=== PATIENT | male | born 1940 | race Caucasian/White ===

== ENCOUNTER 2017-02-05 09:51 | Inpatient (IN) | payer MEDICARE ==
[2017-02-05] VITALS (18 sets, daily range): BP systolic 131–174; BP diastolic 65–94; PULSE 57–75; RESP 16–20; TEMP 97.6–97.8; O2SAT 93–99
[~2017-02-05] VITALS: Ht 170.2 cm; Wt 83.1 kg
[~2017-02-05 09:51] MED LIST: MEDR4PAK3 PO; METO100T PO; VYTO10TA32 PO
--- NOTE | 2017-02-05 10:09 | PD ---
HPI Chief Complaint: Respiratory Symptoms Time Seen by Provider: 09:58 Travel History International Travel<30 days: No Contact w/Intl Traveler<30days: No Traveled to known affect area: No History of Present Illness HPI This is a 76-year-old male who has a history of coronary artery disease who presents to the emergency department with 3 days of increasing shortness of breath described as difficulty taking a deep breath, worse with exertion and worse with laying flat. He says he was up all night last night trying to catch his breath. He says his daughter is sick with bronchitis. He denies any productive cough, fevers or chills but has had some rhinorrhea. He recently returned from a car ride to [facility] during which she was in the car for 2 days straight. He denies any leg swelling. PFSH Past Medical History High Cholesterol: Yes Coronary Artery Disease: Yes Gout: Yes Hypertension: Yes Past Surgical History Coronary Artery Bypass Graft: Yes Social History Alcohol Use: Yes ("FEW DRINKS PER WEEK") Tobacco Use: No Allergies-Medications (Allergen,Severity, Reaction): Coded Allergies: No Known Allergies (Unverified , 02/05/17) Reported Meds & Prescriptions Reported Meds & Active Scripts Active Reported Isosorbide Mononitrate 20 Mg Tab 30 Mg PO DAILY Take 2 doses 7 hours apart. Aspir-81 (Aspirin) 81 Mg Tabdr 81 Mg PO DAILY Nitrostat SL (Nitroglycerin) 0.4 Mg Subl 0.4 Mg SL DIRECTED PRN 1 tablet under the tongue as needed for chest pain. Repeat every 5 minutes for a total of 3 DOSES or call 911 if NO relief. Proscar (Finasteride) 5 Mg Tab 5 Mg PO DAILY Do not crush. Amlodipine (Amlodipine Besylate) 10 Mg Tab 10 Mg PO DAILY Rosuvastatin (Rosuvastatin Calcium) 10 Mg Tab 10 Mg PO DAILY Clopidogrel (Clopidogrel Bisulfate) 75 Mg Tab 75 Mg PO DAILY Metoprolol Tartrate 100 Mg Tab 100 Mg PO BID Ranexa ER 12 HR (Ranolazine) 500 Mg Tab 500 Mg PO BID Review of Systems Except as stated in HPI: all other systems reviewed are Neg Physical Exam Narrative GENERAL:Well appearing, no acute distress SKIN: Focused skin assessment warm and dry. HEAD: Atraumatic. Normocephalic. EYES: Pupils equal and round. No injection or drainage. ENT: Moist mucous membranes NECK: Trachea midline. CARDIOVASCULAR: Regular rate and rhythm. No murmur appreciated. RESPIRATORY: Mild expiratory wheeze, mild tachypnea GASTROINTESTINAL: Abdomen soft, non-tender, nondistended. MUSCULOSKELETAL: No obvious deformities. NEUROLOGICAL: Awake and alert. No obvious cranial nerve deficits. Moving all extremities. PSYCHIATRIC: Appropriate mood and affect; insight and judgment normal. Data Data Last Documented VS Vital Signs Date Time Temp Pulse Resp B/P Pulse Ox O2 Delivery O2 Flow Rate FiO2 02/05/17 11:05 64 16 166/84 98 Nasal Cannula 2 02/05/17 09:53 97.8 Orders Complete Blood Count With Diff (02/05/17 10:08) Comprehensive Metabolic Panel (02/05/17 10:08) D-Dimer (02/05/17 10:08) Troponin I (02/05/17 10:08) Iv Access Insert/Monitor (02/05/17 10:08) Electrocardiogram (02/05/17 10:08) Ecg Monitoring (02/05/17 10:08) Oximetry (02/05/17 10:08) Oxygen Administration (02/05/17 10:08) Chest, Single Ap (02/05/17 10:08) Sodium Chloride 0.9% Flush (Ns Flush) (02/05/17 10:15) Albuterol-Ipratropium Neb (Duoneb Neb) (02/05/17 10:15) Ventilation & Perfusion Scan (02/05/17 ) B-Type Natriuretic Peptide (02/05/17 10:39) Admit Order (Ed Use Only) (02/05/17 12:02) Consult Cardiology (02/05/17 ) Admit To Inpatient (02/05/17 ) Vital Signs (Adult) Q4H (02/05/17 12:03) Activity Bed Rest (02/05/17 12:03) 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 / 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 .CONTINUOUS (02/05/17 12:03) Diet Heart Healthy (02/05/17 Lunch) Sodium Chloride 0.9% Flush (Ns Flush) (02/05/17 12:15) Sodium Chloride 0.9% Flush (Ns Flush) (02/05/17 21:00) Ondansetron Inj (Zofran Inj) (02/05/17 12:15) Comprehensive Metabolic Panel (02/06/17 06:00) Complete Blood Count With Diff (02/06/17 06:00) Naloxone Inj (Narcan Inj) (02/05/17 12:15) Inpatient Certification (02/05/17 ) Labs Laboratory Tests Test 02/05/17 10:10 White Blood Count 9.5 TH/MM3 Red Blood Count 4.18 MIL/MM3 Hemoglobin 12.5 GM/DL Hematocrit 35.8 % Mean Corpuscular Volume 85.6 FL Mean Corpuscular Hemoglobin 29.9 PG Mean Corpuscular Hemoglobin 35.0 % Concent Red Cell Distribution Width 14.0 % Platelet Count 222 TH/MM3 Mean Platelet Volume 9.7 FL Neutrophils (%) (Auto) 75.6 % Lymphocytes (%) (Auto) 13.3 % Monocytes (%) (Auto) 6.0 % Eosinophils (%) (Auto) 2.8 % Basophils (%) (Auto) 2.3 % Neutrophils # (Auto) 7.1 TH/MM3 Lymphocytes # (Auto) 1.3 TH/MM3 Monocytes # (Auto) 0.6 TH/MM3 Eosinophils # (Auto) 0.3 TH/MM3 Basophils # (Auto) 0.2 TH/MM3 CBC Comment DIFF FINAL Differential Comment D-Dimer Quantitative (PE/DVT) 0.75 MG/L FEU Sodium Level 138 MEQ/L Potassium Level 4.4 MEQ/L Chloride Level 103 MEQ/L Carbon Dioxide Level 25.3 MEQ/L Anion Gap 10 MEQ/L Blood Urea Nitrogen 29 MG/DL Creatinine 1.60 MG/DL Estimat Glomerular Filtration 42 ML/MIN Rate Random Glucose 210 MG/DL Calcium Level 9.0 MG/DL Total Bilirubin 0.8 MG/DL Aspartate Amino Transf 22 U/L (AST/SGOT) Alanine Aminotransferase 46 U/L (ALT/SGPT) Alkaline Phosphatase 70 U/L Troponin I 0.03 NG/ML B-Type Natriuretic Peptide 665 PG/ML Total Protein 7.2 GM/DL Albumin 3.8 GM/DL MDM Medical Decision Making Medical Screen Exam Complete: Yes Emergency Medical Condition: Yes Interpretation(s) Afebrile, no tachycardia, normotensive EKG: Sinus arrhythmia, left axis deviation, ST depressions in the lateral leads Mild anemia Renal insufficiency Troponin is 0.03 BNP is 665 Last 24 hours Impressions Chest X-Ray 02/05/17 1008 Signed Impressions: Service Date/Time: Sunday, February 05, 2017 10:24 - CONCLUSION: 1. Interstitial opacities in lower lung zones bilaterally. These are of uncertain chronicity since no prior imaging studies are available. In the acute setting this could represent interstitial pulmonary edema. 2. Mildly enlarged cardiac silhouette. Dain Calabrese MD Differential Diagnosis Congestive heart failure, pulmonary embolism, bronchitis, acute coronary syndrome Narrative Course This is a 76-year-old male who presents to the emergency department with shortness of breath and orthopnea. He has a history of valvular disease and coronary artery disease. He also had a recent long trip to [facility]. He was placed on a monitor and an IV was established. Labs were obtained which demonstrate renal insufficiency and a BNP is 665. Chest x-ray demonstrates some pulmonary edema. D-dimer is slightly elevated, likely normal for age but in the setting of recent travel VQ scan will be ordered. I spoke to Dr. Chicas regarding the patient's new congestive heart failure which is likely the etiology of his symptoms. He recommended the patient be transferred to the main hospital for possible intervention in the setting of valvular disease. Physician Communication Physician Communication Discussed with Dr. Chicas and Dr. Herbert Diagnosis Primary Impression: Congestive heart failure Qualified Code: I50.9 - Acute on chronic congestive heart failure, unspecified congestive heart failure type Admitting Information Admitting Physician Requests: Admit Cassia Wan MD February 05, 2017 10:09
[2017-02-05] MEDS ORDERED: RESP: ALBUTEROL 2.5 MG/IPRATROPIUM 0.5 MG NEB (SCH) INH ONE (10:15)
[2017-02-05] MEDS ORDERED: SODIUM CHLORIDE 0.9% FLUSH 10 ML FLUSH IVF PRN (10:15)
[2017-02-05 10:19] LABS: AUTOMATED NEUTROPHIL # 7.1 TH/MM3 (1.8-7.7); BASOPHIL # 0.2 TH/MM3 (0-0.2); BASOPHIL % 2.3 % (0.0-2.0); EOSINOPHIL # 0.3 TH/MM3 (0-0.4); EOSINOPHIL % 2.8 % (0.0-4.0); HEMATOCRIT 35.8 % (39.0-51.0); HEMO FLAGS DIFF FINAL; LYMPH % 13.3 % (9.0-44.0); LYMPHOCYTE # 1.3 TH/MM3 (1.0-4.8); MEAN CELL VOLUME 85.6 FL (80.0-100.0); MEAN CORPUSCULAR HEMOGLOBIN 29.9 PG (27.0-34.0); NEUT % 75.6 % (16.0-70.0); PLATELET COUNT 222 TH/MM3 (150-450); RED BLOOD COUNT 4.18 MIL/MM3 (4.50-5.90); WHITE BLOOD COUNT 9.5 TH/MM3 (4.0-11.0)
[2017-02-05 10:27] LABS: CHLORIDE 103 MEQ/L (98-107); POTASSIUM 4.4 MEQ/L (3.5-5.1); SODIUM (NA) 138 MEQ/L (136-145)
[2017-02-05 10:31] LABS: ANION GAP 10 MEQ/L (5-15); BICARBONATE 25.3 MEQ/L (21.0-32.0); BLOOD UREA NITROGEN 29 MG/DL (7-18)
[2017-02-05 10:34] LABS: ALT (GPT) 46 U/L (12-78); AST (GOT) 22 U/L (15-37); GLOMERULAR FILTRATION RATE 42 ML/MIN (>89)
[2017-02-05 10:35] LABS: TOTAL BILIRUBIN ADULT 0.8 MG/DL (0.2-1.0)
[2017-02-05 10:37] LABS: ALKALINE PHOSPHATASE 70 U/L (45-117)
[2017-02-05] MEDS ORDERED: ASPI81TA81 PO (10:42)
[2017-02-05] MEDS ORDERED: PROS5TAB PO (10:42)
[2017-02-05] MEDS ORDERED: NITR0.4S SL (10:42)
[2017-02-05] MEDS ORDERED: RANO500 PO (10:42)
[2017-02-05] MEDS ORDERED: CLOP75TA PO (10:42)
[2017-02-05] MEDS ORDERED: AMLO10TA2 PO (10:42)
[2017-02-05] MEDS ORDERED: METO100T PO (10:42)
[2017-02-05] MEDS ORDERED: ISOS20TA PO (10:42)
[2017-02-05] MEDS ORDERED: ROSU1TAB6 PO (10:42)
--- NOTE | 2017-02-05 10:54 | RADHPO ---
EXAM DATE/TIME: 02/05/2017 10:24 [facility] COMPARISON: No previous studies available for comparison. INDICATIONS : Short of breath. MEDICAL HISTORY : Cardiovascular disease. SURGICAL HISTORY : CABG. Coronary artery stent. ENCOUNTER: Initial ACUITY: 2 days PAIN SCORE: 0/10 LOCATION: Bilateral chest FINDINGS: Portable AP view of the chest demonstrates mildly enlarged cardiac silhouette. Patient is post median sternotomy. Lungs are underinflated and there are interstitial opacities in the lower lung zones andrea aterally. No pneumothorax or definite pleural effusion is seen. The bones and soft tissues demonstrat e no acute finding. CONCLUSION: 1. Interstitial opacities in lower lung zones bilaterally. These are of uncertain chronicity since no prior imaging studies are available. In the acute setting this could represent interstitial pulmonar y edema. 2. Mildly enlarged cardiac silhouette. Dain Calabrese MD on February 05, 2017 at 10:51 Board Certified Radiologist. This report was verified electronically.
[2017-02-05] MEDS ORDERED: SODIUM CHLORIDE 0.9% FLUSH 10 ML FLUSH IV FLUSH PRN (12:15)
[2017-02-05] MEDS ORDERED: NALOXONE HCL 0.4 MG/ML AMP IV PRN (12:15)
--- NOTE | 2017-02-05 13:55 | RADHPO ---
EXAM DATE/TIME: 02/05/2017 13:04 [facility] COMPARISON: CHEST SINGLE AP, February 05, 2017, 10:24. INDICATIONS : Shortness of breath for 3 days. Abnormal chest x-ray demonstrating interstitial opacities.. DOSE: 8.7 mCi Tc99m MAA IV 1.3 mCi Tc99m DTPA aerosol MEDICAL HISTORY : Myocardial infarction. Hypercholesterolemia. Hypertension. Stroke. SURGICAL HISTORY : Coronary artery stent. CABG ENCOUNTER: Initial ACUITY: 3 days PAIN SCALE: 0/10 LOCATION: chest TECHNIQUE: Following five minutes of tidal breathing of DTPA aerosol, planar images of the lungs were performed in eight projections. The patient was then injected with MAA, and eight-view perfusion scan was perf ormed. FINDINGS: There is an inhomogeneous pattern of aerosol delivery to the periphery of both lungs. There is moder ate central deposition of the tracer. No large or moderate focal ventilatory defects are seen. The perfusion lung scan demonstrates a mildly inhomogeneous pattern of uptake in both lungs. No larg e or moderate segmental or subsegmental defects are seen. CONCLUSION: Low probability for pulmonary embolism. Beto Terrazas MD on February 05, 2017 at 13:51 Board Certified Radiologist. This report was verified electronically.
--- NOTE | 2017-02-05 15:38 | HHI.HP ---
[facility] Service [facility] Primary Care Physician Milton Rosa MD Admission Diagnosis congestive heart failure, valvular disease Diagnoses: (1) Congestive heart failure Diagnosis: Principal (2) Abdominal distention (3) Aortic stenosis Diagnosis: Principal (4) CAD (coronary artery disease) Diagnosis: Secondary (5) Pulmonary edema Diagnosis: Principal (6) Old MA (myocardial infarction) Diagnosis: Secondary (7) CHF exacerbation Diagnosis: Principal (8) Systolic and diastolic CHF, acute on chronic Diagnosis: Principal (9) Hx of CABG Diagnosis: Secondary Travel History International Travel<30 Days: No Contact w/Intl Traveler <30 Da: No Traveled to Known Affected Are: No History of Present Illness Mr. Roland is a 76-year-old male. He is here with 3 days of increasing shortness of breath. She also notes that his abdomen feels like it's becoming more distended. He feels this might be affecting his breathing. Symptoms are worse when he lays flat. He feels he has been having difficulty sleeping by not being else of breathe. She has not had a cough but reports that his daughter is home sick with bronchitis. She was on a car trip to [place] which lasted 2 days. No complaints of bilateral leg pain or swelling. Past medical history includes CHF, old MA, CABG 3, coronary stents, coronary artery disease , aortic stenosis, and mitral valve regurgitation. She is not a smoker and only drinks occasionally. No chest pain reported. No syncope or presyncope. 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 Review of Systems Constitutional: COMPLAINS OF: Fatigue, DENIES: Fever, Weight loss, Chills Eyes: DENIES: Diplopia Ears, nose, mouth, throat: DENIES: Hearing loss, Vertigo Respiratory: COMPLAINS OF: Shortness of breath, DENIES: Cough, Wheezing Cardiovascular: COMPLAINS OF: Dyspnea on Exertion, DENIES: Chest pain, Syncope Gastrointestinal: DENIES: Abdominal pain, Black stools, Bloody stools Musculoskeletal: DENIES: Joint pain, Muscle aches, Stiffness Integumentary: DENIES: Abnormal pigmentation Hematologic/lymphatic: DENIES: Bruising Immunologic/allergic: DENIES: Eczema Neurologic: DENIES: Abnormal gait Psychiatric: DENIES: Anxiety Abdominal distention Past Family Social History Past Medical History CHF, old MA, CABG 3, coronary stents, coronary artery disease, aortic stenosis , mitral valve regurgitation Past Surgical History Discharge 3 Reported Medications Reported Meds & Active Scripts Active Reported Isosorbide Mononitrate 20 Mg Tab 30 Mg PO DAILY Take 2 doses 7 hours apart. Aspir-81 (Aspirin) 81 Mg Tabdr 81 Mg PO DAILY Nitrostat SL (Nitroglycerin) 0.4 Mg Subl 0.4 Mg SL DIRECTED PRN 1 tablet under the tongue as needed for chest pain. Repeat every 5 minutes for a total of 3 DOSES or call 911 if NO relief. Proscar (Finasteride) 5 Mg Tab 5 Mg PO DAILY Do not crush. Amlodipine (Amlodipine Besylate) 10 Mg Tab 10 Mg PO DAILY Rosuvastatin (Rosuvastatin Calcium) 10 Mg Tab 10 Mg PO DAILY Clopidogrel (Clopidogrel Bisulfate) 75 Mg Tab 75 Mg PO DAILY Metoprolol Tartrate 100 Mg Tab 100 Mg PO BID Ranexa ER 12 HR (Ranolazine) 500 Mg Tab 500 Mg PO BID Allergies: Coded Allergies: No Known Allergies (Unverified , 02/05/17) Family History Noncontributory Social History Occasional alcohol use No smoking No drug abuse Physical Exam Vital Signs Vital Signs Date Time Temp Pulse Resp B/P Pulse Ox O2 Delivery O2 Flow Rate FiO2 02/05/17 14:25 69 16 164/90 95 Room Air 02/05/17 12:15 66 16 162/94 97 Nasal Cannula 2 02/05/17 11:05 64 16 166/84 98 Nasal Cannula 2 02/05/17 10:23 97 Nasal Cannula 2.00 02/05/17 10:15 18 98 Nasal Cannula 2 02/05/17 10:15 98 Nasal Cannula 2 02/05/17 10:15 62 18 98 Nasal Cannula 2 02/05/17 10:05 67 16 174/85 96 Room Air 02/05/17 09:53 97.8 71 18 139/78 98 Physical Exam GENERAL: NAD, A&Ox3 SKIN: Warm and dry. HEAD: Normocephalic. EYES: No scleral icterus. No injection or drainage. NECK: Supple, trachea midline. No JVD or lymphadenopathy. CARDIOVASCULAR: Regular rate and rhythm without murmurs, gallops, or rubs. RESPIRATORY: Breath sounds equal bilaterally. No accessory muscle use. Bilateral base crackles. GASTROINTESTINAL: Abdomen soft, non-tender. Abdominal distention. MUSCULOSKELETAL: No cyanosis. No edema of lower extremities. Laboratory Laboratory Tests Test 02/05/17 10:10 White Blood Count 9.5 Red Blood Count 4.18 Hemoglobin 12.5 Hematocrit 35.8 Mean Corpuscular Volume 85.6 Mean Corpuscular Hemoglobin 29.9 Mean Corpuscular Hemoglobin 35.0 Concent Red Cell Distribution Width 14.0 Platelet Count 222 Mean Platelet Volume 9.7 Neutrophils (%) (Auto) 75.6 Lymphocytes (%) (Auto) 13.3 Monocytes (%) (Auto) 6.0 Eosinophils (%) (Auto) 2.8 Basophils (%) (Auto) 2.3 Neutrophils # (Auto) 7.1 Lymphocytes # (Auto) 1.3 Monocytes # (Auto) 0.6 Eosinophils # (Auto) 0.3 Basophils # (Auto) 0.2 CBC Comment DIFF FINAL Differential Comment D-Dimer Quantitative (PE/DVT) 0.75 Sodium Level 138 Potassium Level 4.4 Chloride Level 103 Carbon Dioxide Level 25.3 Anion Gap 10 Blood Urea Nitrogen 29 Creatinine 1.60 Estimat Glomerular Filtration 42 Rate Random Glucose 210 Calcium Level 9.0 Total Bilirubin 0.8 Aspartate Amino Transf 22 (AST/SGOT) Alanine Aminotransferase 46 (ALT/SGPT) Alkaline Phosphatase 70 Troponin I 0.03 B-Type Natriuretic Peptide 665 Total Protein 7.2 Albumin 3.8 Result Diagram: 02/05/17 1010 02/05/17 1010 Assessment and Plan Problem List: (1) Congestive heart failure ICD Code: I50.9 Status: Acute (2) Abdominal distention ICD Code: R14.0 Status: Acute (3) Aortic stenosis ICD Code: I35.0 Status: Acute (4) CAD (coronary artery disease) ICD Code: I25.10 Status: Acute (5) Pulmonary edema ICD Code: J81.1 Status: Acute (6) Old MA (myocardial infarction) ICD Code: I25.2 Status: Acute (7) CHF exacerbation ICD Code: I50.9 Status: Acute (8) Systolic and diastolic CHF, acute on chronic ICD Code: I50.43 Status: Acute (9) Hx of CABG ICD Code: Z95.1 Status: Acute Assessment and Plan assessment and plan 76-year-old male with chronic congestive heart failure and aortic stenosis Diastolic and systolic CHF with acute exacerbation on chronic state Aortic stenosis Mitral valve regurg Pulmonary edema Possible ascites Diuresis may benefit but will need to occur cautiously given his aortic stenosis Lasix 10 mg IV every 6 hours Follow on telemetry Continue home dose of metoprolol Consult cardiology Abdominal ultrasound to evaluate for ascites, distended feeling may be secondary to bowel edema without ascites VQ scan shows no evidence of palmar embolus Coronary artery disease History of coronary stents History of CABG 3 Old myocardial infarction Continue home medications including aspirin, isosorbide mononitrate, when necessary nitroglycerin Continue Plavix Continue Ranexa Acute kidney injury Light diuresis Chronic kidney disease may be present Follow renal function Hyperglycemia Possible diabetes mellitus type 2 (the patient does not report that his condition) Follow blood sugars Insulin sliding scale Diabetic diet Benign prostatic hypertrophy Continue Proscar Hypertension continue amlodipine next Follow blood pressure Hyperlipidemia Continue statin DVT prophylaxis Lovenox Physician Certification 2 Midnight Certification Type: Admission for Inpatient Services Order for Inpatient Services The services are ordered in accordance with Medicare regulations or non- Medicare payer requirements, as applicable. In the case of services not specified as inpatient-only, they are appropriately provided as inpatient services in accordance with the 2-midnight benchmark. Estimated LOS (days): 3 days is the estimated time the patient will need to remain in the hospital, assuming treatment plan goals are met and no additional complications. Post-Hospital Plan: Home Problem Qualifiers (1) Congestive heart failure: Qualified Code: I50.9 - Acute on chronic congestive heart failure, unspecified congestive heart failure type Ken Herbert MD February 05, 2017 3:38 pm
[2017-02-05] MEDS ORDERED: DEXTROSE 50% IN WATER 50 ML VIAL(D50) IV PRN (15:45)
[2017-02-05] MEDS ORDERED: NITROGLYCERIN 0.4 MG SL 25 TABS/BTL SL PRN (15:45)
[2017-02-05] MEDS ORDERED: GLUCAGON 1 MG/ML VIAL OTHER PRN (15:45)
[2017-02-05] MEDS: INSULIN ASPART SUPPLEMENTAL SCALE SQ SCH ×2 (16:00→21:00)
--- NOTE | 2017-02-05 16:57 | RADHPO ---
EXAM DATE/TIME: 02/05/2017 16:06 [facility] COMPARISON: No previous studies available for comparison. INDICATIONS : Abdominal distention. MEDICAL HISTORY : Hypercholesterolemia. Hypertension. CVA. Coronary artery disease. Dyspnea. Gout. SURGICAL HISTORY : CABG. Coronary artery stent. Cardiac cath. Twisted bowel repair. Right leg skin graft. ENCOUNTER: Initial ACUITY: 1 day PAIN SCORE: 0/10 LOCATION: Abdomen. AREA EVALUATED: Abdominal quadrants FINDINGS: Imaging of the abdomen and pelvis was performed to evaluate for ascites for possible paracentesis. CONCLUSION: No significant ascites Dain Chase MD on February 05, 2017 at 16:55 Board Certified Radiologist. This report was verified electronically.
[2017-02-05] MEDS: FUROSEMIDE 20 MG/2 ML VIAL IV PUSH SCH ×2 (16:59→22:25)
[2017-02-05] MEDS: ENOXAPARIN SODIUM 30 MG/0.3 ML SYRINGE SQ SCH (17:00)
[2017-02-05] MEDS ORDERED: RESP: ALBUTEROL 2.5 MG/IPRATROPIUM 0.5 MG NEB (PRN) NEB (21:15)
[2017-02-05] MEDS: METOPROLOL TARTRATE 100 MG TAB PO SCH (22:26)
[2017-02-05] MEDS: RANOLAZINE 500 MG EXTENDED RELEASE TAB PO SCH (22:27)
[2017-02-05] MEDS: ONDANSETRON HCL 4 MG/2 ML VIAL IVP PRN (22:27)
[2017-02-05] MEDS: SODIUM CHLORIDE 0.9% FLUSH 10 ML FLUSH IV FLUSH SCH (22:27)
[2017-02-06] VITALS (26 sets, daily range): BP systolic 107–136; BP diastolic 54–79; PULSE 52–88; RESP 16–18; TEMP 97.6–98.2; O2SAT 94–99
[2017-02-06] MEDS: INSULIN ASPART SUPPLEMENTAL SCALE SQ SCH (05:40)
[2017-02-06] MEDS: ISOSORBIDE MONONITRATE 30 MG TAB PO SCH (05:40)
[2017-02-06] MEDS: FUROSEMIDE 20 MG/2 ML VIAL IV PUSH SCH ×4 (05:40→21:19)
[2017-02-06 06:22] LABS: AUTOMATED NEUTROPHIL # 5.8 TH/MM3 (1.8-7.7); BASOPHIL # 0.1 TH/MM3 (0-0.2); BASOPHIL % 0.6 % (0.0-2.0); EOSINOPHIL # 0.4 TH/MM3 (0-0.4); HEMATOCRIT 33.8 % (39.0-51.0); HEMO FLAGS DIFF FINAL; LYMPH % 19.8 % (9.0-44.0); LYMPHOCYTE # 1.7 TH/MM3 (1.0-4.8); MEAN CELL VOLUME 85.4 FL (80.0-100.0); MEAN CORPUSCULAR HEMOGLOBIN 29.3 PG (27.0-34.0); MEAN CORPUSCULAR HGB CONC 34.3 % (32.0-36.0); MONO % 9.5 % (0.0-8.0); NEUT % 66.1 % (16.0-70.0); PLATELET COUNT 213 TH/MM3 (150-450); RED BLOOD COUNT 3.96 MIL/MM3 (4.50-5.90); RED CELL DISTRIBUTION WIDTH 14.6 % (11.6-17.2); WHITE BLOOD COUNT 8.8 TH/MM3 (4.0-11.0)
[2017-02-06 06:49] LABS: ANION GAP 9 MEQ/L (5-15); AST (GOT) 19 U/L (15-37); BICARBONATE 28.7 MEQ/L (21.0-32.0); BLOOD UREA NITROGEN 27 MG/DL (7-18); CHLORIDE 102 MEQ/L (98-107); GLOMERULAR FILTRATION RATE 41 ML/MIN (>89); POTASSIUM 4.1 MEQ/L (3.5-5.1); SODIUM (NA) 140 MEQ/L (136-145)
[2017-02-06 06:54] LABS: ALKALINE PHOSPHATASE 60 U/L (45-117); ALT (GPT) 37 U/L (12-78); TOTAL BILIRUBIN ADULT 1.1 MG/DL (0.2-1.0)
[2017-02-06] MEDS: RANOLAZINE 500 MG EXTENDED RELEASE TAB PO SCH ×2 (08:41→21:18)
[2017-02-06] MEDS: SODIUM CHLORIDE 0.9% FLUSH 10 ML FLUSH IV FLUSH SCH ×2 (08:41→21:00)
[2017-02-06] MEDS: CLOPIDOGREL 75 MG TAB PO SCH (08:41)
[2017-02-06] MEDS: ATORVASTATIN 20 MG TAB PO SCH (08:41)
[2017-02-06] MEDS: ASPIRIN EC 81 MG TABEC PO SCH (08:41)
[2017-02-06] MEDS: METOPROLOL TARTRATE 100 MG TAB PO SCH ×2 (08:42→21:19)
[2017-02-06] MEDS: FINASTERIDE 5 MG TAB PO SCH (08:42)
[2017-02-06] MEDS: ONDANSETRON HCL 4 MG/2 ML VIAL IVP PRN (08:43)
--- NOTE | 2017-02-06 09:00 | HHI.PR ---
Subjective Remarks Patient seen for f/u SOB. 02/06/17-patient seen this AM. No acute events overnight. Pulse in the 50s overnight. Other vitals WNL. Nasir reports SOB improving with breathing tx. Has been able to walk around room without getting SOB now. Wants more frequent breathing tx. No CP. No F/C. He has no other complaints today. Objective Vitals Vital Signs Date Time Temp Pulse Resp B/P Pulse Ox O2 Delivery O2 Flow Rate FiO2 02/06/17 06:48 54 02/06/17 05:00 54 02/06/17 04:00 52 02/06/17 03:20 98.0 56 16 122/59 99 02/06/17 03:20 52 02/06/17 02:25 52 02/06/17 01:44 53 02/06/17 00:00 55 02/05/17 23:51 59 02/05/17 23:00 97.8 57 18 131/65 93 02/05/17 22:16 98 Nasal Cannula 2.00 02/05/17 22:00 60 02/05/17 21:00 62 02/05/17 20:30 97.6 71 20 160/92 99 02/05/17 20:10 75 16 155/70 98 Nasal Cannula 2 02/05/17 19:10 63 16 155/72 96 Nasal Cannula 2 02/05/17 18:30 74 16 160/77 98 Nasal Cannula 2 02/05/17 18:00 72 16 98 Nasal Cannula 2 02/05/17 17:25 75 16 155/82 98 Nasal Cannula 2 02/05/17 16:05 70 18 97 Room Air 02/05/17 15:15 65 16 162/84 98 Nasal Cannula 2 02/05/17 14:25 69 16 164/90 95 Room Air 02/05/17 14:00 68 16 98 Nasal Cannula 2 02/05/17 12:15 68 18 98 Nasal Cannula 2 02/05/17 12:15 66 16 162/94 97 Nasal Cannula 2 02/05/17 11:05 64 16 166/84 98 Nasal Cannula 2 02/05/17 10:23 97 Nasal Cannula 2.00 02/05/17 10:15 18 98 Nasal Cannula 2 02/05/17 10:15 98 Nasal Cannula 2 02/05/17 10:15 62 18 98 Nasal Cannula 2 02/05/17 10:05 67 16 174/85 96 Room Air 02/05/17 09:53 97.8 71 18 139/78 98 I/O 02/05/17 02/05/17 02/05/17 02/06/17 02/06/17 02/06/17 07:00 15:00 23:00 07:00 15:00 23:00 Intake Total 240 ml Output Total 450 ml Balance -210 ml Intake Oral 240 ml Output Urine Total 450 ml # Bowel Movements 1 Result Diagram: 02/06/17 0453 02/06/17 0453 Objective Remarks GENERAL: NAD, A&Ox3 SKIN: Warm and dry. HEAD: Normocephalic. EYES: No scleral icterus. No injection or drainage. NECK: Supple, trachea midline. No JVD or lymphadenopathy. CARDIOVASCULAR: RRR. 3/6 Systolic murmur, best appreciated at the FELICIANO border. RESPIRATORY: Breath sounds equal bilaterally. No accessory muscle use. Faint rales at the bases this AM (R>L). No other adventitious sounds. GASTROINTESTINAL: Abdomen soft, non-tender. Abdominal distention. MUSCULOSKELETAL: No cyanosis. No edema of lower extremities. A/P Problem List: (1) Congestive heart failure ICD Code: I50.9 Status: Acute (2) Abdominal distention ICD Code: R14.0 Status: Acute (3) Aortic stenosis ICD Code: I35.0 Status: Acute (4) CAD (coronary artery disease) ICD Code: I25.10 Status: Acute (5) Pulmonary edema ICD Code: J81.1 Status: Acute (6) Old RI (myocardial infarction) ICD Code: I25.2 Status: Acute (7) CHF exacerbation ICD Code: I50.9 Status: Acute (8) Systolic and diastolic CHF, acute on chronic ICD Code: I50.43 Status: Acute (9) Hx of CABG ICD Code: Z95.1 Status: Acute Assessment and Plan 76-year-old male with chronic congestive heart failure and aortic stenosis. Diastolic and systolic CHF with acute exacerbation on chronic state Aortic stenosis Mitral valve regurg Pulmonary edema Possible ascites -negative 210 balance over the past 24 hours. Diuresis may benefit but will need to occur cautiously given his aortic stenosis. Cont Lasix 10 mg IV every 6 hours. Plan for Lasix 40mg IV x1 today if worsening pulmonary congestion. -Follow on telemetry -will add q6 SANJIV duoneb. Cont q2 PRN duoneb. -Continue home dose of metoprolol -BNP in the 600s -CXR shows ? interstitial pulmonary edema. Will repeat today. -Abdominal u/s shows no significant Ascites. -VQ scan low probability of PE -Cards consulted. Awaiting recs. Coronary artery disease History of coronary stents History of CABG 3 Old myocardial infarction -Continue home medications including aspirin, isosorbide mononitrate, when necessary nitroglycerin -Continue Plavix -Continue Ranexa Acute kidney injury -creatinine stable at 1.6. Uncertain baseline. May have CKD. -Light diuresis, as above -daily BMP Hyperglycemia -likely stress RXN. Blood glucose in the 200s on admission. Have since normalized. -DC accucheks + ssi. Change to heart healthy diet. Benign prostatic hypertrophy -Continue Proscar Hypertension -appears well controlled -continue amlodipine Hyperlipidemia -Continue statin DVT prophylaxis -Lovenox Problem Qualifiers (1) Congestive heart failure: Qualified Code: I50.9 - Acute on chronic congestive heart failure, unspecified congestive heart failure type Jose Woodruff MD R3 February 06, 2017 09:00
--- NOTE | 2017-02-06 09:43 | RADRPT ---
EXAM DATE/TIME: 02/06/2017 08:55 [facility] COMPARISON: CHEST SINGLE AP, February 05, 2017, 10:24. INDICATIONS : Short of breath MEDICAL HISTORY : Cardiovascular disease. SURGICAL HISTORY : CABG. Coronary artery stent. ENCOUNTER: Subsequent ACUITY: 2 days PAIN SCORE: 0/10 LOCATION: Bilateral chest FINDINGS: A single view of the chest demonstrates cardiomegaly and previous median sternotomy. Bilateral air sp soraida disease has significantly improved. Minimal lingular density remains. Right lung clear. Osseous structures are intact. CONCLUSION: 1. Mild cardiomegaly. 2. Significant improvement in bilateral airspace disease. Minimal residual disease in the lingula. Freddy Harrison MD on February 06, 2017 at 9:40 Board Certified Radiologist. This report was verified electronically.
[2017-02-06] MEDS ORDERED: SODIUM CHLOR 0.9% 1000 ML INJ 1,000 ML IV SCH (11:00)
[2017-02-06] MEDS: RESP: ALBUTEROL 2.5 MG/IPRATROPIUM 0.5 MG NEB (SCH) NEB ×2 (12:59→20:43)
--- NOTE | 2017-02-06 13:04 | MB ---
cc: MEGAN DIAZ HUMAYUN A. M.D. DATE OF CONSULTATION: 02/06/2017 HISTORY OF PRESENT ILLNESS Thank you Dr. Herbert for asking me to see this very pleasant gentleman. He has a remote history of bypass surgery, possibly x3. Following this a few years later he underwent stent placement. The patient has severe aortic stenosis and presented with increasing shortness of breath, elevated BNP and signs and symptoms of congestive heart failure. He is feeling much better now and his shortness of breath is improved. We previously discussed in the office possible aortic valve replacement since his aortic stenosis was very severe by echo. He also has a history of prior myocardial infarction and pulmonary edema. He had a cath in 2013 and 2014 where ANDRESSA was )0.9 cm sq (not severe). REVIEW OF SYSTEMS Denies seizure, headache, vomiting, diarrhea, dysuria and hematuria. Positive for shortness of breath as above. The remainder of a 12-point review of systems is negative. He also has a past history of mitral valve regurgitation. ALLERGIES None known. FAMILY HISTORY Noncontributory. SOCIAL HISTORY Non-smoker, non-drinker. MEDICATIONS Medications at home include: 1. Isosorbide. 2. Aspirin. 3. Nitroglycerin. 4. Proscar. 5. Amlodipine. 6. Clopidogrel. 7. Metoprolol. 8. Ranexa. PHYSICAL EXAMINATION VITAL SIGNS: Pulse 69, blood pressure 164/90, respirations 16. HEENT: Eyes show no xanthelasma. Mouth shows no cyanosis or pallor. NECK: No JVD. HEART: He has two heart sounds. 3/6 systolic murmur. CHEST: Clear today. ABDOMEN: Soft. No hepatosplenomegaly. EXTREMITIES: Legs reveal no evidence of edema. NEUROLOGIC: Grossly intact. SKIN: Intact. LABORATORY White count 9.5, hemoglobin 12.5, platelet count 222. Creatinine is elevated at 1.6. Potassium 4.4. BNP elevated at 665. ASSESSMENT AND PLAN The patient has congestive heart failure. He is improved with diuretics and breathing is much better. He is off oxygen this morning when going to the bathroom. He has no rales. Chest x-ray shows significant improvement. We have discussed possible heart catheterization to see what is going on with his coronaries and valve before making a definitive discussion whether he needs just aortic valve replacement or whether he also need bypass surgery. The risks of heart catheterization, , bleeding, myocardial infarction, perforation, aspiration, renal failure, foreseen and foreseen complications were reviewed. The patient fully appeared to understand the risks and is willing to proceed. Will plan to proceed with this as soon as possible. Dave Chicas MD, CP,[facility] [place]A/NIKKI /10:25 AM /12:43 PM DARIUS
[2017-02-06] MEDS ORDERED: HEPARIN-NS/PF INJ 500 ML ONE (13:50)
[2017-02-06] MEDS ORDERED: MIDAZOLAM HCL 2 MG/2 ML VIAL ONE ×2 (13:52→14:50)
--- NOTE | 2017-02-06 14:51 | EKG ---
Date Performed: 02/05/2017 Time Performed: 10:11:18 PTAGE: 76 years EKG: Sinus arrhythmia Leftward axis LVH with secondary repolarization abnormality Extensive ST-T changes may be due to hypertrophy and/or ischemia Abnormal ECG NO PREVIOUS TRACING DOCTOR: Dave Chicas Interpretating Date/Time 02/06/2017 14:49:38
--- NOTE | 2017-02-06 15:33 | CATHPROC ---
[employer] HIS Report Study Information Study Number Scheduled Start Study Start [id number] 02/06/2017 Feb 06 2017 1:46PM Referring Institution Admit Source Facility Department 1 Emergency department [facility] - Corporate Associate Attorney Physician and Clinical Staff Initial Dave Tejeda Cable Driller Martha Saldivar,JORI Cable Driller Lorena Cortez,RN Recorder Efe, Darius,RT(R) Scrub Elisa Castellon,DIANA TECH2 Procedures Performed Procedure Location (Site) Vessel Name Angiogram LV LV Ventricle Coronary Angiograms RCA Right Coronary Coronary Angiograms ANDERSEN-LAD Left Coronary Coronary Angiograms Gft. Stump 1 SVG Graft Coronary Angiograms SVG-RAMUS Left Coronary LV Gram-hand inj. LV LV Ventricle Wire insertion Fem Art (right) Femoral Art Equipment Time Dredging Inspector Description Size Mfg Part Number Used/Scraped [id number] 14:20 BARAHONA CORTEZ SWAN SHAYLA CATHETER FR 7 Used *[id number] TRANSDUCER, TRUWAVE 14:20 BARAHONA CORTEZ * [id number] Used W/[employer]OCK TRANSDUCER, TRUWAVE 14:20 BARAHONA CORTEZ * [id number] Used W/STOCKCOCK [id number]- INTRODUCER SET, 14:20 [employer] FR 5 SC-NT-U-SST Used MICROPUNCTURE, STIFFENED *[id number] [id number] *[id number] [id number] *[id number] [id number] *[id number] 538-420 *[id number] 538-472 *[id number] *[id number] WIRE, HYDROSTEER 260CM [id number] 15:03 DAIG/[employer]. [employer] MEDICAL 260CM Used STRAIGHT GLIDE *[id number] INTRODUCER SET, 14:20 [facility] MEDICAL * [id number] Used MICROPUNCTURE [id number] 14:20 [employer] INDUSTRIES PACK, CCL CUSTOM * Used *[id number] 14:20 MEDLINE PACER PEN, SKIN DUAL W/ RULER * [id number] Used [id number] 14:30 [employer] MEDICAL WIRE, 3MMJ .025 * Used *[id number] 14:20 [employer] MEDICAL WIRE, 3MMJ .035 180CM 180CM Used *[id number] 15:07 [employer] MEDICAL WIRE, EXCHANGE 260CM 3MMJ 260CM Used *[id number] PROBE COVER, STERILE 14:20 [employer] MEDICAL * [id number] Used ULTRASOUND W/ GEL [id number] 14:20 NAMIC MANIFOLD, 4 PORT * Used *[id number] 14:20 [employer] OMNIPAQUE, 350 MG, 150ML 150ML [id number] Used 14:08 [employer] OMNIPAQUE, 350 MG, 150ML 150ML [id number] Used [id number] 14:20 [employer] BLANKET,WARM AIR CCL * Used *[id number] 14:20 [employer] MEDICAL SHEATH, FR4 TERUMO (10CM) FR 4 [id number] Used 14:20 [employer] MEDICAL SHEATH, FR7 TERUMO (10CM) FR 7 [id number] Used History: Current Medications Medication Dosage/Unit Route Frequency Last Date/Time Taken ASA NTG SL History: Allergies Allergy Reaction No Known Allergies History: Risk Factors Family History of Hypertension Dyslipidemia Previous OR Previous Heart Failure Premature CAD Yes Yes No Yes Yes Prior Valve Prior PCI Prior PCIDate Prior CABG Prior CABGDate Surgery No Yes 09/17/2012 Yes 09/17/2006 Cerebrovascular Peripheral Artery Chronic Lung Diabetes Disease Disease Disease Yes No No No History: Stress Tests Stress or Imaging Studies Performed No History: Other Disease Selection Items CAD HTN History: Other Current Smoker Method Quit Packs a Day Years Used Pack Years No Cigarettes 56 Years Ago 1 4 4 Labs Hgb (g/dl) Hct (%) WBC (l/cumm) Platelets (thousands) 12.00-18.00 37.00-55.00 4.80-10.80 140.00-450.00 11.0 33 8.8 213 Glucose (mg/dl) BUN (mg/dl) Creatinine (mg/dl) BUN:Creatinine (1:x) 60.00-110.00 8.00-20.00 0.10-9.00 10.00-20.00 125 27 1.6 16.9 Na (meq/l) K (meq/l) 138.00-146.00 3.80-5.10 140 4.1 Troponin I (ng/ml) CPK-MB (ng/ML) 0.40-2.30 0.00-7.00 0.03 Not Drawn Medication Medication Total Dose (Bolus/Oral) Medication Total Dosage/Unit 1% XYLOCAINE 20 mL FENTANYL 75 mcg VERSED 3 mg Medications (Bolus/Oral) Medication Time Given Dosage/Unit Administered By Reason VERSED 02/06/2017 2:13:42 PM 2 mg Mrache, Martha 2 mg VERSED given in lab by Martha Saldivar RN in Right Antecubital via Peripheral IV. Ordered by Dave Barragan. FENTANYL 02/06/2017 2:15:07 PM 50 mcg Mrache, Martha 50 mcg FENTANYL given in lab by Martha Saldivar RN in Right Antecubital via Peripheral IV. Ordered by Dave Chicas. 1% XYLOCAINE 02/06/2017 2:18:40 PM 20 mL Dave Chicas 20 mL 1% XYLOCAINE given in lab by Dave Chicas in Right Groin via Subcutaneous. Ordered by Dave Valdes. VERSED 02/06/2017 2:51:33 PM 1 mg Mrache, Martha 1 mg VERSED given in lab by Martha Saldivar RN via Peripheral IV. Ordered by Dave Chicas. FENTANYL 02/06/2017 3:10:10 PM 25 mcg Mrache, Martha 25 mcg FENTANYL given in lab by Martha Saldivar RN via Peripheral IV. Ordered by Dave Chicas. Medication (Drip) Medication Time Given Dosage/Unit Concentration/Unit Diluent (ml) Solution IV Solutions 02/06/2017 1:49:36 PM 0 mL (IV) 1000 NaCl .9 IV Solutions given in lab by Martha Saldivar RN in Right Antecubital via Peripheral IV. Pump/Drip F low = 20 ml/hr using NaCl .9. Initial Case Assessment Cardiovascular HR NIBP 62 134/74 Edema Present Skin color Skin None Normal Warm Dry Circulatory - Right Pulses Dorsalis Pedis Femoral 1 2 Scale (0,1,2,3,4,d) Circulatory - Left Pulses Dorsalis Pedis Femoral 1 1 Scale (0,1,2,3,4,d) Neurological State Oriented to time-place- Alert Moves all extremities person Respiration - General Respiration Rate SpO2 (%) (B/min) 14 98 Final Case Assessment Cardiovascular HR Rhythm NIBP Chest Pain 60 sr 122/59 0 Edema Present Skin color Skin None Normal Warm Dry Circulatory - Right Pulses Dorsalis Pedis Femoral 1 2 Scale (0,1,2,3,4,d) Circulatory - Left Pulses Dorsalis Pedis Femoral 1 1 Scale (0,1,2,3,4,d) Neurological State Oriented to time-place- Alert Moves all extremities person Respiration - General Respiration Rate SpO2 (%) O2 (lpm) (B/min) 18 99 0 Chronological Log Time Study Chronological Log 13:46:14 Patient arrived via Bed. 13:46:16 Patient Name, D.O.B, / Armband Verified By R.N. 13:46:17 Consent signed by the physician and the patient and verified by the Corporate Associate Attorney staff. 13:46:19 Pre-op and post- op instructions given; patient acknowledges understanding of instructions. 13:47:09 Verbal Stimulation=2 Physical Stimulation=2 Airway=2 Respiration=2 TOTAL=8. (0=absent, 1=li mited, 2=present) 13:47:19 Presedation assessment performed by Corporate Associate Attorney RN. 13:47:21 Patient has been NPO for More than 6Hrs. 13:47:23 Skin Breakdown-none present per patient. 13:49:32 A # 20 IV was noted in the Antecubital (right). Grade = 0 IV Solutions given in lab by Martha Saldivar, RN in Right Antecubital via Peripheral IV. Pump/ Drip Flow = 20 ml/hr 13:49:36 using NaCl .9. 13:49:42 History and physical on the chart or being dictated. Vitals capture started with the following parameters, Patient=Adult, Interval=15 min, Initial P vywfies=685 mmHg, 13:50:56 Deflation Rate=5 mmHg 13:51:16 Reference ECG taken 13:51:23 Reference ECG taken 13:52:01 HR=62 bpm, BVJB=386/74 mmhg, SpO2=96.0 %, Resp=19 B/min, Pain=0, Nasir=10, Yousif=2 Assessment: Initial Case, HR=62 BPM, ZUQG=541/74 mmhg, Edema=None, Color=Normal, Skin = Warm, D ry Right Pulses: Solo Ped=1, Femoral=2 13:52:55 Left Pulses: Solo Ped=1, Femoral=1 Neurological: State=Alert, Ox3, WELLS Respiration: Resp=14 B/min, SpO2=98 % 13:56:37 HR=60 bpm, KJOH=240/65 mmhg, SpO2=98.0 %, Resp=12 B/min, Pain=0, Nasir=10, Yousif=2 14:00:32 Bilateral groins prepped with 2% chlorhexidine, and with a 3 min. waiting time. 14:01:39 HR=57 bpm, XNPZ=247/68 mmhg, SpO2=97.0 %, Resp=17 B/min, Yousif=2 14:02:11 MD paged 14:06:04 Pressure channel 1 zeroed. 14:06:38 HR=60 bpm, MZQU=711/69 mmhg, SpO2=95.0 %, Resp=16 B/min, Yousif=2 14:11:35 HR=58 bpm, XMLA=545/68 mmhg, SpO2=95.0 %, Resp=11 B/min, Yousif=2 14:13:21 MD arrived. 2 mg VERSED given in lab by Martha Saldivar, JORI in Right Antecubital via Peripheral IV. Ordere d by Juan Francisco, 14:13:42 Humayun. 50 mcg FENTANYL given in lab by Martha Saldivar, JORI in Right Antecubital via Peripheral IV. Or dered by Juan Francisco, 14:15:07 Humayun. 14:16:42 HR=66 bpm, IKBS=987/48 mmhg, SpO2=97.0 %, Resp=25 B/min, Yousif=2 Time Out. Correct patient, correct procedure,correct physician, ,power injector loaded with cookie trast with surgical team 14:17:41 present. Time Out Concurred by , individual staff and LOG GETTER in procedure. Loaded by Jose C malik, verified by Elisa castellon. Time Out #2 - Consents verified, patient in correct position, all results are labled and displa yed, safety precautions 14:18:10 taken. Time Out concurred by , individual staff and LOG GETTER in procedure. 14:18:15 Presedation re-assessment performed by Corporate Associate Attorney RN. 14:18:20 Case Start 14:18:22 Verbal Stimulation=2 Physical Stimulation=2 Airway=2 Respiration=2 TOTAL=8. (0=absent, 1=li mited, 2=present) 20 mL 1% XYLOCAINE given in lab by Jamidar, Humayun in Right Groin via Subcutaneous. Ordered by Juan Francisco, 14:18:40 Humayun. 14:21:08 Access site was Right Femoral Artery. 14:21:24 A SHEATH, FR7 TERUMO (10CM) FR 7 was advanced into the Fem Vein (right) using the Percutane ous technique. 14:21:39 HR=60 bpm, FFOL=043/58 mmhg, SpO2=92.0 %, Resp=17 B/min, Yousif=2 14:25:32 Access site was Right Femoral Artery. 14:25:49 A SHEATH, FR4 TERUMO (10CM) FR 4 was advanced into the Fem Art (right) using the Percutaneo us technique. 14:26:26 A SWAN SHAYLA CATHETER FR 7 was inserted via Fem Vein (right) 14:26:34 HR=49 bpm, JWTP=107/60 mmhg, SpO2=92.0 %, Resp=17 B/min, Yousif=2 14:29:42 A WIRE, 3MMJ .025 * was inserted via Fem Art (right). 14:31:35 HR=59 bpm, WGRD=000/60 mmhg, SpO2=88.0 %, Resp=16 B/min, Yousif=2 Recorded Pressure: PCW, HR=59, Condition=Condition 1 14:33:11 (Pulmonary Capillary Wedge) PCW 21/20/15 Recorded Pressure: MPA, HR=57, Condition=Condition 1 14:33:36 (Main Pulmonary Artery) MPA 43/13/28 14:36:40 HR=56 bpm, SJUP=207/57 mmhg, SpO2=89.0 %, Resp=19 B/min, Yousif=2 14:41:35 HR=57 bpm, BTUQ=488/62 mmhg, SpO2=89.0 %, Resp=18 B/min, Yousif=2 14:46:38 HR=58 bpm, RGWP=695/68 mmhg, SpO2=87.0 %, Resp=17 B/min, Yousif=2 A 3DRC INFINITI CATHETER FR 4 was advanced over a wire. OMNIPAQUE, 350 MG, 150ML 150ML was used for 14:47:16 injections. 14:48:17 The RCA was injected and visualized at various angles. OMNIPAQUE, 350 MG, 150ML 150ML used . 14:49:28 Catheter was removed Thermo CO: CO=3.9 l/m, HR=61 bpm, Condition=Condition 1. Used in calculation. 14:49:57 Equipment: Description and Size=SWAN SHAYLA CATHETER FR 7, Type=Bath Probe, CC=0.579 Injectant: Temp=19.0 - 22.0 Celsius, Volume=10.0 ml Thermo CO: CO=4.4 l/m, HR=60 bpm, Condition=Condition 1. Used in calculation. 14:50:32 Equipment: Description and Size=SWAN SHAYLA CATHETER FR 7, Type=Bath Probe, CC=0.579 Injectant: Temp=19.0 - 22.0 Celsius, Volume=10.0 ml 14:51:33 1 mg VERSED given in lab by Martha Saldivar, JORI via Peripheral IV. Ordered by Josias Chicas. Thermo CO: CO=4.9 l/m, HR=58 bpm, Condition=Condition 1. Used in calculation. 14:51:33 Equipment: Description and Size=SWAN SHAYLA CATHETER FR 7, Type=Bath Probe, CC=0.579 Injectant: Temp=19.0 - 22.0 Celsius, Volume=10.0 ml 14:51:39 HR=60 bpm, ASJB=364/59 mmhg, SpO2=95.0 %, Resp=18 B/min, Yousif=2 Recorded Pressure: RV, HR=66, Condition=Condition 1 14:52:43 (Right Ventricle) RV 48/8/15 Recorded Pressure: RA, HR=64, Condition=Condition 1 14:53:02 (Right Atrium) RA 14:53:32 SWAN Catheter was removed 14:54:47 A IM INFINITI CATHETER FR 4 was advanced over a wire. OMNIPAQUE, 350 MG, 150ML 150ML was us ed for injections. 14:56:40 HR=57 bpm, ISTH=246/65 mmhg, SpO2=95.0 %, Resp=16 B/min, Yousif=2 14:56:47 The ANDERSEN-LAD was injected and visualized at various angles. OMNIPAQUE, 350 MG, 150ML 150ML used. 14:58:06 Catheter was removed 14:58:08 A LCB INFINITI FR 4 was advanced over a wire. OMNIPAQUE, 350 MG, 150ML 150ML was used for i njections. 14:59:43 The Gft. Stump 1 was injected and visualized at various angles. OMNIPAQUE, 350 MG, 150ML 15 0ML used. 15:00:33 The SVG-RAMUS was injected and visualized at various angles. OMNIPAQUE, 350 MG, 150ML 150ML used. 15:01:37 HR=55 bpm, WUZM=335/62 mmhg, SpO2=97.0 %, Resp=18 B/min, Yousif=2 15:03:37 Catheter was removed A AL 1 INFINITI CATHETER FR 4 was advanced over a wire. OMNIPAQUE, 350 MG, 150ML 150ML was used for 15:03:39 injections. Recorded Pressure: LV, HR=60, Condition=Condition 1 15:04:58 (Left Ventricle) LV 143/7/21 15:05:19 The LV was manually injected with 10 cc's and visualized. OMNIPAQUE, 350 MG, 150ML 150ML us ed. 15:06:40 HR=54 bpm, FXJY=467/60 mmhg, SpO2=95.0 %, Resp=15 B/min, Yousif=2 15:07:09 A WIRE, EXCHANGE 260CM 3MMJ 260CM was inserted via Fem Art (right). After removing the current catheter a PIGTAIL ANG. INFINITI CATHETER FR 4 was advanced over a W WESLEY, EXCHANGE 15:07:41 260CM 3MMJ 260CM. Recorded Pressure: LV, HR=54, Condition=Condition 1 15:09:15 (Left Ventricle) LV 141/10/22 15:09:44 The LV was injected at 10 cc/sec for a total of 20. OMNIPAQUE, 350 MG, 150ML 150ML used. 15:10:10 25 mcg FENTANYL given in lab by Martha Saldivar RN via Peripheral IV. Ordered by Dave Chicas. 15:11:41 HR=53 bpm, DYHY=256/59 mmhg, SpO2=96.0 %, Resp=15 B/min, Yousif=2 Recorded Pressure: LV, Ao, HR=54, Condition=Condition 1 15:11:53 (Left Ventricle) LV 139/7/22, (Aorta) Ao 117/40/69 15:12:57 Catheter was removed Assessment: Final Case, HR=60 BPM, Rhythm=sr, TBYY=870/59 mmhg, Chest Pain=0, Edema=None, Color =Normal, Skin = Warm, Dry Right Pulses: Solo Ped=1, Femoral=2 15:13:11 Left Pulses: Solo Ped=1, Femoral=1 Neurological: State=Alert, Ox3, WELLS Respiration: Resp=18 B/min, SpO2=99 %, O2=0 lpm 15:14:44 Sheath removed; pressure applied to access site. By Elisa Castellon. 15:15:10 Case End 15:15:12 No case complications noted. 15:15:19 Saturation: Site=FA (Femoral Artery) , O2=93.9 %, Hgb=11 gm/dl, Condition=Condition 1. Use d in calculation. 15:15:32 Saturation: Site=PA (Pulmonary Artery) , O2=64.1 %, Hgb=11 gm/dl, Condition=Condition 1. U sed in calculation. 15:15:45 Saturation: Site=RA (Right Atrium) , O2=71.4 %, Hgb=11 gm/dl, Condition=Condition 1. Used in calculation. 15:17:09 HR=54 bpm, MUWY=580/74 mmhg, SpO2=97.0 %, Resp=17 B/min, Yousif=2 15:21:39 HR=53 bpm, UQBE=523/101 mmhg, SpO2=97.0 %, Resp=14 B/min, Yousif=2 15:26:44 HR=60 bpm, NYEJ=742/70 mmhg, SpO2=99.0 %, Resp=27 B/min, Yousif=2 15:28:34 Sterile dressing applied to site 15:29:30 Vitals capture stopped. End Study - Contrast Media Used In Study Contrast Total Opened (mL) Total Used (mL) Total Wasted (mL) Omnipaque 90 90 0 End Study - Maximum Contrast Load Max Contrast Load (mL) 262.8 End Study - Radiation Exposure Fluoro Time (minutes) 12.6 End Study - Patient Disposition Complications Transferred To Telemetry Bed
[2017-02-06] MEDS ORDERED: IOHEXOL 350 MG/ML 100 ML BTL (for Cath Lab) OTHER ONE (16:36)
[2017-02-06] MEDS: ENOXAPARIN SODIUM 30 MG/0.3 ML SYRINGE SQ SCH (17:17)
--- NOTE | 2017-02-06 17:45 | MP ---
cc: DAVE CHICAS MD DATE OF SURGERY 02/05/17 INDICATIONS FOR CATHETERIZATION 1. Presumed severe aortic stenosis (found not to be severe) 2. Congestive heart failure 3. Severe three-vessel coronary artery disease. BRIEF HISTORY This is a very pleasant 76-year-old white male who presents with congestive heart failure, known significant . However, the patient had had a heart cath in 2014 that showed a small gradient across the aortic valve and had a heart cath as well in 2013 which had similar results. CONSENT Full informed consent was obtained prior to procedure. Risks of , stroke, heart attacks, renal failure, foreseen and unforeseen complications are reviewed. The patient fully appeared to the understand the risks. PROCEDURE IN DETAIL 1 Bilateral coronaries 2 ANDERSEN 3 SVG 4 Sedation 5 LV gram 6 The patient draped and prepped in the usual manner. Right femoral artery and vein were entered using a micropuncture technique with ultrasound via the venous sheath. A full right heart catheterization was performed. Via the arterial sheath, left and right coronary catheter were used to intubate the left and right coronaries. An IM catheter to the internal mammary artery. LCB catheter to the vein graft to the right and the vein graft to the intermediate ramus. Multiple angiographic views were carried out. An AL catheter was used to intubate the LV. An LV gram was performed. At the end of the procedure, all catheters and sheaths removed. Manual pressure was applied until hemostasis was achieved. The patient transferred to recovery in stable condition. FINDINGS HEMODYNAMIC RESULTS The wedge pressure is 21/20 with mean of 15. The main pulmonary artery pressure is 42/13, mean of 28. RV pressure of 48 with a right ventricular end-diastolic pressure of 15, RA pressure was 15/13 mean of 10. The LV pressure 139 with a left ventricular end-diastolic pressure of 22, aortic pressure was 117/40 with a mean of 69. The aortic valve gradient was 22 mm. The cardiac output was estimated at 4.4 liters per minute. The Janeth cardiac output was 5.5 meters per minute. The aortic valve area was calculated at 0.97 by thermodilution and 1.21 x 1.21 cm2 by Janeth. CONCLUSION 1. Mild to at most moderate aortic stenosis by heart cath. 2. Ejection fraction reduced at about 40%. 3. Severe three-vessel coronary artery disease as explained above. Occluded vein graft to the right coronary with evidence of prior embolization of the vein graft to the right coronary. Evidence of stent placement to the right coronary which is widely patent. Evidence of an intermediate ramus vein graft with a 90% stenosis. However, very poor distal vessels. Overall felt to be small vessels. The right coronary artery was a large vessel, had some diffuse disease throughout this vessel of 25-40%. The posterior descending artery was tortuous. The posterolateral branch had evidence of a previously placed vein graft with evidence of embolization of this vein graft in its mid section. The left internal mammary artery was a large vessel. It ended up being a medium-sized LAD with a good anastomosis. PLAN We will plan to treat the patient medically for now. The patient is not a TAVR candidate as his aortic valve gradient is not that bad as noted above. We will continue medical management. The cad is diffuse and his prognosis is guarded. Discussed prognosis with daughter in detail. Dave Chicas MD, FRCP,[facility] [place]/ /3:28 PM /5:22 PM DARIUS
--- NOTE | 2017-02-06 20:08 | EKG ---
Date Performed: 02/06/2017 Time Performed: 11:08:24 PTAGE: 76 years EKG: Sinus bradycardia. Prolonged QT interval LVH with secondary repolarization abnormality Exte nsive ST-T changes are probably due to ventricular hypertrophy Abnormal ECG PREVIOUS TRACING : 02/05/2017 10.11 Compared to prior tracing no significant change DOCTOR: Anastasiia [place] Interpretating Date/Time 02/06/2017 20:06:28
[2017-02-07] VITALS (20 sets, daily range): BP systolic 128–140; BP diastolic 56–80; PULSE 50–62; RESP 16–18; TEMP 97.5–98.1; O2SAT 95–97
[2017-02-07] MEDS: FUROSEMIDE 20 MG/2 ML VIAL IV PUSH SCH (05:00)
[2017-02-07] MEDS: ISOSORBIDE MONONITRATE 30 MG TAB PO SCH (06:13)
[2017-02-07] MEDS: RESP: ALBUTEROL 2.5 MG/IPRATROPIUM 0.5 MG NEB (SCH) NEB ×2 (08:10→13:17)
--- NOTE | 2017-02-07 08:26 | HHI.PR ---
Subjective Remarks Pt tells me that his SOB is much improved especially after the breathing treatments. states that he would like another one prior to discharge later today. denies any CP/palpitations/nausea/vomiting. currently sitting on his recliner Objective Vitals Vital Signs Date Time Temp Pulse Resp B/P Pulse Ox O2 Delivery O2 Flow Rate FiO2 02/07/17 07:00 97.5 53 18 132/56 95 02/07/17 07:00 53 02/07/17 06:03 52 02/07/17 05:43 50 02/07/17 04:00 57 02/07/17 03:51 98.1 54 16 128/72 97 02/07/17 03:14 55 02/07/17 02:10 51 02/07/17 01:14 53 02/07/17 00:20 52 02/06/17 23:42 57 02/06/17 23:42 98.0 53 16 136/69 94 02/06/17 22:00 62 02/06/17 21:00 58 02/06/17 20:44 98 21 02/06/17 20:15 57 02/06/17 19:00 57 02/06/17 19:00 97.8 57 18 128/56 95 02/06/17 18:40 65 02/06/17 17:54 88 02/06/17 16:00 55 02/06/17 15:57 98.2 60 18 107/54 95 02/06/17 13:09 97 Nasal Cannula 2.00 02/06/17 13:00 58 02/06/17 12:00 64 02/06/17 11:00 58 02/06/17 11:00 97.8 58 18 107/58 94 02/06/17 10:00 70 02/06/17 09:00 58 I/O 02/06/17 02/06/17 02/06/17 02/07/17 02/07/17 02/07/17 07:00 15:00 23:00 07:00 15:00 23:00 Intake Total 240 ml 1550 ml 1480 ml Output Total 450 ml 550 ml 400 ml Balance -210 ml 1000 ml 1080 ml Intake Oral 240 ml 550 ml 480 ml IV Total 1000 ml 1000 ml Output Urine Total 450 ml 550 ml 400 ml # Bowel Movements 1 0 Result Diagram: 02/06/17 0453 02/06/17 0453 Imaging Last Impressions Chest X-Ray 02/06/17 0851 Signed Impressions: Service Date/Time: Monday, February 06, 2017 08:55 - CONCLUSION: 1. Mild cardiomegaly. 2. Significant improvement in bilateral airspace disease. Minimal residual disease in the lingula. Freddy Harrison MD Lung Scan-VQ Nuclear Medicine 02/05/17 0000 Signed Impressions: Service Date/Time: Sunday, February 05, 2017 13:04 - CONCLUSION: Low probability for pulmonary embolism. Beto Terrazas MD Abdomen Ultrasound 02/05/17 0000 Signed Impressions: Service Date/Time: Sunday, February 05, 2017 16:06 - CONCLUSION: No significant ascites Dain Chase MD Objective Remarks GENERAL: NAD, A&Ox3 SKIN: Warm and dry. NECK: Supple, trachea midline. No JVD or lymphadenopathy. CARDIOVASCULAR: RRR. 3/6 Systolic murmur, best appreciated at the FELICIANO border. RESPIRATORY: Breath sounds equal bilaterally. No accessory muscle use. no rales noted this morning. GASTROINTESTINAL: Abdomen non-tender. some Abdominal distention noted but soft w no rebound or guarding. MUSCULOSKELETAL: No cyanosis. No edema of lower extremities. A/P Problem List: (1) Congestive heart failure ICD Code: I50.9 Status: Acute (2) Abdominal distention ICD Code: R14.0 Status: Acute (3) Aortic stenosis ICD Code: I35.0 Status: Acute (4) CAD (coronary artery disease) ICD Code: I25.10 Status: Acute (5) Pulmonary edema ICD Code: J81.1 Status: Acute (6) Old OR (myocardial infarction) ICD Code: I25.2 Status: Acute (7) CHF exacerbation ICD Code: I50.9 Status: Acute (8) Systolic and diastolic CHF, acute on chronic ICD Code: I50.43 Status: Acute (9) Hx of CABG ICD Code: Z95.1 Status: Acute Assessment and Plan 76-year-old male with chronic congestive heart failure and aortic stenosis. Diastolic and systolic CHF with acute exacerbation on chronic state Aortic stenosis Mitral valve regurg Pulmonary edema Possible ascites - Diuresis may benefit but will need to occur cautiously given his aortic stenosis.on Lasix 10 mg IV every 6 hours. switching to po lasix same dosage and added kcl 20mEq daily po -Follow on telemetry -on q6 SANJIV duoneb. Cont q2 PRN duoneb. -Continue home dose of metoprolol -BNP in the 600s -CXR shows ? interstitial pulmonary edema. Repeat showing significant improvement 02/06/17. -Abdominal u/s shows no significant Ascites. 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 Uncertain baseline. May have CKD. -Light diuresis, as above -daily BMP Hyperglycemia -likely stress RXN. Blood glucose in the 200s on admission. Have since normalized. -DC accucheks + ssi. Change to heart healthy diet. Benign prostatic hypertrophy -Continue Proscar Hypertension -appears well controlled -continue amlodipine Hyperlipidemia -Continue statin DVT prophylaxis -Lovenox Discharge Planning anticipate d/c later today or tomorrow. Problem Qualifiers (1) Congestive heart failure: Qualified Code: I50.9 - Acute on chronic congestive heart failure, unspecified congestive heart failure type Sharmaine Childers MD February 07, 2017 08:25
[2017-02-07] MEDS: CLOPIDOGREL 75 MG TAB PO SCH (08:45)
[2017-02-07] MEDS: FINASTERIDE 5 MG TAB PO SCH (08:45)
[2017-02-07] MEDS: METOPROLOL TARTRATE 100 MG TAB PO SCH (08:45)
[2017-02-07] MEDS: ASPIRIN EC 81 MG TABEC PO SCH (08:45)
[2017-02-07] MEDS: ATORVASTATIN 20 MG TAB PO SCH (08:45)
[2017-02-07] MEDS: RANOLAZINE 500 MG EXTENDED RELEASE TAB PO SCH (08:45)
[2017-02-07] MEDS: SODIUM CHLORIDE 0.9% FLUSH 10 ML FLUSH IV FLUSH SCH ×2 (08:49→12:00)
[2017-02-07] MEDS ORDERED: POTASSIUM CHLORIDE 20 MEQ CONTROLLED RELEASE TAB PO SCH (09:00)
[2017-02-07] MEDS ORDERED: FUROSEMIDE 20 MG TAB PO SCH (12:00)
--- NOTE | 2017-02-07 15:15 | PD.CARD.PN ---
Subjective Subjective Remarks Not sob, feels much better and wants to go home. Objective Medications Administered Medications Medications (Trade) Dose Ordered Sig/[place] Route PRN Reason Start Time Stop Time Status Last Admin Dose Admin Sodium Chloride (NS Flush) 2 ml UNSCH PRN IV FLUSH FLUSH AFTER USING IV ACCESS 02/05/17 12:15 02/05/17 17:00 Sodium Chloride (NS Flush) 2 ml BID IV FLUSH 02/05/17 21:00 02/07/17 12:00 Ondansetron HCl (Zofran Inj) 4 mg Q6H PRN IVP NAUSEA OR VOMITING 02/05/17 12:15 02/06/17 08:43 Enoxaparin Sodium (Lovenox Inj) 30 mg Q24H SQ 02/05/17 17:00 02/06/17 17:17 Amlodipine Besylate (Norvasc) 10 mg DAILY PO 02/06/17 09:00 02/07/17 08:44 Aspirin (Ecotrin Ec) 81 mg DAILY PO 02/06/17 09:00 02/07/17 08:45 Clopidogrel Bisulfate (Plavix) 75 mg DAILY PO 02/06/17 09:00 02/07/17 08:45 Finasteride (Proscar) 5 mg DAILY PO 02/06/17 09:00 02/07/17 08:45 Isosorbide Mononitrate (Imdur) 30 mg DAILY@07 PO 02/06/17 07:00 02/07/17 06:13 Metoprolol Tartrate (Lopressor) 100 mg BID PO 02/05/17 21:00 02/07/17 08:45 Ranolazine (Ranexa) 500 mg BID PO 02/05/17 21:00 02/07/17 08:45 Atorvastatin Calcium 20 mg 20 mg DAILY PO 02/06/17 09:00 02/07/17 08:45 Sodium Chloride (NS 1000 ml Inj) 1,000 ml @ 30 mls/hr Q24H IV 02/06/17 11:00 02/11/17 10:59 02/06/17 11:00 Furosemide (Lasix) 20 mg Q6HR PO 02/07/17 12:00 02/07/17 12:00 Potassium Chloride (KCl) 20 meq DAILY PO 02/07/17 09:00 02/07/17 09:32 Vital Signs / I&O Vital Signs Date Time Temp Pulse Resp B/P Pulse Ox O2 Delivery O2 Flow Rate FiO2 02/07/17 13:00 60 02/07/17 12:00 54 02/07/17 11:00 98.0 55 18 128/70 95 02/07/17 11:00 55 02/07/17 10:02 54 02/07/17 09:00 55 02/07/17 08:10 96 02/07/17 08:00 52 02/07/17 07:00 97.5 53 18 132/56 95 02/07/17 07:00 53 02/07/17 06:03 52 02/07/17 05:43 50 02/07/17 04:00 57 02/07/17 03:51 98.1 54 16 128/72 97 02/07/17 03:14 55 02/07/17 02:10 51 02/07/17 01:14 53 02/07/17 00:20 52 02/06/17 23:42 57 02/06/17 23:42 98.0 53 16 136/69 94 02/06/17 22:00 62 02/06/17 21:00 58 02/06/17 20:44 98 21 02/06/17 20:15 57 02/06/17 19:00 57 02/06/17 19:00 97.8 57 18 128/56 95 02/06/17 18:40 65 02/06/17 17:54 88 02/06/17 16:00 55 02/06/17 15:57 98.2 60 18 107/54 95 I/O 02/06/17 02/06/17 02/06/17 02/07/17 02/07/17 02/07/17 07:00 15:00 23:00 07:00 15:00 23:00 Intake Total 240 ml 1550 ml 1480 ml Output Total 450 ml 550 ml 400 ml Balance -210 ml 1000 ml 1080 ml Intake Oral 240 ml 550 ml 480 ml IV Total 1000 ml 1000 ml Output Urine Total 450 ml 550 ml 400 ml # Bowel Movements 1 0 Physical Exam GENERAL: Well-nourished, well-developed patient in no apparent distress. SKIN: Warm and dry. NECK: JVD normal - less than or equal to 5 cm H20. CARDIOVASCULAR: Regular rate and rhythm without murmurs, gallops or rubs. RESPIRATORY: Normal breath sounds - equal bilaterally. No accessory muscle use. No wheezes, rales or rubs. PERIPHERY: No cyanosis or edema. 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 Wound site is Ok Imaging Laboratory Tests Test 02/05/17 02/06/17 10:10 04:53 Red Blood Count 4.18 MIL/MM3 3.96 MIL/MM3 (4.50-5.90) (4.50-5.90) Hemoglobin 12.5 GM/DL 11.6 GM/DL (13.0-17.0) (13.0-17.0) Hematocrit 35.8 % 33.8 % (39.0-51.0) (39.0-51.0) Neutrophils (%) (Auto) 75.6 % (16.0-70.0) Basophils (%) (Auto) 2.3 % (0.0-2.0) D-Dimer Quantitative (PE/DVT) 0.75 MG/L FEU (0.00-0.50) Blood Urea Nitrogen 29 MG/DL (7-18) 27 MG/DL (7-18) Creatinine 1.60 MG/DL 1.65 MG/DL (0.60-1.30) (0.60-1.30) Estimat Glomerular Filtration 42 ML/MIN (>89) 41 ML/MIN (>89) Rate Random Glucose 210 MG/DL 125 MG/DL (74-106) (74-106) B-Type Natriuretic Peptide 665 PG/ML (0-100) Monocytes (%) (Auto) 9.5 % (0.0-8.0) Total Bilirubin 1.1 MG/DL (0.2-1.0) Assessment and Plan Assessment and Plan Much better chf/copd d/c on diuretic and inhaled beta agonist Will see in office in one to 2 weeks. Discussed Condition With RN and patient Dave Chicas MD February 07, 2017 15:15
[2017-02-07] MEDS ORDERED: ALBUAER3 INH (15:32)
[2017-02-07] MEDS ORDERED: POTA20TA5 PO (15:32)
[2017-02-07] MEDS ORDERED: FURO20TA PO (15:32)
--- NOTE | 2017-02-07 15:35 | HHI.DS ---
Discharge Summary Admission Date February 05, 2017 at 12:04 Discharge Date: February 07, 2017 Admitting Diagnosis congestive heart failure, valvular disease (1) Abdominal distention ICD Code: R14.0 Diagnosis: Principal (2) Aortic stenosis ICD Code: I35.0 Diagnosis: Principal (3) CAD (coronary artery disease) ICD Code: I25.10 Diagnosis: Secondary (4) Pulmonary edema ICD Code: J81.1 Diagnosis: Principal (5) Old ID (myocardial infarction) ICD Code: I25.2 Diagnosis: Secondary (6) CHF exacerbation ICD Code: I50.9 Diagnosis: Principal (7) Systolic and diastolic CHF, acute on chronic ICD Code: I50.43 Diagnosis: Principal (8) Hx of CABG ICD Code: Z95.1 Diagnosis: Secondary Procedures cardiac cath Brief History - From Admission Mr. Roland is a 76-year-old male. He is here with 3 days of increasing shortness of breath. She also notes that his abdomen feels like it's becoming more distended. He feels this might be affecting his breathing. Symptoms are worse when he lays flat. He feels he has been having difficulty sleeping by not being else of breathe. She has not had a cough but reports that his daughter is home sick with bronchitis. She was on a car trip to [place] which lasted 2 days. No complaints of bilateral leg pain or swelling. Past medical history includes CHF, old ID, CABG 3, coronary stents, coronary artery disease , aortic stenosis, and mitral valve regurgitation. She is not a smoker and only drinks occasionally. No chest pain reported. No syncope or presyncope. 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 CBC/BMP: 02/06/17 0453 02/06/17 0453 Significant Findings Laboratory Tests Test 02/05/17 02/06/17 10:10 04:53 Red Blood Count 4.18 MIL/MM3 3.96 MIL/MM3 (4.50-5.90) (4.50-5.90) Hemoglobin 12.5 GM/DL 11.6 GM/DL (13.0-17.0) (13.0-17.0) Hematocrit 35.8 % 33.8 % (39.0-51.0) (39.0-51.0) Neutrophils (%) (Auto) 75.6 % (16.0-70.0) Basophils (%) (Auto) 2.3 % (0.0-2.0) D-Dimer Quantitative (PE/DVT) 0.75 MG/L FEU (0.00-0.50) Blood Urea Nitrogen 29 MG/DL (7-18) 27 MG/DL (7-18) Creatinine 1.60 MG/DL 1.65 MG/DL (0.60-1.30) (0.60-1.30) Estimat Glomerular Filtration 42 ML/MIN (>89) 41 ML/MIN (>89) Rate Random Glucose 210 MG/DL 125 MG/DL (74-106) (74-106) B-Type Natriuretic Peptide 665 PG/ML (0-100) Monocytes (%) (Auto) 9.5 % (0.0-8.0) Total Bilirubin 1.1 MG/DL (0.2-1.0) Imaging Last Impressions Chest X-Ray 02/06/17 0851 Signed Impressions: Service Date/Time: Monday, February 06, 2017 08:55 - CONCLUSION: 1. Mild cardiomegaly. 2. Significant improvement in bilateral airspace disease. Minimal residual disease in the lingula. Freddy Harrison MD Lung Scan-V Nuclear Medicine 02/05/17 0000 Signed Impressions: Service Date/Time: Sunday, February 05, 2017 13:04 - CONCLUSION: Low probability for pulmonary embolism. Beto Terrazas MD Abdomen Ultrasound 02/05/17 0000 Signed Impressions: Service Date/Time: Sunday, February 05, 2017 16:06 - CONCLUSION: No significant ascites Dain Chase MD PE at Discharge GENERAL: NAD, A&Ox3 SKIN: Warm and dry. NECK: Supple, trachea midline. No JVD or lymphadenopathy. CARDIOVASCULAR: RRR. 3/6 Systolic murmur, best appreciated at the FELICIANO border. RESPIRATORY: Breath sounds equal bilaterally. No accessory muscle use. no rales noted this morning. GASTROINTESTINAL: Abdomen non-tender. some Abdominal distention noted but soft w no rebound or guarding. MUSCULOSKELETAL: No cyanosis. No edema of lower extremities. Hospital Course 76-year-old male with chronic congestive heart failure and aortic stenosis. Diastolic and systolic CHF with acute exacerbation on chronic state Aortic stenosis Mitral valve regurg Pulmonary edema Possible ascites pt admitted for acute on chronic CHF. he responded well to Lasix 10 mg IV every 6 hours. and then discharged on 40mg po lasix w kcl 20mEq daily po. Cards evaluated the pt, s/p cardiac cath, and recommended medical management at this time as pt not a candidate for TAVR - albuterol inhaler script also given to pt. -Abdominal u/s shows no significant Ascites. -VQ scan low probability of PE Coronary artery disease History of coronary stents History of CABG 3 Old myocardial infarction -Continue home medications including aspirin, isosorbide mononitrate, when necessary nitroglycerin -Continue Plavix -Continue Ranexa Acute kidney injury -creatinine stable at 1.6. Uncertain baseline. May have CKD. f/u as an outpatient w PCP Pt Condition on Discharge: Stable Discharge Disposition: Discharge Home Discharge Time: > 30 minutes Discharge Instructions DIET: Follow Instructions for: Heart Healthy Diet Fluid Restrictions: 1500 Activities you can perform: Regular-No Restrictions Follow up Referrals: Cardiology - [address] Chicas New Medications: Albuterol 8.5 GM Inh (Proair Hfa 8.5 GM Inh) 90 Mcg/Act Aer 2 PUFF INH Q4-6H 108 mcg/actuation PRN SHORTNESS OF BREATH #1 Ref 0 INHALER Furosemide (Furosemide) 20 Mg Tab 40 MG PO DAILY #30 TAB Potassium Chloride Microencaps (Potassium Chloride Microencaps) 20 Meq Tab 20 MEQ PO DAILY #30 TAB Continued Medications: Amlodipine (Amlodipine) 10 Mg Tab 10 MG PO DAILY Blood Pressure Management #30 Ref [address] (Aspir-81) 81 Mg Tabdr 81 MG PO DAILY Clopidogrel (Clopidogrel) 75 Mg Tab 75 MG PO DAILY Blood Clot Prevention #30 Ref 0 TAB Finasteride (Proscar) 5 Mg Tab 5 MG PO DAILY Do not crush. Manage Prostate Problems #30 Ref 0 TAB Isosorbide Mononitrate (Isosorbide Mononitrate) 20 Mg Tab 30 MG PO DAILY Take 2 doses 7 hours apart. Prevent Chest Pain #60 Ref 0 TAB Metoprolol Tartrate (Metoprolol Tartrate) 100 Mg Tab 100 MG PO BID #60 Ref 0 TAB Nitroglycerin SL (Nitrostat SL) 0.4 Mg Subl 0.4 MG SL DIRECTED 1 tablet under the tongue as needed for chest pain. Repeat every 5 minutes for a total of 3 DOSES or call 911 if NO relief. PRN CHEST PAIN #100 Ref 0 TAB.SL Ranolazine ER 12 HR (Ranexa ER 12 HR) 500 Mg Tab 500 MG PO BID Chest Pain #60 Ref 0 TAB Rosuvastatin (Rosuvastatin) 10 Mg Tab 10 MG PO DAILY Cholesterol Management Ref 0 TAB Sharmaine Childers MD February 07, 2017 15:35
--- NOTE | 2017-02-23 17:20 | MB ---
cc: RENETTA VELOZ MD DATE OF CONSULTATION 02/23/17 1942 HISTORY OF PRESENT ILLNESS A 76-year-old male, patient of Dr. Chicas, significant history of coronary artery disease with prior coronary artery bypass grafting x3 in [facility] 12 years ago followed by apparent stent nine years ago in [facility] followed since by Dr. Chicas with a history of congestive heart failure, also known aortic stenosis. He has had a prior cath in 2014 and a small gradient across the aortic valve and underwent cath 02/05/2017 with mild to moderate aortic stenosis by heart cath, EF of 40%, severe three-vessel disease, occluded graft to the RCA with evidence of prior embolization of the vein graft to the RCA, evidence of stent placement to the right coronary which was widely patent. The intermediate ramus vein graft had a 90% stenosis, poor distal vessels, overall felt to be small vessels. The PDA had a previously placed vein graft with evidence of embolization in the mid section. The ANDERSEN was a large vessel with a medium size LAD with good anastomosis. It was felt at that time that he was not a candidate for TAVR since gradient was not as bad. He had diffuse coronary disease. Prognosis was guarded. He was maximized on medication and then readmitted. after having significant improvement after the heart cath, he was diuresed for his heart failure. Apparently, has had some noncompliance per his daughter with his medications. He does live with his who apparently has some high anxiety. PAST MEDICAL HISTORY 1. Coronary artery disease, 2. Aortic stenosis, 3. Congestive heart failure 4. History of CVA, 5. Hyperlipidemia, 6. Gout, 7. Hypertension, 8. Had coronary artery bypass graft 12 years ago in [facility] x3. He had a stent placed three years after. 9. He has had a heart cath in 2013, recent heart cath January 2017. 10. He has had abdominal surgery which appears to be some type of colectomy. ALLERGIES No known allergies MEDICATIONS home meds include 1. Proscar 2. Albuterol. 3. Metoprolol 100 b.i.d. 4. Ranexa. 5. Amlodipine 6. Crestor. 7. Lasix 8. Imdur 9. Nitrostat. 10. Aspirin. 11. Plavix 12. Currently on Heparin drip. FAMILY HISTORY Noncontributory. SOCIAL HISTORY Lives with his , admits to drinking wine and vodka occasionally, no tobacco use. REVIEW OF SYSTEMS 12 systems reviewed, Otherwise, unremarkable PHYSICAL EXAMINATION VITAL SIGNS: Blood pressure 140/70, heart rate 64, temperature max 97.8. GENERAL: Patient is awake, alert, no acute distress. HEENT: Head is normocephalic, atraumatic. Pupils equal and reactive. Oral mucosa pink, moist. NECK: Supple. No JVD. CARDIAC: Heart sounds S1-S2, regular rate and rhythm. Positive for grade 2-3/6 systolic murmur best noted at the right upper border. LUNGS: Clear to auscultation. No wheezes, rales or rhonchi. ABDOMEN: Soft, nontender. No masses or organomegaly. EXTREMITIES: No cyanosis, clubbing or edema. SKIN: He has a well-healed mid sternotomy scar and a scar to the right lower and upper medial leg. He has good distal pulses. LABORATORY DATA Hemoglobin 12, hematocrit of 36, white cell count 8.8, platelet count 230. Sodium 138, potassium 4.3, BUN 26, creatinine 1.58. Troponin 0.04, BNP of 687. TSH of 2.6. IMAGING STUDIES He did have a chest x-ray that was unremarkable. CARDIOLOGY STUDIES EKG shows sinus rhythm with some LVH, some T-wave inversion in anterolateral leads. IMPRESSION This is a very pleasant 76-year-old male with history of coronary artery disease, prior coronary bypass grafting 12 years ago with also stent placed after his surgery. moderate aortic stenosis. Echo shows an aortic valve area 0.59, gradient of 21.5. The patient also has some mild to moderate mitral regurgitation. Cardiac films will be reviewed by Dr. Renetta Veloz to evaluate if patient is a candidate for redo coronary artery bypass grafting and to also evaluate his heart cath films and echocardiogram if need for any mitral valve or aortic valve replacement at this time. Further planning as per Dr. Renetta Veloz. Dictated by JOSÉ MANUEL Klein MD TRAVIS Rodas/ /4:27 PM /2:38 PM
== END 2017-02-07 17:20 | disposition home or self-care (01) | DRG 286 ==
LOC: PHED 09:51 → PHEDA 12:04 → PHEDH 16:15 → HCIS 20:49
PROVIDERS: ADMIT Hospitalist; ATTEND Hospitalist
PROC: B2111ZZ Fluoroscopy of Multiple Coronary Arteries using Low Osmolar Contrast (ICD-10-PCS; 2017-02-06)
PROC: B2131ZZ Fluoroscopy of Multiple Coronary Artery Bypass Grafts using Low Osmolar Contrast (ICD-10-PCS; 2017-02-06)
PROC: B2181ZZ Fluoroscopy of Left Internal Mammary Bypass Graft using Low Osmolar Contrast (ICD-10-PCS; 2017-02-06)
PROC: 4A023N6 Measurement of Cardiac Sampling and Pressure, Right Heart, Percutaneous Approach (ICD-10-PCS; principal; 2017-02-06 13:30)
DX: I13.0 Hypertensive heart and chronic kidney disease with heart failure and stage 1 through stage 4 chronic kidney disease, or unspecified chronic kidney disease (principal); I50.43 Acute on chronic combined systolic (congestive) and diastolic (congestive) heart failure; N17.9 Acute kidney failure, unspecified; I25.810 Atherosclerosis of coronary artery bypass graft(s) without angina pectoris; I08.0 Rheumatic disorders of both mitral and aortic valves; I25.10 Atherosclerotic heart disease of native coronary artery without angina pectoris; I25.2 Old myocardial infarction; R14.0 Abdominal distension (gaseous); E78.5 Hyperlipidemia, unspecified; N18.9 Chronic kidney disease, unspecified; N40.0 Benign prostatic hyperplasia without lower urinary tract symptoms; R73.9 Hyperglycemia, unspecified; Z95.1 Presence of aortocoronary bypass graft; Z95.5 Presence of coronary angioplasty implant and graft
CPT/HCPCS: 71010; 76705; 78582; 80053; 82810; 82948; 83880; 84484; 85025; 85379; 93005; 93461; 94640; 94664; 99285; A9540; A9567; C1769; C1893; J1644; J1650; J1940; J2250; J2405; J3010; J7030; Q9967

== ENCOUNTER 2017-02-22 11:27 | Inpatient (IN) | payer MEDICARE ==
[~2017-02-22] VITALS: Ht 170.2 cm; Wt 83.5 kg
[2017-02-22] VITALS (13 sets, daily range): BP systolic 118–179; BP diastolic 63–96; PULSE 40–100; RESP 14–24; TEMP 97.4–97.9; O2SAT 95–98
[~2017-02-22 11:27] MED LIST changes: +ALBUAER3 INH; +AMLO10TA2 PO; +ASPI81TA81 PO; +CLOP75TA PO; +FURO20TA PO; +ISOS20TA PO; -MEDR4PAK3 PO; +NITR0.4S SL; +POTA20TA5 PO; +PROS5TAB PO; +RANO500 PO; +ROSU1TAB6 PO; -VYTO10TA32 PO
--- NOTE | 2017-02-22 11:57 | PD ---
HPI Chief Complaint: Cardiac Complaint Time Seen by Provider: 11:57 Travel History International Travel<30 days: No Contact w/Intl Traveler<30days: No Traveled to known affect area: No History of Present Illness HPI 76-year-old male with a history of CAD, CABG 3, CHF, aortic stenosis presents to the emergency department for evaluation of exertional chest pain and shortness of breath. The patient states that for the past week he's had a soreness in his chest with shortness of breath any time he exerts himself. States that when he goes to bed at night and is sitting still he is symptom- free when he wakes up in the morning and starts moving his symptoms return. States he has been taking nitroglycerin which will alleviate the symptoms for a short time but they will return when the medication is worn off. He states he is not currently experiencing any chest pain or shortness of breath because he is sitting still. He denies any swelling of the extremities, lightheadedness, dizziness, syncope, fever, chills, cough or cold symptoms. He was seen here 2 weeks ago for chest pain and had a heart catheterization by Dr. Chicas, no stents were placed at that time. PCP is Dr. Rosa. No other complaints. PFSH Past Medical History Cardiac Catheterization: Yes Cardiovascular Problems: Yes (CAD, CABG, STENTS, DC, CHF) High Cholesterol: Yes Congestive Heart Failure: Yes ([place]) Cerebrovascular Accident: Yes (CVA) Coronary Artery Disease: Yes Diabetes: No Diminished Hearing: Yes Endocrine: No Gout: Yes Hypertension: Yes Musculoskeletal: No Respiratory: No Myocardial Infarction: Yes (x1) Tetanus Vaccination: Unknown Influenza Vaccination: No Past Surgical History Abdominal Surgery: Yes (twisted bowel repair) Coronary Artery Bypass Graft: Yes (triple bypass) Coronary Stent: Yes (one stent in place) Other Surgery: Yes Social History Alcohol Use: Yes (occas. wine) Tobacco Use: No (hx of cigs ) Substance Use: No Allergies-Medications (Allergen,Severity, Reaction): Coded Allergies: No Known Allergies (Unverified , 02/22/17) Reported Meds & Prescriptions Reported Meds & Active Scripts Active Proair Hfa 8.5 GM Inh (Albuterol Sulfate) 90 Mcg/Act Aer 2 Puff INH Q4-6H PRN 108 mcg/actuation Furosemide 20 Mg Tab 40 Mg PO DAILY Potassium Chloride Microencaps 20 Meq Tab 20 Meq PO DAILY Reported Amlodipine (Amlodipine Besylate) 5 Mg Tab 5 Mg PO DAILY Isosorbide Mononitrate 20 Mg Tab 30 Mg PO DAILY Take 2 doses 7 hours apart. Aspir-81 (Aspirin) 81 Mg Tabdr 81 Mg PO DAILY Nitrostat SL (Nitroglycerin) 0.4 Mg Subl 0.4 Mg SL DIRECTED PRN 1 tablet under the tongue as needed for chest pain. Repeat every 5 minutes for a total of 3 DOSES or call 911 if NO relief. Proscar (Finasteride) 5 Mg Tab 5 Mg PO DAILY Do not crush. Rosuvastatin (Rosuvastatin Calcium) 10 Mg Tab 10 Mg PO DAILY Clopidogrel (Clopidogrel Bisulfate) 75 Mg Tab 75 Mg PO DAILY Metoprolol Tartrate 100 Mg Tab 100 Mg PO BID Ranexa ER 12 HR (Ranolazine) 500 Mg Tab 500 Mg PO BID Review of Systems Except as stated in HPI: all other systems reviewed are Neg Physical Exam Narrative GENERAL: Well-nourished and well-developed pleasant patient in no acute distress who is nontoxic appearing. SKIN: Warm and dry. HEAD: Normocephalic and atraumatic. EYES: No injection, drainage, or hyphema noted. PERRLA. EOMI. ENT: No nasal drainage noted. Oropharynx is clear. NECK: Supple and the trachea is midline. CARDIOVASCULAR: Regular rate and rhythm. RESPIRATORY: Breath sounds are equal bilaterally with no accessory muscle use, wheezing, rhonchi, or crackles. GASTROINTESTINAL: Abdomen is soft, non-tender, and nondistended. MUSCULOSKELETAL: No obvious deformities, swelling, cyanosis, or ecchymosis is present throughout the upper and lower extremities. Patient has full range of motion without any signs of neurovascular compromise. NEUROLOGICAL: Awake, alert, and oriented. Normal speech and gait. Cranial nerves are grossly intact. Data Data Last Documented VS Vital Signs Date Time Temp Pulse Resp B/P Pulse Ox O2 Delivery O2 Flow Rate FiO2 02/22/17 13:38 96 Room Air 02/22/17 13:38 18 02/22/17 11:49 80 02/22/17 11:32 97.5 138/63 Orders Complete Blood Count With Diff (02/22/17 11:56) Comprehensive Metabolic Panel (02/22/17 11:56) B-Type Natriuretic Peptide (02/22/17 11:56) Act Partial Throm Time (Ptt) (02/22/17 11:56) Prothrombin Time / Inr (Pt) (02/22/17 11:56) Magnesium (Mg) (02/22/17 11:56) Ckmb (Isoenzyme) Profile (02/22/17 11:56) Troponin I (02/22/17 11:56) Iv Access Insert/Monitor (02/22/17 11:56) Ecg Monitoring (02/22/17 11:56) Oximetry (02/22/17 11:56) Oxygen Administration (02/22/17 11:56) Chest, Single Ap (02/22/17 11:56) Sodium Chloride 0.9% Flush (Ns Flush) (02/22/17 12:00) Electrocardiogram (02/22/17 12:04) Heparin Infusion [place].Q1H (02/22/17 13:52) Heparin-D5w Inj (Heparin-D5w Inj) (02/22/17 14:00) Act Partial Throm Time (Ptt) (02/22/17 13:52) Cbc No Diff, Includes Plts (02/22/17 13:52) Cbc No Diff, Includes Plts (02/25/17 06:00) Act Partial Throm Time (Ptt) (02/22/17 20:52) Occult Blood (Hemoccult) Stool (02/22/17 13:52) Consult Cardiology (02/22/17 ) Admit Order (Ed Use Only) (02/22/17 14:10) Labs Laboratory Tests Test 02/22/17 02/22/17 12:00 14:02 White Blood Count 9.1 TH/MM3 8.9 TH/MM3 Red Blood Count 4.41 MIL/MM3 4.09 MIL/MM3 Hemoglobin 12.6 GM/DL 11.8 GM/DL Hematocrit 38.0 % 34.9 % Mean Corpuscular Volume 86.3 FL 85.3 FL Mean Corpuscular Hemoglobin 28.7 PG 28.9 PG Mean Corpuscular Hemoglobin 33.2 % 33.9 % Concent Red Cell Distribution Width 14.3 % 14.5 % Platelet Count 228 TH/MM3 223 TH/MM3 Mean Platelet Volume 10.0 FL 9.8 FL Neutrophils (%) (Auto) 76.4 % Lymphocytes (%) (Auto) 13.5 % Monocytes (%) (Auto) 7.5 % Eosinophils (%) (Auto) 2.0 % Basophils (%) (Auto) 0.6 % Neutrophils # (Auto) 6.9 TH/MM3 Lymphocytes # (Auto) 1.2 TH/MM3 Monocytes # (Auto) 0.7 TH/MM3 Eosinophils # (Auto) 0.2 TH/MM3 Basophils # (Auto) 0.1 TH/MM3 CBC Comment DIFF FINAL Differential Comment Prothrombin Time 11.2 SEC Prothromb Time International 1.0 RATIO Ratio Activated Partial 30.1 SEC Thromboplast Time Sodium Level 135 MEQ/L Potassium Level 4.5 MEQ/L Chloride Level 103 MEQ/L Carbon Dioxide Level 21.5 MEQ/L Anion Gap 11 MEQ/L Blood Urea Nitrogen 32 MG/DL Creatinine 1.55 MG/DL Estimat Glomerular Filtration 44 ML/MIN Rate Random Glucose 207 MG/DL Calcium Level 9.1 MG/DL Magnesium Level 2.2 MG/DL Total Bilirubin 0.8 MG/DL Aspartate Amino Transf 15 U/L (AST/SGOT) Alanine Aminotransferase 26 U/L (ALT/SGPT) Alkaline Phosphatase 73 U/L Total Creatine Kinase 73 U/L Troponin I 0.02 NG/ML B-Type Natriuretic Peptide 687 PG/ML Total Protein 7.0 GM/DL Albumin 3.7 GM/DL MDM Medical Decision Making Medical Screen Exam Complete: Yes Emergency Medical Condition: Yes Differential Diagnosis Unstable angina versus DC versus ACS versus CHF exacerbation Narrative Course 76-year-old male presents to the emergency department for evaluation of chest pain and shortness of breath with exertion. Patient is afebrile. He is initially bradycardic with a heart rate of 40 but his heart rate is now 80 beats per minute. Otherwise vital signs within normal limits. Physical examination is essentially unremarkable. He took 2 nitroglycerin at home earlier this morning which alleviated his symptoms. He is currently chest pain- free as his symptoms are exertional. IV access is obtained, labs have been drawn and sent. Patient is placed on cardiac telemetry and pulse oximetry monitoring. The patient was here 2 weeks ago for chest pain and had a heart catheterization which showed mild to moderate aortic stenosis, ejection fraction reduced at about 40%, severe 3 vessel coronary artery disease. At that time they did not place any stents but instead chose to medically manage the patient's coronary artery disease. EKG shows lateral ST changes that are consistent with previous EKGs, no acute ST elevations or depressions. CBC shows anemia with a hemoglobin of 12.6, hematocrit 38.0. CMP shows renal insufficiency with creatinine 1.55, GFR 44, BUN 32. Troponin is 0.02. BNP is 687. Chest x-ray shows cardiomegaly but no acute abnormalities. Patient has remained stable without any complaints. Discussed all findings with the patient and family. Heparin drip was initiated. He will be admitted to medicine service with cardiology consultation. I discussed the case with my attending physician Dr. Luis who is aware of the patients history, physical examination findings, and treatment plan. Physician Communication Physician Communication I spoke with Dr. Juan Francisco bee who agrees with initiation of Heparin and admission to medicine. He requests an echocardiogram be ordered. I spoke with Dr. Vega [facility] who agrees to admit the patient to his service. Diagnosis Primary Impression: Unstable angina Additional Impressions: Congestive heart failure Qualified Code: I50.9 - Acute on chronic congestive heart failure, unspecified congestive heart failure type CAD (coronary artery disease) Qualified Code: I25.10 - Coronary artery disease, angina presence unspecified , unspecified vessel or lesion type, unspecified whether [place] or transplanted heart Demetria Herbert Feb 22, 2017 11:57
[2017-02-22] MEDS ORDERED: AMLO5TAB2 PO (11:58)
[2017-02-22] MEDS ORDERED: SODIUM CHLORIDE 0.9% FLUSH 10 ML FLUSH IVF PRN (12:00)
[2017-02-22 12:14] LABS: AUTOMATED NEUTROPHIL # 6.9 TH/MM3 (1.8-7.7); BASOPHIL # 0.1 TH/MM3 (0-0.2); BASOPHIL % 0.6 % (0.0-2.0); EOSINOPHIL # 0.2 TH/MM3 (0-0.4); HEMO FLAGS DIFF FINAL; LYMPH % 13.5 % (9.0-44.0); LYMPHOCYTE # 1.2 TH/MM3 (1.0-4.8); MEAN CELL VOLUME 86.3 FL (80.0-100.0); MEAN CORPUSCULAR HEMOGLOBIN 28.7 PG (27.0-34.0); MEAN CORPUSCULAR HGB CONC 33.2 % (32.0-36.0); MONO % 7.5 % (0.0-8.0); NEUT % 76.4 % (16.0-70.0); PLATELET COUNT 228 TH/MM3 (150-450); RED BLOOD COUNT 4.41 MIL/MM3 (4.50-5.90); RED CELL DISTRIBUTION WIDTH 14.3 % (11.6-17.2); WHITE BLOOD COUNT 9.1 TH/MM3 (4.0-11.0)
[2017-02-22 12:21] LABS: APTT (PATIENT) 30.1 SEC (24.3-30.1); PROTHROMBIN TIME - PATIENT 11.2 SEC (9.8-11.6)
--- NOTE | 2017-02-22 12:27 | RADRPT ---
EXAM DATE/TIME: 02/22/2017 11:58 [facility] COMPARISON: CHEST SINGLE AP, February 06, 2017, 8:55. INDICATIONS : Chest pain and shortness of breath. MEDICAL HISTORY : Cardiovascular disease. SURGICAL HISTORY : CABG. Coronary artery stent. ENCOUNTER: Initial ACUITY: 2 days PAIN SCORE: 8/10 LOCATION: Center chest FINDINGS: The heart is enlarged. The patient is post median sternotomy. The lungs are clear. The visualized bony structures are grossly intact. CONCLUSION: 1. Post median sternotomy changes and cardiomegaly. Exam is stable compared to previous. Ken Juares MD on February 22, 2017 at 12:25 Board Certified Radiologist. This report was verified electronically.
[2017-02-22 12:35] LABS: ANION GAP 11 MEQ/L (5-15); AST (GOT) 15 U/L (15-37); BICARBONATE 21.5 MEQ/L (21.0-32.0); BLOOD UREA NITROGEN 32 MG/DL (7-18); CHLORIDE 103 MEQ/L (98-107); GLOMERULAR FILTRATION RATE 44 ML/MIN (>89); MAGNESIUM 2.2 MG/DL (1.5-2.5); POTASSIUM 4.5 MEQ/L (3.5-5.1); SODIUM (NA) 135 MEQ/L (136-145)
[2017-02-22 12:36] LABS: ALT (GPT) 26 U/L (12-78)
[2017-02-22 12:40] LABS: ALKALINE PHOSPHATASE 73 U/L (45-117); TOTAL BILIRUBIN ADULT 0.8 MG/DL (0.2-1.0)
[2017-02-22 12:50] LABS: CREATINE KINASE 73 U/L (39-308)
[2017-02-22 14:11] LABS: HEMATOCRIT 34.9 % (39.0-51.0); MEAN CELL VOLUME 85.3 FL (80.0-100.0); MEAN CORPUSCULAR HEMOGLOBIN 28.9 PG (27.0-34.0); MEAN CORPUSCULAR HGB CONC 33.9 % (32.0-36.0); PLATELET COUNT 223 TH/MM3 (150-450); RED BLOOD COUNT 4.09 MIL/MM3 (4.50-5.90); RED CELL DISTRIBUTION WIDTH 14.5 % (11.6-17.2); REVIEW FLAG FINAL; WHITE BLOOD COUNT 8.9 TH/MM3 (4.0-11.0)
[2017-02-22] MEDS ORDERED: ONDANSETRON HCL 4 MG/2 ML VIAL IV PRN (14:15)
[2017-02-22] MEDS ORDERED: SODIUM CHLORIDE 0.9% FLUSH 10 ML FLUSH IV FLUSH PRN (14:15)
[2017-02-22] MEDS ORDERED: ALBUTEROL SULFATE 90 MCG/ACT HFA 18 GM INHALER INH PRN (14:15)
[2017-02-22] MEDS ORDERED: ACETAMINOPHEN 325 MG TAB PO PRN (14:15)
[2017-02-22] MEDS ORDERED: ALPRAZolam 0.25 MG TAB PO PRN (14:15)
[2017-02-22] MEDS ORDERED: NITROGLYCERIN 0.4 MG SL 25 TABS/BTL SL PRN (14:15)
[2017-02-22 14:21] LABS: APTT (PATIENT) 29.2 SEC (24.3-30.1)
[2017-02-22] MEDS: HEPARIN-D5W INJ 250 ML IV SCH (14:29)
[2017-02-22] MEDS ORDERED: MORPHINE SULFATE 4 MG/ML INJ IV PRN (15:15)
[2017-02-22] MEDS ORDERED: PILL SPLITTER OTHER PRN (15:15)
--- NOTE | 2017-02-22 15:53 | HHI.HP ---
HPI Service [facility] Primary Care Physician Non-Staff Admission Diagnosis Unstable Angina, CHF Diagnoses: Chief Complaint: Shortness of breath Travel History International Travel<30 Days: No Contact w/Intl Traveler <30 Da: No Traveled to Known Affected Are: No History of Present Illness 76-year-old male with a medical history significant for coronary artery disease status post CABG, mild to moderate aortic stenosis, congestive heart failure presented to the hospital with complaint of shortness of breath and chest pressure with minimal exertion. Patient and his daughter reports that he can barely walk across the room without getting severely short of breath. He reported associated tightness in his chest. The patient was admitted in the hospital about 2 weeks ago for similar complaint. He underwent a heart catheterization at that time which showed multiple vessel and diffuse CAD. Small vessels. No stents were placed. Patient reports since he was discharged home he was feeling better, and losing some water weight. However his symptoms have been worsening over the past few days. This time he denies increased in lower extremity swelling. I discussed with his daughter at bedside and the patient did not deny that he sometimes does not take his medications as prescribed. Sometimes he does not take them at all. He also seems to minimize his alcohol intake intake behavior. Currently he reports feeling better laying in the bed at rest. Cardiology, Dr. Chicas has been consulted from the emergency room who recommended heparin drip and will consult on the patient. Review of Systems Constitutional: DENIES: Fever, Weight gain, Chills Respiratory: COMPLAINS OF: Shortness of breath, DENIES: Cough Cardiovascular: COMPLAINS OF: Chest pain, Palpitations, DENIES: Syncope, Lower Extremity Edema, Orthopnea Gastrointestinal: DENIES: Nausea, Vomiting Genitourinary: DENIES: Dysuria Except as stated in HPI: all other systems reviewed are Neg Past Family Social History Past Medical History Coronary artery disease status post CABG. Recent heart catheterization shows severe multivessel disease Aortic stenosis CHF History of CVA Hyperlipidemia Gout Hypertension Past Surgical History CABG Abdominal surgery Reported Medications Reported Meds & Active Scripts Active Proair Hfa 8.5 GM Inh (Albuterol Sulfate) 90 Mcg/Act Aer 2 Puff INH Q4-6H PRN 108 mcg/actuation Furosemide 20 Mg Tab 40 Mg PO DAILY Potassium Chloride Microencaps 20 Meq Tab 20 Meq PO DAILY Reported Amlodipine (Amlodipine Besylate) 5 Mg Tab 5 Mg PO DAILY Isosorbide Mononitrate 20 Mg Tab 30 Mg PO DAILY Take 2 doses 7 hours apart. Aspir-81 (Aspirin) 81 Mg Tabdr 81 Mg PO DAILY Nitrostat SL (Nitroglycerin) 0.4 Mg Subl 0.4 Mg SL DIRECTED PRN 1 tablet under the tongue as needed for chest pain. Repeat every 5 minutes for a total of 3 DOSES or call 911 if NO relief. Proscar (Finasteride) 5 Mg Tab 5 Mg PO DAILY Do not crush. Rosuvastatin (Rosuvastatin Calcium) 10 Mg Tab 10 Mg PO DAILY Clopidogrel (Clopidogrel Bisulfate) 75 Mg Tab 75 Mg PO DAILY Metoprolol Tartrate 100 Mg Tab 100 Mg PO BID Ranexa ER 12 HR (Ranolazine) 500 Mg Tab 500 Mg PO BID Allergies: Coded Allergies: No Known Allergies (Unverified , 02/22/17) Family History Reviewed and noncontributory. Social History Patient lives with his . He was not forthcoming with his alcohol intake. Admits to drinking wine and vodka occasionally. He denies tobacco use Physical Exam Vital Signs Vital Signs Date Time Temp Pulse Resp B/P Pulse Ox O2 Delivery O2 Flow Rate FiO2 02/22/17 14:32 71 18 163/79 97 Room Air 02/22/17 13:38 96 Room Air 02/22/17 13:38 18 96 Room Air 02/22/17 11:49 80 20 97 Room Air 02/22/17 11:32 97.5 40 24 138/63 97 Room Air Physical Exam GENERAL: This is a well-nourished, well-developed patient, in no acute distress SKIN: No rashes, ecchymoses or lesions. Cool and dry. HEAD: Atraumatic. Normocephalic. No temporal or scalp tenderness. EYES: Pupils equal round and reactive. Extraocular motions intact. No scleral icterus. No injection or drainage. ENT: Nose without bleeding, purulent drainage or septal hematoma. Throat without erythema, tonsillar hypertrophy or exudate. Uvula midline. Airway patent. NECK: Trachea midline. No JVD or lymphadenopathy. Supple, nontender, no meningeal signs. CARDIOVASCULAR: Normal rate and regular rhythm. There is 3/6 GONSALO murmur best heard at the right upper sternal border. It does radiate to the neck area. RESPIRATORY: Clear to auscultation. Breath sounds equal bilaterally. No wheezes , rales, or rhonchi. GASTROINTESTINAL: Abdomen soft, non-tender, nondistended. No hepato-splenomegaly , or palpable masses. No guarding. MUSCULOSKELETAL: Extremities without clubbing, cyanosis, or edema. No joint tenderness, effusion, or edema noted. No calf tenderness. Negative Homans sign bilaterally. NEUROLOGICAL: Awake and alert. Cranial nerves II through XII intact. Motor and sensory grossly within normal limits. Five out of 5 muscle strength in all muscle groups. Normal speech. Laboratory Laboratory Tests Test 02/22/17 02/22/17 12:00 14:02 White Blood Count 9.1 8.9 Red Blood Count 4.41 4.09 Hemoglobin 12.6 11.8 Hematocrit 38.0 34.9 Mean Corpuscular Volume 86.3 85.3 Mean Corpuscular Hemoglobin 28.7 28.9 Mean Corpuscular Hemoglobin 33.2 33.9 Concent Red Cell Distribution Width 14.3 14.5 Platelet Count 228 223 Mean Platelet Volume 10.0 9.8 Neutrophils (%) (Auto) 76.4 Lymphocytes (%) (Auto) 13.5 Monocytes (%) (Auto) 7.5 Eosinophils (%) (Auto) 2.0 Basophils (%) (Auto) 0.6 Neutrophils # (Auto) 6.9 Lymphocytes # (Auto) 1.2 Monocytes # (Auto) 0.7 Eosinophils # (Auto) 0.2 Basophils # (Auto) 0.1 CBC Comment DIFF FINAL Differential Comment Prothrombin Time 11.2 Prothromb Time International 1.0 Ratio Activated Partial 30.1 29.2 Thromboplast Time Sodium Level 135 Potassium Level 4.5 Chloride Level 103 Carbon Dioxide Level 21.5 Anion Gap 11 Blood Urea Nitrogen 32 Creatinine 1.55 Estimat Glomerular Filtration 44 Rate Random Glucose 207 Calcium Level 9.1 Magnesium Level 2.2 Total Bilirubin 0.8 Aspartate Amino Transf 15 (AST/SGOT) Alanine Aminotransferase 26 (ALT/SGPT) Alkaline Phosphatase 73 Total Creatine Kinase 73 Troponin I 0.02 B-Type Natriuretic Peptide 687 Total Protein 7.0 Albumin 3.7 Result Diagram: 02/22/17 1402 02/22/17 1200 Imaging Last Impressions Chest X-Ray 02/22/17 1156 Signed Impressions: Service Date/Time: , February 22, 2017 11:58 - CONCLUSION: 1. Post median sternotomy changes and cardiomegaly. Exam is stable compared to previous. Ken Juares MD Assessment and Plan Problem List: (1) Systolic and diastolic CHF, acute on chronic ICD Code: I50.43 Status: Acute (2) CAD (coronary artery disease) ICD Code: I25.10 Status: Acute (3) Aortic stenosis ICD Code: I35.0 Status: Acute Assessment and Plan 76-year-old male with acute exacerbation of systolic and diastolic CHF. Patient also has aortic stenosis and multiple vessel coronary artery disease. Probable issues with compliance with medications who presented mainly with shortness of breath on exertion with associated chest tightness. Acute on chronic diastolic and systolic CHF, aortic stenosis: - may be volume dependent vs worsening of his CHF vs ischemia for CAD. He did admit that his swelling have resolved since the last hospitalization. However his BNP is elevated. He is currently stable therefore will defer to cardiology regarding whether or not he will benefit from IV diuretics. - Continue metoprolol, oral Lasix, Ranexa, Imdur Supplemental oxygen as needed 2-D echocardiogram ordered Follow-up cardiology recommendations. Chest pain/Coronary artery disease: Patient with known CAD, multivessel disease. No acute changes on EKG - Currently on heparin drip per cardiology recommendations Continue antiplatelets, isosorbide mononitrate, Ranexa, nitroglycerin as needed - Trend cardiac enzymes and EKG. Morphine as needed for pain Hypertension - Continue amlodipine, metoprolol as above. Hyperlipidemia Continue statin Probable issues with compliance: - Based on discussion with the patient's daughter. He may benefit from home health to help ensure he is taking his medications correctly and adhering to a heart failure regimen. CKD: Renal function stable. Continue to monitor. Avoid nephrotoxins. DVT prophylaxis On heparin drip. Discussed Condition With ER PA, patient and his daughter Kay. Physician Certification 2 Midnight Certification Type: Admission for Inpatient Services Order for Inpatient Services The services are ordered in accordance with Medicare regulations or non- Medicare payer requirements, as applicable. In the case of services not specified as inpatient-only, they are appropriately provided as inpatient services in accordance with the 2-midnight benchmark. Estimated LOS (days): 3 days is the estimated time the patient will need to remain in the hospital, assuming treatment plan goals are met and no additional complications. Post-Hospital Plan: Home Health Problem Qualifiers (1) CAD (coronary artery disease): Qualified Code: I25.10 - Coronary artery disease, angina presence unspecified, unspecified vessel or lesion type, unspecified whether [place] or transplanted heart Cynthia Vega MD Feb 22, 2017 15:52
--- NOTE | 2017-02-22 16:34 | ECHRPT ---
Indication: CONCLUSIONS Mildly dilated left ventricle. Wall thickness is measured at the upper limits of normal. The left ve ntricular systolic function is gdpkdrzg-[id number]-fxucalo reduced with an estimated ejection fraction in the range of 35-40%. No regional wall motion abnormalities are present. The left ventricle is not well visualized. The left atrial size is mildly dilated. Mild thickening of the mitral valve leaflets. Calcification of both mitral valve leaflets. Mild-to-m oderate mitral valve regurgitation. Mild mitral valve stenosis. Mitral valve mean gradient is 3 mmHg. Trileaflet aortic valve. Diffuse calcification of the aortic valve. Moderate to severe aortic valve stenosis. Aortic valve area is 0.59 cm. Aortic valve mean gradient is 21.5 mmHg. The aortic valve gradient i s likely not as high as expected due to reduced cardiac output. Appearance of the valve is suggestive of leilani re stenosis. Structurally normal tricuspid valve. There is trace tricuspid valve regurgitation. Normal estimated pulmonary pressures. BP: 138 / 63 HR: 80 Rhythm: Atrial fibrillation MEASUREMENTS (Male / Female) Normal Values Technical Quality:Fair 2D ECHO LV Diastolic Diameter PLAX 6.1 cm 4.2 - 5.9 / 3.9 - 5.3 cm LV Systolic Diameter PLAX 5.3 cm IVS Diastolic Thickness 1.1 cm 0.6 - 1.0 / 0.6 - 0.9 cm LVPW Diastolic Thickness 1.1 cm 0.6 - 1.0 / 0.6 - 0.9 cm LV Relative Wall Thickness 0.4 LVOT Diameter 1.7 cm LA Systolic Diameter LX 3.9 cm 3.0 - 4.0 / 2.7 - 3.8 cm LV Ejection Fraction MOD 4C 34.7 % LV Cardiac Index MOD 4C 1346.8 cm/minm LV Ejection Fraction 4C AL 40.1 % LV Cardiac Index 4C AL 1657.9 cm/minm M-MODE Aortic Root Diameter MM 2.9 cm AV Cusp Separation MM 1.3 cm DOPPLER AV Peak Velocity 312.0 cm/s AV Peak Gradient 38.9 mmHg AV Mean Gradient 21.5 mmHg AV Velocity Time Integral 70.3 cm AI Peak Velocity 240.0 cm/s AI Peak Gradient 23.0 mmHg AI Pressure Half Time 662.0 ms LVOT Peak Velocity 79.0 cm/s LVOT Peak Gradient 2.5 mmHg LVOT Velocity Time Integral 18.2 cm LVOT Cardiac Index 1686.0 cm/minm AV Area Cont Eq vti 0.6 cm AV Area Cont Eq pk 0.6 cm MV Peak Velocity 146.0 cm/s MV Peak Gradient 8.5 mmHg MV Mean Velocity 73.1 cm/s MV Mean Gradient 3.0 mmHg TV Peak Velocity 189.0 cm/s FINDINGS Left Ventricle Mildly dilated left ventricle. Wall thickness is measured at the upper limits of normal. The left ve ntricular systolic function is khhfmeaj-dr-orxfsso reduced with an estimated ejection fraction in the range of 35-40%. No regional wall motion abnormalities are present. The left ventricle is not well visualized. Right Ventricle Normal right ventricular size and systolic function. Left Atrium The left atrial size is mildly dilated. Right Atrium The right atrial size is normal. Atrial Septum Normal atrial septal thickness without atrial level shunting by limited color doppler interrogation. Aorta The aortic root and proximal ascending aorta are not well visualized. The aortic root and proximal a scending aorta are normal in size on limited imaging. Mitral Valve Mild thickening of the mitral valve leaflets. Calcification of both mitral valve leaflets. Mild-to-m oderate mitral valve regurgitation. Mild mitral valve stenosis. Mitral valve mean gradient is 3 mmHg. Aortic Valve Trileaflet aortic valve. Diffuse calcification of the aortic valve. Moderate to severe aortic valve stenosis. Aortic valve area is 0.59 cm. Aortic valve mean gradient is 21.5 mmHg. The aortic valve gradient i s likely not as high as expected due to reduced cardiac output. Appearance of the valve is suggestive of leilani re stenosis. Tricuspid Valve Structurally normal tricuspid valve. There is trace tricuspid valve regurgitation. Normal estimated pulmonary pressures. Pulmonary Valve The pulmonary valve is not well visualized. Vessels The inferior vena cava is normal in size. Pericardium No pericardial effusion. Girma London MD, FACC (Electronically Signed) Final Date:22 February 2017 16:33
[2017-02-22] MEDS: SODIUM CHLORIDE 0.9% FLUSH 10 ML FLUSH IV FLUSH SCH (21:00)
[2017-02-22 21:04] LABS: APTT (PATIENT) 40.8 SEC (24.3-30.1)
[2017-02-22] MEDS: RANOLAZINE 500 MG EXTENDED RELEASE TAB PO SCH (21:12)
[2017-02-22] MEDS: METOPROLOL TARTRATE 100 MG TAB PO SCH (21:12)
[2017-02-23] VITALS (24 sets, daily range): BP systolic 90–146; BP diastolic 47–76; PULSE 49–68; RESP 14–18; TEMP 97.2–98; O2SAT 95–98
[2017-02-23 05:34] LABS: AUTOMATED NEUTROPHIL # 5.5 TH/MM3 (1.8-7.7); BASOPHIL # 0.1 TH/MM3 (0-0.2); BASOPHIL % 0.7 % (0.0-2.0); EOSINOPHIL # 0.4 TH/MM3 (0-0.4); EOSINOPHIL % 4.7 % (0.0-4.0); HEMATOCRIT 36.4 % (39.0-51.0); HEMO FLAGS DIFF FINAL; LYMPH % 23.7 % (9.0-44.0); LYMPHOCYTE # 2.1 TH/MM3 (1.0-4.8); MEAN CELL VOLUME 85.4 FL (80.0-100.0); MEAN CORPUSCULAR HEMOGLOBIN 28.6 PG (27.0-34.0); MEAN CORPUSCULAR HGB CONC 33.5 % (32.0-36.0); MONO % 8.1 % (0.0-8.0); NEUT % 62.8 % (16.0-70.0); PLATELET COUNT 230 TH/MM3 (150-450); RED BLOOD COUNT 4.26 MIL/MM3 (4.50-5.90); RED CELL DISTRIBUTION WIDTH 14.6 % (11.6-17.2); WHITE BLOOD COUNT 8.8 TH/MM3 (4.0-11.0)
[2017-02-23 05:51] LABS: APTT (PATIENT) 43.5 SEC (24.3-30.1)
[2017-02-23 05:52] LABS: BICARBONATE 24.1 MEQ/L (21.0-32.0); POTASSIUM 4.3 MEQ/L (3.5-5.1)
[2017-02-23] MEDS ORDERED: CLOPIDOGREL 75 MG TAB PO SCH (09:00)
[2017-02-23] MEDS: RANOLAZINE 500 MG EXTENDED RELEASE TAB PO SCH ×2 (10:51→21:38)
[2017-02-23] MEDS: METOPROLOL TARTRATE 100 MG TAB PO SCH ×2 (10:52→21:38)
[2017-02-23] MEDS: FINASTERIDE 5 MG TAB PO SCH (10:52)
[2017-02-23] MEDS: ISOSORBIDE MONONITRATE 20 MG TAB PO SCH (10:52)
[2017-02-23] MEDS: ASPIRIN EC 81 MG TABEC PO SCH (10:52)
[2017-02-23] MEDS: ATORVASTATIN 20 MG TAB PO SCH (10:52)
[2017-02-23] MEDS: POTASSIUM CHLORIDE 20 MEQ CONTROLLED RELEASE TAB PO SCH (10:52)
[2017-02-23] MEDS: FUROSEMIDE 40 MG TAB PO SCH (10:53)
[2017-02-23] MEDS: SODIUM CHLORIDE 0.9% FLUSH 10 ML FLUSH IV FLUSH SCH ×2 (10:55→21:38)
[2017-02-23] MEDS: amLODIPine BESYLATE 5 MG TAB PO SCH (10:55)
--- NOTE | 2017-02-23 12:10 | HHI.PR ---
Subjective Remarks Patient reports he is feeling better today. He ambulated to the bathroom with minimal shortness of breath. Chest pain has completely resolved. Objective Vitals Vital Signs Date Time Temp Pulse Resp B/P Pulse Ox O2 Delivery O2 Flow Rate FiO2 02/23/17 11:00 61 02/23/17 11:00 97.8 61 18 146/69 98 02/23/17 06:00 54 02/23/17 05:00 58 02/23/17 04:00 68 02/23/17 03:00 54 02/23/17 03:00 97.2 55 14 121/52 95 02/23/17 02:00 56 02/23/17 01:00 56 02/23/17 00:00 56 02/22/17 23:00 97.6 58 14 118/67 97 02/22/17 23:00 58 02/22/17 22:00 72 02/22/17 21:00 100 02/22/17 20:00 90 02/22/17 19:00 97.9 89 14 169/89 95 02/22/17 19:00 94 02/22/17 18:00 78 02/22/17 17:30 69 02/22/17 17:15 97.5 69 18 156/96 98 02/22/17 17:03 69 20 179/75 98 Room Air 02/22/17 14:32 71 18 163/79 97 Room Air 02/22/17 13:38 96 Room Air 02/22/17 13:38 18 96 Room Air I/O 02/22/17 02/22/17 02/22/17 02/23/17 02/23/17 02/23/17 07:00 15:00 23:00 07:00 15:00 23:00 Intake Total 580 ml Output Total 725 ml Balance -145 ml Intake Oral 480 ml IV Total 100 ml Output Urine Total 725 ml Result Diagram: 02/23/17 0410 02/23/17 0410 Imaging Last Impressions Chest X-Ray 02/22/17 1156 Signed Impressions: Service Date/Time: February 11:58 - CONCLUSION: 1. Post median sternotomy changes and cardiomegaly. Exam is stable compared to previous. Ken Juares MD Objective Remarks GENERAL: This is a well-nourished, well-developed patient, in no apparent distress. CARDIOVASCULAR: Normal rate and regular rhythm. 3/6 GONSALO murmur best heard at the right upper sternal border. It does radiate to the neck area. RESPIRATORY: Good respiratory efforts. Breath sounds equal and clear to auscultation bilaterally. GASTROINTESTINAL: Abdomen soft, non-tender, non-distended. Normal active bowel sounds MUSCULOSKELETAL: Extremities without cyanosis, or edema. NEURO: Alert & Oriented x4 to person, place, time, situation. Moves all ext x4 PSYCH: Appropriate mood and affect. A/P Problem List: (1) Systolic and diastolic CHF, acute on chronic ICD Code: I50.43 Status: Acute (2) CAD (coronary artery disease) ICD Code: I25.10 Status: Acute (3) Aortic stenosis ICD Code: I35.0 Status: Acute Assessment and Plan 76-year-old male with acute exacerbation of systolic and diastolic CHF. Patient also has aortic stenosis and multiple vessel coronary artery disease. Probable issues with compliance with medications who presented mainly with shortness of breath on exertion with associated chest tightness. Acute on chronic diastolic and systolic CHF, aortic stenosis: - may be volume dependent vs worsening of his CHF vs ischemia for CAD. He did admit that his swelling have resolved since the last hospitalization. However his BNP is elevated on admission. He is currently stable and improving, will defer to cardiology regarding whether or not he will benefit from IV diuretics. - Continue metoprolol, oral Lasix, Ranexa, Imdur Supplemental oxygen as needed Repeat 2-D echocardiogram per analysis lead's read shows LVEF of 35-40%. Moderate to severe aortic stenosis. Follow-up cardiology recommendations. Chest pain/Coronary artery disease: Patient with known CAD, multivessel disease. No acute changes on EKG - Chest pain resolving. Currently on heparin drip per cardiology recommendations Continue antiplatelets, isosorbide mononitrate, Ranexa, nitroglycerin as needed - Trend cardiac enzymes and EKG. Morphine as needed for pain Hypertension - Continue amlodipine, metoprolol as above. Hyperlipidemia Continue statin Probable issues with compliance: - Based on discussion with the patient's daughter. He may benefit from home health to help ensure he is taking his medications correctly and adhering to a heart failure regimen. CKD: Renal function stable. Continue to monitor. Avoid nephrotoxins. DVT prophylaxis On heparin drip. Problem Qualifiers (1) CAD (coronary artery disease): Qualified Code: I25.10 - Coronary artery disease, angina presence unspecified, unspecified vessel or lesion type, unspecified whether [place] or transplanted heart Cynthia Vega MD Feb 23, 2017 12:10
[2017-02-23] MEDS: HEPARIN-D5W INJ 250 ML IV SCH (16:33)
--- NOTE | 2017-02-23 17:55 | EKG ---
Date Performed: 02/22/2017 Time Performed: 12:52:19 PTAGE: 76 years EKG: Sinus rhythm LEFT VENTRICULAR HYPERTROPHY AND ST-T CHANGE ABNORMAL ECG PREVIOUS TRACING : 02/06/2017 11.08 Compared to the previous tracing no PVCs present DOCTOR: Anastasiia Montana Interpretating Date/Time 02/23/2017 17:54:05
--- NOTE | 2017-02-23 17:57 | EKG ---
Date Performed: 02/22/2017 Time Performed: 11:49:20 PTAGE: 76 years EKG: Sinus rhythm WITH FREQUENT VENTRICULAR PREMATURE COMPLEXES IN A BIGEMINAL PATTERN LEFT VENTRICULAR HYPERTROPHY AN D ST-T CHANGE ABNORMAL ECG Compared to the PREVIOUS TRACING PVCs present DOCTOR: Anastasiia Montana Interpretating Date/Time 02/23/2017 17:56:37
--- NOTE | 2017-02-23 19:38 | MB ---
cc: DAVE CHICAS MD,OLVIN Mar MD DATE OF CONSULTATION 02/23/17 Thank you, Dr. Vega, for asking us to see this very pleasant gentleman who recently had a heart catheterization by the undersigned. He presents once again with severe unstable angina with chest pain which has been better on heparin. He underwent heart catheterization by the undersigned about three weeks ago and was known to have significant coronary artery disease. Medical management was attempted, but this unfortunately was not possible to treatment. The patient underwent echocardiography today and was noted to have moderate to severe aortic valve stenosis with an aortic mean gradient of 21, valve area of 0.6. The patient also had evidence of an occluded vein graft to the right coronary and significant right coronary disease and significant disease of the vein graft to a diagonal branch. The left internal mammary to the ANDERSEN was well-preserved. PAST MEDICAL HISTORY 1. coronary artery disease status post bypass 2. Recent heart cath that showed disease. 3. The patient also has aortic stenosis, 4. Congestive heart failure, 5. History of CVA 6. Hyperlipidemia 7. Gout 8. Hypertension. PAST SURGICAL HISTORY 1. Positive bypass surgery 2. Abdominal surgery 3. Recent heart catheterization with significant aortic stenosis. MEDICATIONS Current medications here include 1. Amlodipine. 2. Aspirin 3. Proscar 4. Isosorbide mononitrate 5. Lipitor 6. Furosemide. 7. Potassium chloride. 8. Ranexa. 9. Sodium chloride 10. Metoprolol 11. Albuterol 12. Xanax PHYSICAL EXAMINATION VITAL SIGNS: Pulse was 58, blood pressure 95/54, respirations 18. EYES: Showed no xanthelasma, mouth showed no signs of pallor. miles NECK: No JVD Cardiac: Two heart sounds, no murmurs. CHEST: Clear. ABDOMEN: Soft. No hepatosplenomegaly. EXTREMITIES: Legs reveal no evidence of edema. NEUROLOGIC: Grossly intact. SKIN: Grossly intact. ASSESSMENT/PLAN His recent heart cath showed significant disease. The patient may need bypass surgery to the two branches of the right coronary, possibly the first diagonal and any other vessels as felt by Dr. Veloz. The patient also has at least moderate aortic stenosis which is read as moderate to severe today. At catheter it appeared mild to moderate, but in any case it appears that he would need aortic valve replacement at this time. Dr. Veloz kindly agreed to see this patient. Thank you for asking us to see this very pleasant gentleman. Dave Chicas MD, FRCP,[facility]/SA /6:50 PM /7:25 PM
--- NOTE | 2017-02-23 19:49 | RADRPT ---
EXAM DATE/TIME: 02/23/2017 18:08 [facility] COMPARISON: No previous studies available for comparison. INDICATIONS : Preop cardiac surgery. MEDICAL HISTORY : Myocardial infarction. Congestive heart failure. Hypercholesterolemia. Hearing loss. Cerebrovascular accident. Coronary artery disease. Hypertension. Gout. SURGICAL HISTORY : Coronary artery stent.CABG Bowel repair. Right leg skin graft. ENCOUNTER: Initial ACUITY: 1 day PAIN SCORE: 0/10 LOCATION: Bilateral legs. TECHNIQUE: Venous ultrasound of the left and right leg was performed from the inguinal ligament to the proximal calf. Real-time, color Doppler and spectral tracing, compression and augmentation techniques were us ed. FINDINGS: RIGHT LEG: There is normal compressibility of the deep venous system from the inguinal region to the proximal ca lf. No echogenic clot is seen in the lumen of the common femoral, femoral, popliteal, and posterior tibial veins. There is a normal response of the venous system to proximal and distal augmentation an d respiration. LEFT LEG: There is normal compressibility of the deep venous system from the inguinal region to the proximal ca lf. No echogenic clot is seen in the lumen of the common femoral, femoral, popliteal, and posterior tibial veins. There is a normal response of the venous system to proximal and distal augmentation an d respiration. CONCLUSION: Normal examination. Eugene Rice MD on February 23, 2017 at 19:47 Board Certified Radiologist. This report was verified electronically.
--- NOTE | 2017-02-23 19:50 | RADRPT ---
EXAM DATE/TIME: 02/23/2017 18:19 [facility] COMPARISON: No previous studies available for comparison. INDICATIONS : Preop cardiac surgery. MEDICAL HISTORY : Myocardial infarction. Congestive heart failure. Hypercholesterolemia. Hearing loss. Cerebrovascular accident. Coronary artery disease. Hypertension. Gout. SURGICAL HISTORY : Coronary artery stent. CABG Bowel repair. Right leg skin graft. ENCOUNTER: Initial ACUITY: 1 day PAIN SCORE: 0/10 LOCATION: Bilateral legs. GREATER SAPHENOUS VEIN THIGH: PROXIMAL: Right Non-visualized Left 4 mm MID: Right Non-visualized Left 3 mm DISTAL: Right Non-visualized Left 3 mm CALF: PROXIMAL: Right Non-visualized Left 3 mm MID: Right Non-visualized Left 2 mm DISTAL: Right Non-visualized Left 1 mm FINDINGS: The venous system of the left lower extremity are patent by color Doppler imaging. Measurements of t he leg veins (in mm) are listed above. CONCLUSION: 1. Right greater saphenous vein surgically absent for previous bypass. Measurements on the left given above. Eugene Rice MD on February 23, 2017 at 19:47 Board Certified Radiologist. This report was verified electronically.
--- NOTE | 2017-02-23 20:09 | RADRPT ---
EXAM DATE/TIME: 02/23/2017 18:44 [facility] COMPARISON: No previous studies available for comparison. INDICATIONS : Preop cardiac surgery. MEDICAL HISTORY : Myocardial infarction. Congestive heart failure. Hypercholesterolemia. Hearing loss. Cerebrovascular accident. Coronary artery disease. Hypertension. Gout. SURGICAL HISTORY : Coronary artery stent. CABG. Bowel repair. Right leg skin graft. ENCOUNTER: Initial ACUITY: 1 day PAIN SCORE: 0/10 LOCATION: Bilateral neck PEAK SYSTOLIC VELOCITIES (cm/sec): ICA/CCA RATIO: Right: 4.6 Left: 1.1 ICA: Right: 319 Left: 135 CCA: Right: 69 Left: 128 ECA: Right: 381 Left: 111 VERTEBRAL: Right: 41 antegrade Left: 56 antegrade Elevated flow velocities and ICA/CCA ratios have been found to correlate with increased degrees of vessel stenosis, calculated as percentage of diameter relative to a normal segment of distal ICA/CCA FINDINGS: On the right side there is severe calcified plaque around the right carotid bifurcation with markedly elevated PSV ratio and right internal carotid artery velocity is characteristic of a hemodynamically significant stenosis, greater than 80%. Moderate plaque on the left side without evidence for hemody namically significant stenosis. Vertebral artery flow antegrade. CONCLUSION: 1. Sonographic findings are most characteristic of a hemodynamically significant stenosis near the ri t carotid bifurcation, likely greater than 80% stenosis. Eugene Rice MD on February 23, 2017 at 20:05 Board Certified Radiologist. This report was verified electronically.
--- NOTE | 2017-02-23 20:35 | RADRPT ---
EXAM DATE/TIME: 02/23/2017 20:11 [facility] COMPARISON: No previous studies available for comparison. INDICATIONS : Aortic calcification; evaluate for CABG. RADIATION DOSE: 7.16 CTDIvol (mGy) MEDICAL HISTORY : Cardiovascular disease. Cerebrovascular disease. Congestive heart failure. Hypertension SURGICAL HISTORY : CABG ENCOUNTER: Initial ACUITY: 1 day PAIN SCALE: 4/10 LOCATION: chest TECHNIQUE: Volumetric scanning of the chest was performed. Using automated exposure control and adjustment of t he mA and/or kV according to patient size, radiation dose was kept as low as reasonably achievable to obtain optimal diagnostic quality images. FINDINGS: There is a small right-sided pleural effusion. Minimal groundglass opacity in the lungs may represent some minimal edema. Heart size is enlarged. There are dense coronary calcifications and aortic valvular calcifications as well. Previous CABG. No pericardial effusion. No acute findings in the upper abdomen. No acute bony or pneumonia. CONCLUSION: 1. Small right-sided pleural effusion. Minimal groundglass opacity in the lungs that may represent mi nimal edema. Cardiomegaly. No pericardial effusion. 2. Severe coronary artery disease. Aortic valvular calcifications present. No thoracic aortic aneurys mAlfredito Rice MD on February 23, 2017 at 20:28 Board Certified Radiologist. This report was verified electronically.
[2017-02-24] VITALS (26 sets, daily range): BP systolic 91–144; BP diastolic 49–81; PULSE 48–75; RESP 14–18; TEMP 97.5–97.9; O2SAT 96–98
[2017-02-24 01:46] LABS: BLOOD, URINE NEG (NEG); GLUCOSE,URINE NEG (NEG); KETONE, URINE NEG (NEG); NITRITE,URINE NEG (NEG); SQUAMOUS EPITHELIAL CELL URINE <1 /hpf (0-5); URINE COLOR LIGHT-YELLOW (YELLW/STRAW)
[2017-02-24 01:50] LABS: COMMENT (UR) CULT NOT INDICATED; CULTURE IF INDICATED CULT NOT INDICATED
[2017-02-24 06:14] LABS: BICARBONATE 23.2 MEQ/L (21.0-32.0); POTASSIUM 4.2 MEQ/L (3.5-5.1)
[2017-02-24] MEDS: amLODIPine BESYLATE 5 MG TAB PO SCH (08:49)
[2017-02-24] MEDS: ASPIRIN EC 81 MG TABEC PO SCH (08:49)
[2017-02-24] MEDS: ATORVASTATIN 20 MG TAB PO SCH (08:49)
[2017-02-24] MEDS: ISOSORBIDE MONONITRATE 20 MG TAB PO SCH (08:49)
[2017-02-24] MEDS: FINASTERIDE 5 MG TAB PO SCH (08:49)
[2017-02-24] MEDS: FUROSEMIDE 40 MG TAB PO SCH (08:49)
[2017-02-24] MEDS: RANOLAZINE 500 MG EXTENDED RELEASE TAB PO SCH ×2 (08:49→21:58)
[2017-02-24] MEDS: POTASSIUM CHLORIDE 20 MEQ CONTROLLED RELEASE TAB PO SCH (08:50)
[2017-02-24] MEDS: SODIUM CHLORIDE 0.9% FLUSH 10 ML FLUSH IV FLUSH SCH ×2 (08:50→21:58)
[2017-02-24] MEDS: METOPROLOL TARTRATE 100 MG TAB PO SCH ×2 (08:50→21:58)
--- NOTE | 2017-02-24 10:49 | HHI.PR ---
Subjective Remarks Still gets short of breath with minimal activity. No chest pressure today. Being considered for CABG and aVR. Objective Vitals Vital Signs Date Time Temp Pulse Resp B/P Pulse Ox O2 Delivery O2 Flow Rate FiO2 02/24/17 08:15 97.9 75 18 125/67 96 02/24/17 07:01 55 02/24/17 06:00 50 02/24/17 05:00 50 02/24/17 04:00 48 02/24/17 03:00 97.5 54 14 114/52 97 02/24/17 03:00 51 02/24/17 02:00 50 02/24/17 01:00 48 02/24/17 00:00 48 02/23/17 23:00 49 02/23/17 23:00 97.5 53 16 130/76 98 02/23/17 22:00 54 02/23/17 21:00 58 02/23/17 20:00 58 02/23/17 19:00 97.6 60 18 90/47 98 02/23/17 19:00 59 02/23/17 18:00 58 02/23/17 17:00 56 02/23/17 16:00 56 02/23/17 15:15 98.0 58 18 95/54 98 02/23/17 15:15 58 02/23/17 15:00 56 02/23/17 14:00 60 02/23/17 13:00 58 02/23/17 12:00 56 02/23/17 11:00 61 02/23/17 11:00 62 02/23/17 11:00 97.8 61 18 146/69 98 I/O 02/23/17 02/23/17 02/23/17 02/24/17 02/24/17 02/24/17 07:00 15:00 23:00 07:00 15:00 23:00 Intake Total 580 ml 1140 ml 590 ml Output Total 725 ml 475 ml 325 ml Balance -145 ml 665 ml 265 ml Intake Oral 480 ml 960 ml 480 ml IV Total 100 ml 180 ml 110 ml Output Urine Total 725 ml 475 ml 325 ml # Voids 2 # Bowel Movements 2 Result Diagram: 02/23/17 0410 02/24/17 0455 Objective Remarks GENERAL: This is a well-nourished, well-developed patient, in no apparent distress. CARDIOVASCULAR: Normal rate and regular rhythm. 3/6 GONSALO murmur best heard at the right upper sternal border. It does radiate to the neck area. RESPIRATORY: Good respiratory efforts. Breath sounds equal and clear to auscultation bilaterally. GASTROINTESTINAL: Abdomen soft, non-tender, non-distended. Normal active bowel sounds MUSCULOSKELETAL: Extremities without cyanosis, or edema. NEURO: Alert & Oriented x4 to person, place, time, situation. Moves all ext x4 PSYCH: Appropriate mood and affect. A/P Problem List: (1) Systolic and diastolic CHF, acute on chronic ICD Code: I50.43 Status: Acute (2) CAD (coronary artery disease) ICD Code: I25.10 Status: Acute (3) Aortic stenosis ICD Code: I35.0 Status: Acute Assessment and Plan 76-year-old male with acute exacerbation of systolic and diastolic CHF. Patient also has aortic stenosis and multiple vessel coronary artery disease. Probable issues with compliance with medications who presented mainly with shortness of breath on exertion with associated chest tightness. Acute on chronic diastolic and systolic CHF, aortic stenosis: -Elevated BNP. Probably combination of CHF, aortic stenosis and ischemia from CAD. - Continue metoprolol, oral Lasix, Ranexa, Imdur Supplemental oxygen as needed Repeat 2-D echocardiogram per religious education teacher's read shows LVEF of 35-40%. Moderate to severe aortic stenosis. CT surgery consulted. Patient being considered for CABG in aortic valve replacement. Chest pain/Coronary artery disease: Patient with known CAD, multivessel disease. No acute changes on EKG - Currently on heparin drip per cardiology recommendations. CT surgery following. Considering CABG and aortic valve replacement. Continue antiplatelets, isosorbide mononitrate, Ranexa, nitroglycerin as needed -Morphine as needed for pain Diabetes: New diagnosis HgB A1C 7.4 SSI with accuchecks. He will need a modified diet and probably oral hypoglycemic agent on discharge/. Hypertension - Continue amlodipine, metoprolol as above. Hyperlipidemia Continue statin Probable issues with compliance: - Based on discussion with the patient's daughter. He may benefit from home health to help ensure he is taking his medications correctly and adhering to a heart failure regimen. CKD: Renal function stable. Continue to monitor. Avoid nephrotoxins. DVT prophylaxis On heparin drip. Problem Qualifiers (1) CAD (coronary artery disease): Qualified Code: I25.10 - Coronary artery disease, angina presence unspecified, unspecified vessel or lesion type, unspecified whether [place] or transplanted heart (2) Aortic stenosis: Qualified Code: I35.0 - Aortic valve stenosis, unspecified etiology Cynthia Vega MD Feb 24, 2017 10:48
[2017-02-24 12:45] LABS: HEMOGLOBIN A1a 1.3 %; HEMOGLOBIN Ao 83.4 %; HEMOGLOBIN LA1C 1.6 %; HEMOGLOBIN P3 4.1 %
--- NOTE | 2017-02-24 14:05 | PD.CONS ---
History of Present Illness Service CT Surgery Consult Requested By Dr. Chicas Reason for Consult Chest pain, SOB, CAD, Primary Care Physician Non-Staff Diagnoses: (1) Systolic and diastolic CHF, acute on chronic (2) CAD (coronary artery disease) (3) Aortic stenosis History of Present Illness 76 y/o male with longstanding cardiac history presents with unstable angina and exertional dyspnea. He recently underwent left heart catheterization by Dr. Chicas and found to have complex multivessel CAD s/p previous CABG as well as moderate aortic stenosis. He has reduced EF as well at ~35-40%. Medical management of his disease was not successful and he is being considered for REDO CABG and AVR. He denies PND, orthopnea. He denies palpitations, but does c /o chest pressure and pain with minimal exertion. Review of Systems Constitutional: COMPLAINS OF: Diaphoretic episodes, Fatigue, DENIES: Fever, Weight gain, Weight loss, Chills, Dizziness, Change in appetite, Night Sweats Endocrine: DENIES: Heat/cold intolerance, Polydipsia, Polyuria, Polyphagia Eyes: DENIES: Blurred vision, Diplopia, Eye inflammation, Eye pain, Vision loss , Photosensitivity, Double Vision Ears, nose, mouth, throat: DENIES: Tinnitus, Hearing loss, Vertigo, Nasal discharge, Oral lesions, Throat pain, Hoarseness, Ear Pain, Running Nose, Epistaxis, Sinus Pain, Toothache, Odynophagia Respiratory: COMPLAINS OF: Cough, Shortness of breath, DENIES: Apneas, Snoring , Wheezing, Hemoptysis, Sputum production Cardiovascular: COMPLAINS OF: Chest pain, Dyspnea on Exertion, DENIES: Palpitations, Syncope, PND, Lower Extremity Edema, Orthopnea, Claudication Gastrointestinal: DENIES: Abdominal pain, Black stools, Bloody stools, Constipation, Diarrhea, Nausea, Vomiting, Difficulty Swallowing, Anorexia Genitourinary: DENIES: Sexual dysfunction, Urinary frequency, Urinary incontinence, Urgency, Hematuria, Dysuria, Nocturia, Penile Discharge, Testicular Pain, Testicular Swelling Musculoskeletal: DENIES: Joint pain, Muscle aches, Stiffness, Joint Swelling, Back pain, Neck pain Integumentary: DENIES: Abnormal pigmentation, Nail changes, Pruritus, Rash Hematologic/lymphatic: DENIES: Bruising, Lymphadenopathy Immunologic/allergic: DENIES: Eczema, Urticaria Neurologic: DENIES: Abnormal gait, Headache, Localized weakness, Paresthesias, Seizures, Speech Problems, Tremor, Poor Balance Psychiatric: DENIES: Anxiety, Confusion, Mood changes, Depression, Hallucinations, Agitation, Suicidal Ideation, Homicidal Ideation, Delusions Past Family Social History Allergies: Coded Allergies: No Known Allergies (Unverified , 02/22/17) Past Medical History Coronary artery disease status post CABG. Recent heart catheterization shows severe multivessel disease Aortic stenosis CHF History of CVA Hyperlipidemia Gout Hypertension Past Surgical History CABG Abdominal surgery Reported Medications Reported Meds & Active Scripts Active Proair Hfa 8.5 GM Inh (Albuterol Sulfate) 90 Mcg/Act Aer 2 Puff INH Q4-6H PRN 108 mcg/actuation Furosemide 20 Mg Tab 40 Mg PO DAILY Potassium Chloride Microencaps 20 Meq Tab 20 Meq PO DAILY Reported Amlodipine (Amlodipine Besylate) 5 Mg Tab 5 Mg PO DAILY Isosorbide Mononitrate 20 Mg Tab 30 Mg PO DAILY Take 2 doses 7 hours apart. Aspir-81 (Aspirin) 81 Mg Tabdr 81 Mg PO DAILY Nitrostat SL (Nitroglycerin) 0.4 Mg Subl 0.4 Mg SL DIRECTED PRN 1 tablet under the tongue as needed for chest pain. Repeat every 5 minutes for a total of 3 DOSES or call 911 if NO relief. Proscar (Finasteride) 5 Mg Tab 5 Mg PO DAILY Do not crush. Rosuvastatin (Rosuvastatin Calcium) 10 Mg Tab 10 Mg PO DAILY Clopidogrel (Clopidogrel Bisulfate) 75 Mg Tab 75 Mg PO DAILY Metoprolol Tartrate 100 Mg Tab 100 Mg PO BID Ranexa ER 12 HR (Ranolazine) 500 Mg Tab 500 Mg PO BID Past Surgical History s/p CABG ~10-11 yrs ago at [facility] S/p attempted PCI at [place] which failed per the partient Family History Family History Reviewed and noncontributory. Social History Patient lives with his . He was not forthcoming with his alcohol intake. Admits to drinking wine and vodka occasionally. He denies tobacco use Physical Exam Vital Signs Vital Signs Date Time Temp Pulse Resp B/P Pulse Ox O2 Delivery O2 Flow Rate FiO2 02/24/17 11:01 97.8 56 18 91/49 98 02/24/17 11:01 56 02/24/17 10:00 54 02/24/17 09:00 58 02/24/17 08:15 97.9 75 18 125/67 96 02/24/17 08:00 52 02/24/17 07:01 55 02/24/17 06:00 50 02/24/17 05:00 50 02/24/17 04:00 48 02/24/17 03:00 97.5 54 14 114/52 97 02/24/17 03:00 51 02/24/17 02:00 50 02/24/17 01:00 48 02/24/17 00:00 48 02/23/17 23:00 49 02/23/17 23:00 97.5 53 16 130/76 98 02/23/17 22:00 54 02/23/17 21:00 58 02/23/17 20:00 58 02/23/17 19:00 97.6 60 18 90/47 98 02/23/17 19:00 59 02/23/17 18:00 58 02/23/17 17:00 56 02/23/17 16:00 56 02/23/17 15:15 98.0 58 18 95/54 98 02/23/17 15:15 58 02/23/17 15:00 56 02/23/17 14:00 60 Physical Exam GENERAL: This is a well-nourished, well-developed patient, in no apparent distress. SKIN: No rashes, ecchymoses or lesions. Cool and dry. HEAD: Atraumatic. Normocephalic. No temporal or scalp tenderness. EYES: Pupils equal round and reactive. Extraocular motions intact. No scleral icterus. No injection or drainage. ENT: Nose without bleeding, purulent drainage or septal hematoma. Throat without erythema, tonsillar hypertrophy or exudate. Uvula midline. Airway patent. NECK: Trachea midline. No JVD or lymphadenopathy. Supple, nontender, no meningeal signs. CARDIOVASCULAR: Regular rate and rhythm with 2/6 GONSALO at the RUSB.. RESPIRATORY: Clear to auscultation. Breath sounds equal bilaterally. No wheezes , rales, or rhonchi. GASTROINTESTINAL: Abdomen soft, non-tender, nondistended. No hepato-splenomegaly , or palpable masses. No guarding. MUSCULOSKELETAL: Extremities without clubbing, cyanosis, or edema. No joint tenderness, effusion, or edema noted. No calf tenderness. Negative Homans sign bilaterally. NEUROLOGICAL: Awake and alert. Cranial nerves II through XII intact. Motor and sensory grossly within normal limits. Five out of 5 muscle strength in all muscle groups. Normal speech. Laboratory Laboratory Tests Test 02/24/17 02/24/17 01:09 04:55 Urine Color LIGHT-YELLOW Urine Turbidity CLEAR Urine pH 6.0 Urine Specific Alice 1.007 Urine Protein NEG Urine Glucose (UA) NEG Urine Ketones NEG Urine Occult Blood NEG Urine Nitrite NEG Urine Bilirubin NEG Urine Urobilinogen LESS THAN 2.0 Urine Leukocyte Esterase NEG Urine WBC LESS THAN 1 Urine Squamous Epithelial <1 Cells Microscopic Urinalysis Comment CULT NOT INDICATED Nasal Screen MRSA (PCR) MRSA NOT DETECTED Activated Partial 54.0 Thromboplast Time Sodium Level 138 Potassium Level 4.2 Chloride Level 103 Carbon Dioxide Level 23.2 Anion Gap 12 Blood Urea Nitrogen 26 Creatinine 1.51 Estimat Glomerular Filtration 45 Rate Random Glucose 133 Calcium Level 9.1 Result Diagram: 02/23/17 0410 02/24/17 0455 Imaging Last Impressions Lower Extremity Ultrasound 02/23/17 0000 Signed Impressions: Service Date/Time: Thursday, February 23, 2017 18:19 - CONCLUSION: 1. Right greater saphenous vein surgically absent for previous bypass. Measurements on the left given above. Eugene Rice MD Chest CT 02/23/17 0000 Signed Impressions: Service Date/Time: Thursday, February 23, 2017 20:11 - CONCLUSION: 1. Small right-sided pleural effusion. Minimal groundglass opacity in the lungs that may represent minimal edema. Cardiomegaly. No pericardial effusion. 2. Severe coronary artery disease. Aortic valvular calcifications present. No thoracic aortic aneurysm. Eugene Rice MD Carotid Artery Ultrasound 02/23/17 0000 Signed Impressions: Service Date/Time: Thursday, February 23, 2017 18:44 - CONCLUSION: 1. Sonographic findings are most characteristic of a hemodynamically significant stenosis near the right carotid bifurcation, likely greater than 80%% stenosis. Eugene Rice MD Chest X-Ray 02/22/17 1156 Signed Impressions: Service Date/Time: February 11:58 - CONCLUSION: 1. Post median sternotomy changes and cardiomegaly. Exam is stable compared to previous. Ken Juares MD Course Patient is stable and pain-free on a heparin infusion. Assessment and Plan Problem List: (1) Systolic and diastolic CHF, acute on chronic Status: Acute (2) CAD (coronary artery disease) Status: Acute (3) Aortic stenosis Status: Acute (4) Unstable angina Status: Acute Assessment and Plan 76 y/o male presents with unstable angina and moderate to severe . I reviewed his recent ECHO as well as his [facility] bebo done 02/06/[address] Chicas. Unfortunately, his left-sided distal targets are very small and not likely graftable. His ANDERSEN is patent to a small LAD. There is a diseased, but patent SVG to a small Ramus. He has a patent stent in the [place] RCA and moderate disease in the RCA distribution. The ECHO is notable for a calcified AV with leaflet restriction as well as reduced EF. is moderate to severe on this study. In summary, the patient is experiencing refractory symptoms with no good distal targets in the left coronary distribution. He has significant and may benefit from AVR +/- CABG to the RCA distribution which has moderate disease s/ p stent placement. The AV gradient measured on C/RHC is not very impressive, but the valve appears worse on ECHO. It is difficult to assess how much symptomatic relief he will get from REDO CABG with AVR based on these findings. I discussed this with him and he states he cannot "live" like this and would like to be considered for surgery. Will follow and determine timing [place]. Problem Qualifiers (1) CAD (coronary artery disease): Qualified Code: I25.10 - Coronary artery disease, angina presence unspecified, unspecified vessel or lesion type, unspecified whether [place] or transplanted heart (2) Aortic stenosis: Qualified Code: I35.0 - Aortic valve stenosis, unspecified etiology Renetta Veloz MD Feb 24, 2017 14:05
[2017-02-24] MEDS ORDERED: GLUCAGON 1 MG/ML VIAL OTHER PRN (16:00)
[2017-02-24] MEDS: INSULIN ASPART SUPPLEMENTAL SCALE SQ SCH ×2 (16:00→21:56)
[2017-02-24] MEDS ORDERED: DEXTROSE 50% IN WATER 50 ML VIAL(D50) IV PRN (16:00)
[2017-02-24] MEDS: HEPARIN-D5W INJ 250 ML IV SCH (16:34)
[2017-02-25] VITALS (27 sets, daily range): BP systolic 98–137; BP diastolic 52–66; PULSE 48–65; RESP 12–18; TEMP 97.5–98.2; O2SAT 95–99
[2017-02-25 04:53] LABS: HEMATOCRIT 34.1 % (39.0-51.0); MEAN CELL VOLUME 85.3 FL (80.0-100.0); PLATELET COUNT 221 TH/MM3 (150-450); RED CELL DISTRIBUTION WIDTH 14.5 % (11.6-17.2); REVIEW FLAG FINAL
[2017-02-25 05:03] LABS: APTT (PATIENT) 60.6 SEC (24.3-30.1)
[2017-02-25 05:15] LABS: BICARBONATE 25.6 MEQ/L (21.0-32.0); POTASSIUM 4.3 MEQ/L (3.5-5.1)
[2017-02-25] MEDS: INSULIN ASPART SUPPLEMENTAL SCALE SQ SCH ×4 (07:00→20:39)
[2017-02-25] MEDS: ISOSORBIDE MONONITRATE 20 MG TAB PO SCH (08:29)
[2017-02-25] MEDS: RANOLAZINE 500 MG EXTENDED RELEASE TAB PO SCH ×2 (08:30→20:45)
[2017-02-25] MEDS: FUROSEMIDE 40 MG TAB PO SCH (08:30)
[2017-02-25] MEDS: FINASTERIDE 5 MG TAB PO SCH (08:30)
[2017-02-25] MEDS: POTASSIUM CHLORIDE 20 MEQ CONTROLLED RELEASE TAB PO SCH (08:30)
[2017-02-25] MEDS: ATORVASTATIN 20 MG TAB PO SCH (08:30)
[2017-02-25] MEDS: METOPROLOL TARTRATE 100 MG TAB PO SCH ×3 (08:30→20:45)
[2017-02-25] MEDS: amLODIPine BESYLATE 5 MG TAB PO SCH (08:30)
[2017-02-25] MEDS: ASPIRIN EC 81 MG TABEC PO SCH (08:31)
[2017-02-25] MEDS: SODIUM CHLORIDE 0.9% FLUSH 10 ML FLUSH IV FLUSH SCH ×2 (08:31→20:45)
--- NOTE | 2017-02-25 10:18 | PD.CAR.PN ---
CVT Progress Note Subjective/Hospital Course: No complaints. His 2 daughters are with him. Objective: Vital Signs Date Time Temp Pulse Resp B/P Pulse Ox O2 Delivery O2 Flow Rate FiO2 02/25/17 08:15 97.5 53 18 137/66 96 02/25/17 07:01 54 02/25/17 06:00 48 02/25/17 05:00 48 02/25/17 04:00 48 02/25/17 03:00 97.6 53 12 98/52 97 02/25/17 03:00 55 02/25/17 02:00 48 02/25/17 01:00 50 02/25/17 00:00 48 02/24/17 23:00 51 02/24/17 23:00 97.6 53 14 92/58 96 02/24/17 22:00 52 02/24/17 21:00 56 02/24/17 20:00 56 02/24/17 19:00 59 02/24/17 19:00 97.5 60 14 144/81 98 02/24/17 18:01 52 02/24/17 17:00 54 02/24/17 16:01 62 02/24/17 15:30 97.9 54 18 110/62 98 02/24/17 15:00 55 02/24/17 14:00 58 02/24/17 13:00 58 02/24/17 12:00 54 02/24/17 11:01 97.8 56 18 91/49 98 02/24/17 11:01 56 Labs: Laboratory Tests Test 02/25/17 04:25 White Blood Count 8.0 TH/MM3 (4.0-11.0) Red Blood Count 4.00 MIL/MM3 (4.50-5.90) Hemoglobin 11.6 GM/DL (13.0-17.0) Hematocrit 34.1 % (39.0-51.0) Mean Corpuscular Volume 85.3 FL (80.0-100.0) Mean Corpuscular Hemoglobin 29.0 PG (27.0-34.0) Mean Corpuscular Hemoglobin 34.0 % Concent (32.0-36.0) Red Cell Distribution Width 14.5 % (11.6-17.2) Platelet Count 221 TH/MM3 (150-450) Mean Platelet Volume 10.2 FL (7.0-11.0) Activated Partial 60.6 SEC Thromboplast Time (24.3-30.1) Sodium Level 137 MEQ/L (136-145) Potassium Level 4.3 MEQ/L (3.5-5.1) Chloride Level 104 MEQ/L (98-107) Carbon Dioxide Level 25.6 MEQ/L (21.0-32.0) Anion Gap 7 MEQ/L (5-15) Blood Urea Nitrogen 30 MG/DL (7-18) Creatinine 1.76 MG/DL (0.60-1.30) Estimat Glomerular Filtration 38 ML/MIN (>89) Rate Random Glucose 132 MG/DL (74-106) Calcium Level 9.2 MG/DL (8.5-10.1) Result Diagram: 02/25/1742402/25/17424 Cardiovascular: RRR Telemetry: NSR Pulmonary: CTA GI/: NABS Plan: Creatinine a little higher this morning - consider holding lasix. I had a meeting with him and his daughters this morning and addressed their questions/concerns. He has no reasonable distal targets on the left and the RCA has a 40-50% stenosis. I am not sure surgical revascularization will be of much benefit except to either bypass or stent the ramus vein graft. He also has aortic stenosis which appears worse on ECHO than his cath. His BNP is elevated, so he may benefit from AVR or TAVR if his is underestimated. I will review his studies with my partner and Dr. Chicas tomorrow. Renetta Veloz MD Feb 25, 2017 10:18
--- NOTE | 2017-02-25 11:53 | HHI.PR ---
Subjective Remarks Patient reports is feeling better today. No chest pain. Dyspnea closer to baseline. Objective Vitals Vital Signs Date Time Temp Pulse Resp B/P Pulse Ox O2 Delivery O2 Flow Rate FiO2 02/25/17 10:01 54 02/25/17 09:00 54 02/25/17 08:15 97.5 53 18 137/66 96 02/25/17 08:00 50 02/25/17 07:01 54 02/25/17 06:00 48 02/25/17 05:00 48 02/25/17 04:00 48 02/25/17 03:00 97.6 53 12 98/52 97 02/25/17 03:00 55 02/25/17 02:00 48 02/25/17 01:00 50 02/25/17 00:00 48 02/24/17 23:00 51 02/24/17 23:00 97.6 53 14 92/58 96 02/24/17 22:00 52 02/24/17 21:00 56 02/24/17 20:00 56 02/24/17 19:00 59 02/24/17 19:00 97.5 60 14 144/81 98 02/24/17 18:01 52 02/24/17 17:00 54 02/24/17 16:01 62 02/24/17 15:30 97.9 54 18 110/62 98 02/24/17 15:00 55 02/24/17 14:00 58 02/24/17 13:00 58 02/24/17 12:00 54 I/O 02/24/17 02/24/17 02/24/17 02/25/17 02/25/17 02/25/17 07:00 15:00 23:00 07:00 15:00 23:00 Intake Total 590 ml 630 ml 580 ml Output Total 325 ml 325 ml 1075 ml Balance 265 ml 305 ml -495 ml Intake Oral 480 ml 480 ml 480 ml IV Total 110 ml 150 ml 100 ml Output Urine Total 325 ml 325 ml 1075 ml # Voids 4 # Bowel Movements 0 Result Diagram: 02/25/17 0425 02/25/17 0425 Objective Remarks GENERAL: This is a well-nourished, well-developed patient, in no apparent distress. CARDIOVASCULAR: Normal rate and regular rhythm. 3/6 GONSALO murmur best heard at the right upper sternal border. It does radiate to the neck area. RESPIRATORY: Good respiratory efforts. Breath sounds equal and clear to auscultation bilaterally. GASTROINTESTINAL: Abdomen soft, non-tender, non-distended. Normal active bowel sounds MUSCULOSKELETAL: Extremities without cyanosis, or edema. NEURO: Alert & Oriented x4 to person, place, time, situation. Moves all ext x4 PSYCH: Appropriate mood and affect. A/P Problem List: (1) Systolic and diastolic CHF, acute on chronic ICD Code: I50.43 Status: Acute (2) CAD (coronary artery disease) ICD Code: I25.10 Status: Acute (3) Aortic stenosis ICD Code: I35.0 Status: Acute Assessment and Plan 76-year-old male with acute exacerbation of systolic and diastolic CHF. Patient also has aortic stenosis and multiple vessel coronary artery disease. Probable issues with compliance with medications who presented mainly with shortness of breath on exertion with associated chest tightness. Acute on chronic diastolic and systolic CHF, aortic stenosis: -Elevated BNP. Combination of CHF, aortic stenosis and ischemia from CAD. - Continue metoprolol, oral Lasix, Ranexa, Imdur Supplemental oxygen as needed Repeat 2-D echocardiogram per career development manager's read shows LVEF of 35-40%. Moderate to severe aortic stenosis. CT surgery following. Patient being considered for CABG and aortic valve replacement. Chest pain/Coronary artery disease: Patient with known CAD, multivessel disease. No acute changes on EKG - Currently on heparin drip per cardiology recommendations. CT surgery following. Considering CABG and aortic valve replacement. Continue isosorbide mononitrate, Ranexa, nitroglycerin as needed -Morphine as needed for pain Diabetes: New diagnosis HgB A1C 7.4 SSI with accuchecks. He will need a modified diet and probably oral hypoglycemic agent on discharge/. Hypertension - Continue amlodipine, metoprolol as above. Hyperlipidemia Continue statin Probable issues with compliance: - Based on discussion with the patient's daughter. He may benefit from home health to help ensure he is taking his medications correctly and adhering to a heart failure regimen. CKD: Renal function stable. Continue to monitor. Avoid nephrotoxins. DVT prophylaxis On heparin drip. Problem Qualifiers (1) CAD (coronary artery disease): Qualified Code: I25.10 - Coronary artery disease, angina presence unspecified, unspecified vessel or lesion type, unspecified whether [place] or transplanted heart (2) Aortic stenosis: Qualified Code: I35.0 - Aortic valve stenosis, unspecified etiology Cynthia Vega MD Feb 25, 2017 11:53
[2017-02-25] MEDS: HEPARIN-D5W INJ 250 ML IV SCH (18:30)
[2017-02-26] VITALS (24 sets, daily range): BP systolic 107–141; BP diastolic 56–74; PULSE 50–65; RESP 12–20; TEMP 97.5–97.7; O2SAT 95–100
[2017-02-26 06:22] LABS: HEMATOCRIT 36.7 % (39.0-51.0); MEAN CELL VOLUME 86.9 FL (80.0-100.0); MEAN CORPUSCULAR HEMOGLOBIN 28.5 PG (27.0-34.0); MEAN CORPUSCULAR HGB CONC 32.8 % (32.0-36.0); PLATELET COUNT 191 TH/MM3 (150-450); RED BLOOD COUNT 4.22 MIL/MM3 (4.50-5.90); RED CELL DISTRIBUTION WIDTH 14.6 % (11.6-17.2); REVIEW FLAG FINAL; WHITE BLOOD COUNT 8.2 TH/MM3 (4.0-11.0)
[2017-02-26] MEDS: INSULIN ASPART SUPPLEMENTAL SCALE SQ SCH ×4 (06:25→21:00)
[2017-02-26 06:38] LABS: APTT (PATIENT) 57.1 SEC (24.3-30.1)
[2017-02-26 06:40] LABS: BICARBONATE 22.4 MEQ/L (21.0-32.0); POTASSIUM 4.4 MEQ/L (3.5-5.1)
[2017-02-26] MEDS: RANOLAZINE 500 MG EXTENDED RELEASE TAB PO SCH ×2 (09:00→20:35)
[2017-02-26] MEDS: METOPROLOL TARTRATE 100 MG TAB PO SCH ×2 (09:00→20:35)
[2017-02-26] MEDS: SODIUM CHLORIDE 0.9% FLUSH 10 ML FLUSH IV FLUSH SCH ×2 (09:00→20:36)
[2017-02-26] MEDS: ASPIRIN EC 81 MG TABEC PO SCH (09:00)
[2017-02-26] MEDS: FINASTERIDE 5 MG TAB PO SCH (09:00)
[2017-02-26] MEDS: ISOSORBIDE MONONITRATE 20 MG TAB PO SCH (09:00)
[2017-02-26] MEDS: POTASSIUM CHLORIDE 20 MEQ CONTROLLED RELEASE TAB PO SCH (09:00)
[2017-02-26] MEDS: FUROSEMIDE 40 MG TAB PO SCH (09:01)
[2017-02-26] MEDS: ATORVASTATIN 20 MG TAB PO SCH (09:01)
[2017-02-26] MEDS: amLODIPine BESYLATE 5 MG TAB PO SCH (09:06)
[2017-02-26] MEDS ORDERED: SIMETHICONE 80 MG CHEWABLE TAB CHEW ONE (10:00)
[2017-02-26] MEDS: PANTOPRAZOLE SOD 40 MG DELAYED RELEASE TAB PO SCH (11:13)
--- NOTE | 2017-02-26 13:06 | HHI.PR ---
Subjective Remarks no complains of chest pain or shortness of breath- no abdominal pain Objective Vitals Vital Signs Date Time Temp Pulse Resp B/P Pulse Ox O2 Delivery O2 Flow Rate FiO2 02/26/17 12:00 63 02/26/17 11:00 53 02/26/17 11:00 97.5 52 20 123/58 98 02/26/17 10:00 60 02/26/17 09:00 65 02/26/17 08:00 54 02/26/17 07:00 97.6 58 20 141/74 99 02/26/17 07:00 51 02/26/17 06:00 56 02/26/17 05:00 56 02/26/17 04:00 60 02/26/17 03:00 50 02/26/17 03:00 97.5 53 16 107/56 100 02/26/17 02:00 50 02/26/17 01:00 50 02/26/17 00:00 60 02/25/17 23:00 97.6 55 12 110/52 99 02/25/17 23:00 57 02/25/17 22:00 58 02/25/17 21:00 62 02/25/17 20:00 58 02/25/17 19:00 65 02/25/17 19:00 97.8 55 14 113/58 98 02/25/17 18:01 56 02/25/17 17:00 54 02/25/17 16:01 58 02/25/17 15:15 98.2 61 18 117/58 98 02/25/17 15:00 60 02/25/17 14:00 56 I/O 02/25/17 02/25/17 02/25/17 02/26/17 02/26/17 02/26/17 07:00 15:00 23:00 07:00 15:00 23:00 Intake Total 580 ml 946 ml 480 ml Output Total 1075 ml 480 ml 700 ml Balance -495 ml 466 ml -220 ml Intake Oral 480 ml 840 ml 480 ml IV Total 100 ml 106 ml Output Urine Total 1075 ml 480 ml 700 ml # Voids 3 # Bowel Movements 1 Result Diagram: 02/26/17 0600 02/26/17 0600 Imaging Last Impressions Lower Extremity Ultrasound 02/23/17 0000 Signed Impressions: Service Date/Time: Thursday, February 23, 2017 18:19 - CONCLUSION: 1. Right greater saphenous vein surgically absent for previous bypass. Measurements on the left given above. Eugene Rice MD Chest CT 02/23/17 0000 Signed Impressions: Service Date/Time: Thursday, February 23, 2017 20:11 - CONCLUSION: 1. Small right-sided pleural effusion. Minimal groundglass opacity in the lungs that may represent minimal edema. Cardiomegaly. No pericardial effusion. 2. Severe coronary artery disease. Aortic valvular calcifications present. No thoracic aortic aneurysm. Eugene Rice MD Carotid Artery Ultrasound 02/23/17 0000 Signed Impressions: Service Date/Time: Thursday, February 23, 2017 18:44 - CONCLUSION: 1. Sonographic findings are most characteristic of a hemodynamically significant stenosis near the right carotid bifurcation, likely greater than 80%% stenosis. Eugene Rice MD Chest X-Ray 02/22/17 1156 Signed Impressions: Service Date/Time: February 11:58 - CONCLUSION: 1. Post median sternotomy changes and cardiomegaly. Exam is stable compared to previous. Ken Juares MD Objective Remarks awake and alert, NAD anicteric no carotid bruit regular rhythm, 3/6 systolic murmur left sternal border abdomen soft, nontender extremities no edema neuro exam- non focal A/P Problem List: (1) Systolic and diastolic CHF, acute on chronic ICD Code: I50.43 Status: Acute (2) CAD (coronary artery disease) ICD Code: I25.10 Status: Acute (3) Aortic stenosis ICD Code: I35.0 Status: Acute Assessment and Plan 76-year-old male with acute exacerbation of systolic and diastolic CHF. Patient also has aortic stenosis and multiple vessel coronary artery disease. Probable issues with compliance with medications who presented mainly with shortness of breath on exertion with associated chest tightness. Acute on chronic diastolic and systolic CHF, aortic stenosis: -Elevated BNP. Combination of CHF, aortic stenosis and ischemia from CAD. - Continue metoprolol, oral Lasix, Ranexa, Imdur Supplemental oxygen as needed Repeat 2-D echocardiogram per assistant principal's read shows LVEF of 35-40%. Moderate to severe aortic stenosis. CT surgery following. aortic valve replacement. - for stress Echo today. consider adding BINDU to regimen Chest pain/Coronary artery disease: Patient with known CAD, multivessel disease. No acute changes on EKG Right carotid stenosis- 80% - Currently on heparin drip per cardiology recommendations. CT surgery following. Considering CABG and aortic valve replacement. Continue isosorbide mononitrate, Ranexa, nitroglycerin as needed -Morphine as needed for pain - d/w Dr. Veloz - no history of CVA - on heparin drip Diabetes Mellitus - New diagnosis HgB A1C 7.4 SSI with accuchecks. He will need a modified diet and probably oral hypoglycemic agent on discharge/. Hypertension - Continue amlodipine, metoprolol as above. Hyperlipidemia Continue statin Probable issues with compliance: - Based on discussion with the patient's daughter. He may benefit from home health to help ensure he is taking his medications correctly and adhering to a heart failure regimen. CKD: Renal function stable. Continue to monitor. Avoid nephrotoxins. DVT prophylaxis On heparin drip. Problem Qualifiers (1) CAD (coronary artery disease): Qualified Code: I25.10 - Coronary artery disease, angina presence unspecified, unspecified vessel or lesion type, unspecified whether [place] or transplanted heart (2) Aortic stenosis: Qualified Code: I35.0 - Aortic valve stenosis, unspecified etiology Tristan Garces MD Feb 26, 2017 13:06
--- NOTE | 2017-02-26 14:42 | PD.CARD.PN ---
Subjective Subjective Remarks No chest pain or sob Objective Medications Administered Medications Medications (Trade) Dose Ordered Sig/[place] Route PRN Reason Start Time Stop Time Status Last Admin Dose Admin Heparin Sodium/ Dextrose (Heparin-D5W Inj) 250 ml @ 0 mls/hr TITRATE IV 02/22/17 14:00 02/25/17 18:30 Amlodipine Besylate (Norvasc) 5 mg DAILY PO 02/23/17 09:00 02/26/17 09:06 Aspirin (Ecotrin Ec) 81 mg DAILY PO 02/23/17 09:00 02/26/17 09:00 Finasteride (Proscar) 5 mg DAILY PO 02/23/17 09:00 02/26/17 09:00 Isosorbide Mononitrate (Ismo) 30 mg DAILY PO 02/23/17 09:00 02/26/17 09:00 Ranolazine (Ranexa) 500 mg BID PO 02/22/17 21:00 02/26/17 09:00 Atorvastatin Calcium (Lipitor) 20 mg DAILY PO CM 02/23/17 09:00 02/26/17 09:01 Sodium Chloride (NS Flush) 2 ml BID IV FLUSH 02/22/17 21:00 02/26/17 09:00 Nitroglycerin (Nitrostat Sl) 0.4 mg Q5M PRN SL CHEST PAIN 02/22/17 14:15 02/22/17 21:06 Clopidogrel Bisulfate (Plavix) 75 mg DAILY PO 02/23/17 09:00 Hold 02/23/17 10:53 Furosemide (Lasix) 40 mg DAILY PO 02/23/17 09:00 02/26/17 09:01 Metoprolol Tartrate (Lopressor) 100 mg BID PO 02/22/17 21:00 02/26/17 09:00 Potassium Chloride (KCl) 20 meq DAILY PO 02/23/17 09:00 02/26/17 09:00 Pantoprazole Sodium (Protonix) 40 mg DAILY PO 02/26/17 10:00 02/26/17 11:13 Vital Signs / I&O Vital Signs Date Time Temp Pulse Resp B/P Pulse Ox O2 Delivery O2 Flow Rate FiO2 02/26/17 14:00 54 02/26/17 13:00 52 02/26/17 12:00 63 02/26/17 11:00 53 02/26/17 11:00 97.5 52 20 123/58 98 02/26/17 10:00 60 02/26/17 09:00 65 02/26/17 08:00 54 02/26/17 07:00 97.6 58 20 141/74 99 02/26/17 07:00 51 02/26/17 06:00 56 02/26/17 05:00 56 02/26/17 04:00 60 02/26/17 03:00 50 02/26/17 03:00 97.5 53 16 107/56 100 02/26/17 02:00 50 02/26/17 01:00 50 02/26/17 00:00 60 02/25/17 23:00 97.6 55 12 110/52 99 02/25/17 23:00 57 02/25/17 22:00 58 02/25/17 21:00 62 02/25/17 20:00 58 02/25/17 19:00 65 02/25/17 19:00 97.8 55 14 113/58 98 02/25/17 18:01 56 02/25/17 17:00 54 02/25/17 16:01 58 02/25/17 15:15 98.2 61 18 117/58 98 02/25/17 15:00 60 I/O 02/25/17 02/25/17 02/25/17 02/26/17 02/26/17 02/26/17 07:00 15:00 23:00 07:00 15:00 23:00 Intake Total 580 ml 946 ml 480 ml Output Total 1075 ml 480 ml 700 ml Balance -495 ml 466 ml -220 ml Intake Oral 480 ml 840 ml 480 ml IV Total 100 ml 106 ml Output Urine Total 1075 ml 480 ml 700 ml # Voids 3 # Bowel Movements 1 Physical Exam GENERAL: Well-nourished, well-developed patient in no apparent distress. SKIN: Warm and dry. NECK: JVD normal - less than or equal to 5 cm H20. CARDIOVASCULAR: Regular rate and rhythm without murmurs, gallops or rubs. RESPIRATORY: Normal breath sounds - equal bilaterally. No accessory muscle use. No wheezes, rales or rubs. PERIPHERY: No cyanosis or edema. Feels much better on Heparin no more chest pain Laboratory Laboratory Tests Test 02/26/17 06:00 White Blood Count 8.2 TH/MM3 Red Blood Count 4.22 MIL/MM3 Hemoglobin 12.0 GM/DL Hematocrit 36.7 % Mean Corpuscular Volume 86.9 FL Mean Corpuscular Hemoglobin 28.5 PG Mean Corpuscular Hemoglobin 32.8 % Concent Red Cell Distribution Width 14.6 % Platelet Count 191 TH/MM3 Mean Platelet Volume 9.9 FL Activated Partial 57.1 SEC Thromboplast Time Sodium Level 135 MEQ/L Potassium Level 4.4 MEQ/L Chloride Level 102 MEQ/L Carbon Dioxide Level 22.4 MEQ/L Anion Gap 11 MEQ/L Blood Urea Nitrogen 32 MG/DL Creatinine 1.64 MG/DL Estimat Glomerular Filtration 41 ML/MIN Rate Random Glucose 141 MG/DL Calcium Level 9.3 MG/DL Assessment and Plan Assessment and Plan Try medical management for now, as pt much better. Will discuss with Dave Phillips MD Feb 26, 2017 14:42
--- NOTE | 2017-02-26 15:40 | PD.CAR.PN ---
CVT Progress Note Subjective/Hospital Course: No complaints. His 2 daughters are with him.3 will check Dobutamine stress echo in am , to eval aortic valve agree with medical treatment or stenting of vein graft for now no chest shauna ambulating in hallway without difficulty Objective: Vital Signs Date Time Temp Pulse Resp B/P Pulse Ox O2 Delivery O2 Flow Rate FiO2 02/26/17 15:00 97.5 54 20 115/64 98 02/26/17 15:00 52 02/26/17 14:00 54 02/26/17 13:00 52 02/26/17 12:00 63 02/26/17 11:00 53 02/26/17 11:00 97.5 52 20 123/58 98 02/26/17 10:00 60 02/26/17 09:00 65 02/26/17 08:00 54 02/26/17 07:00 97.6 58 20 141/74 99 02/26/17 07:00 51 02/26/17 06:00 56 02/26/17 05:00 56 02/26/17 04:00 60 02/26/17 03:00 50 02/26/17 03:00 97.5 53 16 107/56 100 02/26/17 02:00 50 02/26/17 01:00 50 02/26/17 00:00 60 02/25/17 23:00 97.6 55 12 110/52 99 02/25/17 23:00 57 02/25/17 22:00 58 02/25/17 21:00 62 02/25/17 20:00 58 02/25/17 19:00 65 02/25/17 19:00 97.8 55 14 113/58 98 02/25/17 18:01 56 02/25/17 17:00 54 02/25/17 16:01 58 Labs: Laboratory Tests Test 02/26/17 06:00 White Blood Count 8.2 TH/MM3 (4.0-11.0) Red Blood Count 4.22 MIL/MM3 (4.50-5.90) Hemoglobin 12.0 GM/DL (13.0-17.0) Hematocrit 36.7 % (39.0-51.0) Mean Corpuscular Volume 86.9 FL (80.0-100.0) Mean Corpuscular Hemoglobin 28.5 PG (27.0-34.0) Mean Corpuscular Hemoglobin 32.8 % Concent (32.0-36.0) Red Cell Distribution Width 14.6 % (11.6-17.2) Platelet Count 191 TH/MM3 (150-450) Mean Platelet Volume 9.9 FL (7.0-11.0) Activated Partial 57.1 SEC Thromboplast Time (24.3-30.1) Sodium Level 135 MEQ/L (136-145) Potassium Level 4.4 MEQ/L (3.5-5.1) Chloride Level 102 MEQ/L (98-107) Carbon Dioxide Level 22.4 MEQ/L (21.0-32.0) Anion Gap 11 MEQ/L (5-15) Blood Urea Nitrogen 32 MG/DL (7-18) Creatinine 1.64 MG/DL (0.60-1.30) Estimat Glomerular Filtration 41 ML/MIN (>89) Rate Random Glucose 141 MG/DL (74-106) Calcium Level 9.3 MG/DL (8.5-10.1) (Diane Liang) Result Diagram: 02/26/17 0600 02/26/17 0600 Telemetry: NSR (Diane Liang) (1) CAD (coronary artery disease) (2) Hx of CABG (3) Aortic stenosis Plan: for dobutamine stress echo in am (4) Congestive heart failure (Diane Liang) Plan: Dr. Chicas called me and will have the patient on medical therapy and see how he does clinically. If the patient returns, will pursue stress echo and potential surgical intervention. (1) CAD (coronary artery disease) (2) Hx of CABG (3) Aortic stenosis Plan: for dobutamine stress echo in am (4) Congestive heart failure (Renetta Veloz MD) Problem Qualifiers (1) CAD (coronary artery disease): Qualified Code: I25.10 - Coronary artery disease, angina presence unspecified, unspecified vessel or lesion type, unspecified whether [place] or transplanted heart (2) Aortic stenosis: Qualified Code: I35.0 - Aortic valve stenosis, unspecified etiology (3) Congestive heart failure: Qualified Code: I50.9 - Acute on chronic congestive heart failure, unspecified congestive heart failure type Diane Liang Feb 26, 2017 15:40 Renetta Veloz MD Feb 26, 2017 15:48
[2017-02-27] VITALS (22 sets, daily range): BP systolic 113–140; BP diastolic 50–84; PULSE 48–64; RESP 12–20; TEMP 97.2–97.8; O2SAT 93–100
[2017-02-27] MEDS: INSULIN ASPART SUPPLEMENTAL SCALE SQ SCH ×4 (06:00→21:00)
[2017-02-27] MEDS: FUROSEMIDE 40 MG TAB PO SCH (09:30)
[2017-02-27] MEDS: POTASSIUM CHLORIDE 20 MEQ CONTROLLED RELEASE TAB PO SCH (09:30)
[2017-02-27] MEDS: amLODIPine BESYLATE 5 MG TAB PO SCH (09:30)
[2017-02-27] MEDS: METOPROLOL TARTRATE 100 MG TAB PO SCH ×2 (09:30→20:14)
[2017-02-27] MEDS: PANTOPRAZOLE SOD 40 MG DELAYED RELEASE TAB PO SCH (09:30)
[2017-02-27] MEDS: RANOLAZINE 500 MG EXTENDED RELEASE TAB PO SCH ×2 (09:30→20:14)
[2017-02-27] MEDS: ISOSORBIDE MONONITRATE 20 MG TAB PO SCH (09:30)
[2017-02-27] MEDS: SODIUM CHLORIDE 0.9% FLUSH 10 ML FLUSH IV FLUSH SCH ×2 (09:30→20:14)
[2017-02-27] MEDS: ATORVASTATIN 20 MG TAB PO SCH (09:30)
[2017-02-27] MEDS: ASPIRIN EC 81 MG TABEC PO SCH (09:31)
[2017-02-27] MEDS: FINASTERIDE 5 MG TAB PO SCH (09:31)
[2017-02-27] MEDS ORDERED: DOBUTamine PREMIX DRIP 250 ML ONE (10:28)
--- NOTE | 2017-02-27 15:07 | PD.CAR.PN ---
CVT Progress Note Subjective/Hospital Course: dr veloz spoke with Dr Chicas / medical therapy at this point, dobutamine stress echo cancelled Objective: Vital Signs Date Time Temp Pulse Resp B/P Pulse Ox O2 Delivery O2 Flow Rate FiO2 02/27/17 14:00 57 02/27/17 13:00 52 02/27/17 11:00 49 02/27/17 11:00 97.8 50 20 113/66 99 02/27/17 10:00 56 02/27/17 09:00 57 02/27/17 08:00 64 02/27/17 07:00 49 02/27/17 07:00 97.5 54 20 140/84 100 02/27/17 06:00 50 02/27/17 05:00 48 02/27/17 04:00 59 02/27/17 03:00 50 02/27/17 03:00 97.5 51 12 126/70 99 02/27/17 02:00 54 02/27/17 01:00 52 02/27/17 00:00 50 02/26/17 23:00 52 02/26/17 23:00 97.6 56 18 127/63 95 02/26/17 22:00 50 02/26/17 21:00 54 02/26/17 20:00 52 02/26/17 19:00 97.7 56 12 120/58 96 02/26/17 19:00 52 02/26/17 18:00 57 02/26/17 17:00 54 02/26/17 16:00 53 Labs: Laboratory Tests Test 02/27/17 05:45 Activated Partial 28.0 SEC Thromboplast Time (24.3-30.1) (Diane Liang) Result Diagram: 02/26/17 0600 02/26/17 0600 (1) CAD (coronary artery disease) (2) Hx of CABG (3) Aortic stenosis Plan: medical therapy at this point please reconsult if needed (4) Congestive heart failure (Diane Liang) Plan: Stress echo was performed yesterday. AV gradient increased with dobutamine to a 3.7 m/s jet. The patient would likely benefit from PCI ramus vein graft and AV replacement. Will discuss with Dr. Chicas. (Renetta Veloz MD) Problem Qualifiers (1) CAD (coronary artery disease): Qualified Code: I25.10 - Coronary artery disease, angina presence unspecified, unspecified vessel or lesion type, unspecified whether [place] or transplanted heart (2) Aortic stenosis: Qualified Code: I35.0 - Aortic valve stenosis, unspecified etiology (3) Congestive heart failure: Qualified Code: I50.9 - Acute on chronic congestive heart failure, unspecified congestive heart failure type Diane Liang Feb 27, 2017 15:07 Renetta Veloz MD Feb 28, 2017 14:03
--- NOTE | 2017-02-27 15:46 | ECHRPT ---
Indication: CONCLUSIONS LV systolic dysfunction with estimated 35% ejection fraction Low flow Low Gradient Severe Aortic Stenosis Aortic Valve Area 0.5cm2, Aoritc Valve Mean gradient on 15mcg of dobutamine 38mmHg with a Velocity 3.5 m/sec KILO- 0.5cm2 STRESS TEST Protocol: Dobutamine Duration (m:s): Dobutamine Dose: 20 mcg/kg/min Atropine Dose: Resting HR (bpm): Resting BP (mmHg): / MPHR: 146 Target HR: 124 Peak HR (bpm): Peak BP (mmHg): / % MPHR: Double Product: Target HR Summary: BP Response: Termination Reason: Cardiac Symptoms: REST ECHO FINDINGS Av gradient was 50 max, 29 mean KILO .60cm STRESS ECHO FINDINGS 10 mc 53 max 31 mean .58 kilo 15 mc 61 max 38 mean kilo .54 20 mc 51 max 30 mean kilo .60 MEASUREMENTS (Male/Female) Normal Values 2D ECHO LV Diastolic Diameter RICHELLE 5.2 cm 4.2 - 5.9 / 3 LV Relative Wall Thicknes 0.5 LV Systolic Diameter PLAX 4.4 cm RV Internal Dim ED PLAX 2.9 cm IVS Diastolic Thickness 1.5 cm 0.6 - 1.0 / 0 LVOT Diameter 2.3 cm LVPW Diastolic Thickness 1.1 cm 0.6 - 1.0 / 0.6 - 0.9 cm DOPPLER AV Peak Velocity 361.2 cm/s LVOT Velocity Time Integr 13.8 cm AV Peak Gradient 52.2 mmHg AV Area Cont Eq vti 0.6 cm AV Mean Gradient 30.0 mmHg AV Area Cont Eq pk 0.6 cm AV Velocity Time Integral 98.4 cm TR Peak Velocity 312.0 cm/s LVOT Peak Velocity 51.1 cm/s TR Peak Gradient 38.9 mmHg LVOT Peak Gradient 1.0 mmHg Luiz Garcia MD (Electronically Signed) Final Date:27 February 2017 15:46
--- NOTE | 2017-02-27 16:30 | HHI.PR ---
Subjective Remarks feeling better am,bualting around doing well HR occ goes down to 40-50s- asymptomatic Objective Vitals Vital Signs Date Time Temp Pulse Resp B/P Pulse Ox O2 Delivery O2 Flow Rate FiO2 02/27/17 16:00 54 02/27/17 15:00 97.4 56 20 125/72 93 02/27/17 15:00 56 02/27/17 14:00 57 02/27/17 13:00 52 02/27/17 11:00 49 02/27/17 11:00 97.8 50 20 113/66 99 02/27/17 10:00 56 02/27/17 09:00 57 02/27/17 08:00 64 02/27/17 07:00 49 02/27/17 07:00 97.5 54 20 140/84 100 02/27/17 06:00 50 02/27/17 05:00 48 02/27/17 04:00 59 02/27/17 03:00 50 02/27/17 03:00 97.5 51 12 126/70 99 02/27/17 02:00 54 02/27/17 01:00 52 02/27/17 00:00 50 02/26/17 23:00 52 02/26/17 23:00 97.6 56 18 127/63 95 02/26/17 22:00 50 02/26/17 21:00 54 02/26/17 20:00 52 02/26/17 19:00 97.7 56 12 120/58 96 02/26/17 19:00 52 02/26/17 18:00 57 02/26/17 17:00 54 I/O 02/26/17 02/26/17 02/26/17 02/27/17 02/27/17 02/27/17 07:00 15:00 23:00 07:00 15:00 23:00 Intake Total 480 ml 840 ml 240 ml Output Total 700 ml 575 ml 350 ml Balance -220 ml 265 ml -110 ml Intake Oral 480 ml 840 ml 240 ml Output Urine Total 700 ml 575 ml 350 ml # Bowel Movements 1 Result Diagram: 02/26/17 0600 02/26/17 0600 Imaging Last Impressions Lower Extremity Ultrasound 02/23/17 0000 Signed Impressions: Service Date/Time: Thursday, February 23, 2017 18:19 - CONCLUSION: 1. Right greater saphenous vein surgically absent for previous bypass. Measurements on the left given above. Eugene Rice MD Chest CT 02/23/17 0000 Signed Impressions: Service Date/Time: Thursday, February 23, 2017 20:11 - CONCLUSION: 1. Small right-sided pleural effusion. Minimal groundglass opacity in the lungs that may represent minimal edema. Cardiomegaly. No pericardial effusion. 2. Severe coronary artery disease. Aortic valvular calcifications present. No thoracic aortic aneurysm. Eugene Rice MD Carotid Artery Ultrasound 02/23/17 0000 Signed Impressions: Service Date/Time: Thursday, February 23, 2017 18:44 - CONCLUSION: 1. Sonographic findings are most characteristic of a hemodynamically significant stenosis near the right carotid bifurcation, likely greater than 80%% stenosis. Eugene Rice MD Chest X-Ray 02/22/17 1156 Signed Impressions: Service Date/Time: February 11:58 - CONCLUSION: 1. Post median sternotomy changes and cardiomegaly. Exam is stable compared to previous. Ken Juares MD Objective Remarks awake and alert, NAD anicteric soft carotid bruit regular rhythm, 3/6 systolic murmur left sternal border abdomen soft, nontender extremities no edema neuro exam- non focal A/P Problem List: (1) Systolic and diastolic CHF, acute on chronic ICD Code: I50.43 Status: Acute (2) CAD (coronary artery disease) ICD Code: I25.10 Status: Acute (3) Aortic stenosis ICD Code: I35.0 Status: Acute Assessment and Plan 76-year-old male with acute exacerbation of systolic and diastolic CHF. Patient also has aortic stenosis and multiple vessel coronary artery disease. Probable issues with compliance with medications who presented mainly with shortness of breath on exertion with associated chest tightness. Acute on chronic diastolic and systolic CHF,- clinically improving. Aortic stenosis: -Elevated BNP. Combination of CHF, aortic stenosis and ischemia from CAD. - Continue metoprolol, oral Lasix, Ranexa, Imdur Decrease Metorpolol to 75 mg po bid- HR- occasionally in the high 40s- 50s Repeat 2-D echocardiogram per cable installation manager's read shows LVEF of 35-40%. Moderate to severe aortic stenosis. CT surgery following. aortic valve replacement -- medical management - stress Echo - confirmed low EF -continue medical management with Lasix, - consider add Zeke- once creatinine stabilizes and ff BMP- as OP- through Dr. Chicas Chest pain/Coronary artery disease: Patient with known CAD, multivessel disease. No acute changes on EKG Right carotid stenosis- 80% - CT surgery following. Considering CABG and aortic valve replacement.- possible in the future- OP ff up. medical management for now Continue isosorbide mononitrate, Ranexa, nitroglycerin as needed - OP ff up with Dr. Veloz - no history of CVA - on Plavix - Diabetes Mellitus - New diagnosis HgB A1C 7.4 SSI with accuchecks. He will need a modified diet and probably oral hypoglycemic agent on discharge/. Hypertension - Continue amlodipine, metoprolol as above. Hyperlipidemia Continue statin Probable issues with compliance: - Based on discussion with the patient's daughter. He may benefit from home health to help ensure he is taking his medications correctly and adhering to a heart failure regimen. CKD: Renal function stable. Continue to monitor. Avoid nephrotoxins. Problem Qualifiers (1) CAD (coronary artery disease): Qualified Code: I25.10 - Coronary artery disease, angina presence unspecified, unspecified vessel or lesion type, unspecified whether [place] or transplanted heart (2) Aortic stenosis: Qualified Code: I35.0 - Aortic valve stenosis, unspecified etiology Tristan Garces MD Feb 27, 2017 16:30 Qualified Code: I35.0 - Aortic valve stenosis, unspecified etiology Tristan Garces MD Feb 27, 2017 16:30
[2017-02-27] MEDS: SIMETHICONE 80 MG CHEWABLE TAB CHEW SCH ×2 (17:59→21:58)
--- NOTE | 2017-02-27 18:18 | EKG ---
Date Performed: 02/27/2017 Time Performed: 11:43:08 PTAGE: 76 years EKG: BASELINE ARTIFACT PRESENT. Sinus bradycardia with borderline 1st degree A-V block. Prolonge d QT interval LVH with secondary repolarization abnormality Inferior/lateral ST-T changes are probabl y due to ventricular hypertrophy Abnormal ECG NO SIGNIFICANT CHANGE FROM PRIOR ELECTROCARDIOGRAM. PREVIOUS TRACING : 02/22/2017 12.52 DOCTOR: Justin Chilel Interpretating Date/Time 02/27/2017 18:16:44
[2017-02-28] VITALS (10 sets, daily range): BP systolic 102–115; BP diastolic 57–69; PULSE 48–60; RESP 12–17; TEMP 97.2–98.9; O2SAT 97–100
[2017-02-28] MEDS: INSULIN ASPART SUPPLEMENTAL SCALE SQ SCH ×3 (06:00→16:00)
[2017-02-28 06:50] LABS: HEMATOCRIT 34.7 % (39.0-51.0); MEAN CELL VOLUME 86.8 FL (80.0-100.0); MEAN CORPUSCULAR HEMOGLOBIN 28.5 PG (27.0-34.0); MEAN CORPUSCULAR HGB CONC 32.9 % (32.0-36.0); PLATELET COUNT 183 TH/MM3 (150-450); RED CELL DISTRIBUTION WIDTH 14.7 % (11.6-17.2); REVIEW FLAG FINAL; WHITE BLOOD COUNT 7.9 TH/MM3 (4.0-11.0)
[2017-02-28] MEDS: PANTOPRAZOLE SOD 40 MG DELAYED RELEASE TAB PO SCH (08:49)
[2017-02-28] MEDS: ASPIRIN EC 81 MG TABEC PO SCH (08:49)
[2017-02-28] MEDS: RANOLAZINE 500 MG EXTENDED RELEASE TAB PO SCH (08:49)
[2017-02-28] MEDS: ATORVASTATIN 20 MG TAB PO SCH (08:49)
[2017-02-28] MEDS: POTASSIUM CHLORIDE 20 MEQ CONTROLLED RELEASE TAB PO SCH (08:49)
[2017-02-28] MEDS: amLODIPine BESYLATE 5 MG TAB PO SCH (08:49)
[2017-02-28] MEDS: ISOSORBIDE MONONITRATE 20 MG TAB PO SCH (08:49)
[2017-02-28] MEDS: FINASTERIDE 5 MG TAB PO SCH (08:49)
[2017-02-28] MEDS: METOPROLOL TARTRATE 100 MG TAB PO SCH (08:49)
[2017-02-28] MEDS: FUROSEMIDE 40 MG TAB PO SCH (08:49)
[2017-02-28] MEDS: SIMETHICONE 80 MG CHEWABLE TAB CHEW SCH ×2 (08:53→12:36)
[2017-02-28] MEDS ORDERED: CLOPIDOGREL 75 MG TAB PO SCH (09:00)
[2017-02-28] MEDS ORDERED: LISINOPRIL 5 MG TAB PO SCH (09:00)
[2017-02-28] MEDS: SODIUM CHLORIDE 0.9% FLUSH 10 ML FLUSH IV FLUSH SCH (09:10)
--- NOTE | 2017-02-28 09:21 | HHI.PR ---
Subjective Remarks patient up and ambulating no chest pains or shortness of breath Objective Vitals Vital Signs Date Time Temp Pulse Resp B/P Pulse Ox O2 Delivery O2 Flow Rate FiO2 02/28/17 08:55 98.9 54 15 102/60 100 02/28/17 06:00 58 02/28/17 05:00 48 02/28/17 04:00 52 02/28/17 03:00 55 02/28/17 03:00 97.5 53 12 109/59 97 02/28/17 02:00 50 02/28/17 01:00 48 02/28/17 00:00 54 02/27/17 23:00 97.2 55 16 114/50 98 02/27/17 23:00 49 02/27/17 22:00 52 02/27/17 20:00 54 02/27/17 19:00 97.4 55 18 131/81 96 02/27/17 19:00 55 02/27/17 18:00 52 02/27/17 17:00 58 02/27/17 16:00 54 02/27/17 15:00 97.4 56 20 125/72 93 02/27/17 15:00 56 02/27/17 14:00 57 02/27/17 13:00 52 02/27/17 11:00 49 02/27/17 11:00 97.8 50 20 113/66 99 02/27/17 10:00 56 I/O 02/27/17 02/27/17 02/27/17 02/28/17 02/28/17 02/28/17 07:00 15:00 23:00 07:00 15:00 23:00 Intake Total 240 ml 600 ml 480 ml Output Total 350 ml 525 ml Balance -110 ml 600 ml -45 ml Intake Oral 240 ml 600 ml 480 ml Output Urine Total 350 ml 525 ml # Voids 5 Result Diagram: 02/28/17 0525 02/26/17 0600 Imaging Last Impressions Lower Extremity Ultrasound 02/23/17 0000 Signed Impressions: Service Date/Time: Thursday, February 23, 2017 18:19 - CONCLUSION: 1. Right greater saphenous vein surgically absent for previous bypass. Measurements on the left given above. Eugene Rice MD Chest CT 02/23/17 0000 Signed Impressions: Service Date/Time: Thursday, February 23, 2017 20:11 - CONCLUSION: 1. Small right-sided pleural effusion. Minimal groundglass opacity in the lungs that may represent minimal edema. Cardiomegaly. No pericardial effusion. 2. Severe coronary artery disease. Aortic valvular calcifications present. No thoracic aortic aneurysm. Eugene Rice MD Carotid Artery Ultrasound 02/23/17 0000 Signed Impressions: Service Date/Time: Thursday, February 23, 2017 18:44 - CONCLUSION: 1. Sonographic findings are most characteristic of a hemodynamically significant stenosis near the right carotid bifurcation, likely greater than 80%% stenosis. Eugene Rice MD Chest X-Ray 02/22/17 1156 Signed Impressions: Service Date/Time: February 11:58 - CONCLUSION: 1. Post median sternotomy changes and cardiomegaly. Exam is stable compared to previous. Ken Juares MD Objective Remarks awake and alert, NAD anicteric soft carotid bruit regular rhythm, 3/6 systolic murmur left sternal border abdomen soft, nontender extremities no edema neuro exam- non focal A/P Problem List: (1) Systolic and diastolic CHF, acute on chronic ICD Code: I50.43 Status: Acute (2) CAD (coronary artery disease) ICD Code: I25.10 Status: Acute (3) Aortic stenosis ICD Code: I35.0 Status: Acute Assessment and Plan 76-year-old male with acute exacerbation of systolic and diastolic CHF. Patient also has aortic stenosis and multiple vessel coronary artery disease. Probable issues with compliance with medications who presented mainly with shortness of breath on exertion with associated chest tightness. Acute on chronic diastolic and systolic CHF,- clinically improving. Aortic stenosis: -Elevated BNP. Combination of CHF, aortic stenosis and ischemia from CAD. - Continue metoprolol, oral Lasix, Ranexa, Imdur Decrease Metorpolol to 75 mg po bid- HR- occasionally in the high 40s- 50s Repeat 2-D echocardiogram per neuropsychology director's read shows LVEF of 35-40%. Moderate to severe aortic stenosis. CT surgery following. aortic valve replacement -- medical management - stress Echo - confirmed low EF -continue medical management with Lasix, - consider add Zeke- once creatinine stabilizes - Dr. Juan Francisco pedersen Chest pain/Coronary artery disease: Patient with known CAD, multivessel disease. No acute changes on EKG Right carotid stenosis- 80% - CT surgery following. Considering CABG and aortic valve replacement.- possible in the future- OP ff up. medical management for now Continue isosorbide mononitrate, Ranexa, nitroglycerin as needed - OP ff up with Dr. Veloz - no history of CVA - on Plavix - Diabetes Mellitus - New diagnosis HgB A1C 7.4 SSI with accuchecks. He will need a modified diet and probably oral hypoglycemic agent on discharge/. Hypertension - Continue amlodipine, metoprolol as above. Hyperlipidemia Continue statin Probable issues with compliance: - Based on discussion with the patient's daughter. He may benefit from home health to help ensure he is taking his medications correctly and adhering to a heart failure regimen. CKD: stage 3. non oliguric. . Avoid nephrotoxins. FF BMP as OP Problem Qualifiers (1) CAD (coronary artery disease): Qualified Code: I25.10 - Coronary artery disease, angina presence unspecified, unspecified vessel or lesion type, unspecified whether [place] or transplanted heart (2) Aortic stenosis: Qualified Code: I35.0 - Aortic valve stenosis, unspecified etiology Tristan Garces MD Feb 28, 2017 09:21
[2017-02-28] MEDS ORDERED: glyBURIDE 2.5 MG TAB PO SCH (09:30)
[2017-02-28 11:54] LABS: BICARBONATE 26.6 MEQ/L (21.0-32.0); POTASSIUM 4.7 MEQ/L (3.5-5.1)
[2017-02-28] MEDS ORDERED: SODIUM CHLORID 0.9% 500 ML INJ 500 ML IV SCH (14:00)
[2017-02-28] MEDS ORDERED: Simethicone Chew CHEW (18:11)
[2017-02-28] MEDS ORDERED: FURO1TAB62 PO (18:19)
[2017-02-28] MEDS ORDERED: GLYB2.5T3 PO (18:20)
--- NOTE | 2017-02-28 18:22 | HHI.DS ---
Discharge Summary Admission Date Feb 22, 2017 at 14:13 Discharge Date: Feb 28, 2017 Admitting Diagnosis Unstable Angina, CHF (1) Systolic and diastolic CHF, acute on chronic ICD Code: I50.43 Diagnosis: Principal (2) CAD (coronary artery disease) ICD Code: I25.10 Diagnosis: Principal (3) Aortic stenosis ICD Code: I35.0 Diagnosis: Secondary Procedures none Brief History - From Admission 76-year-old male with a medical history significant for coronary artery disease status post CABG, mild to moderate aortic stenosis, congestive heart failure presented to the hospital with complaint of shortness of breath and chest pressure with minimal exertion. Patient and his daughter reports that he can barely walk across the room without getting severely short of breath. He reported associated tightness in his chest. The patient was admitted in the hospital about 2 weeks ago for similar complaint. He underwent a heart catheterization at that time which showed multiple vessel and diffuse CAD. Small vessels. No stents were placed. Patient reports since he was discharged home he was feeling better, and losing some water weight. However his symptoms have been worsening over the past few days. This time he denies increased in lower extremity swelling. I discussed with his daughter at bedside and the patient did not deny that he sometimes does not take his medications as prescribed. Sometimes he does not take them at all. He also seems to minimize his alcohol intake intake behavior. Currently he reports feeling better laying in the bed at rest. Cardiology, Dr. Chicas has been consulted from the emergency room who recommended heparin drip and will consult on the patient. CBC/BMP: 02/28/17 0525 02/28/17 1105 Significant Findings Laboratory Tests Test 02/26/17 02/28/17 02/28/17 06:00 05:25 11:05 Red Blood Count 4.22 MIL/MM3 4.00 MIL/MM3 (4.50-5.90) (4.50-5.90) Hemoglobin 12.0 GM/DL 11.4 GM/DL (13.0-17.0) (13.0-17.0) Hematocrit 36.7 % 34.7 % (39.0-51.0) (39.0-51.0) Activated Partial 57.1 SEC Thromboplast Time (24.3-30.1) Sodium Level 135 MEQ/L 134 MEQ/L (136-145) (136-145) Blood Urea Nitrogen 32 MG/DL (7-18) 46 MG/DL (7-18) Creatinine 1.64 MG/DL 2.05 MG/DL (0.60-1.30) (0.60-1.30) Estimat Glomerular Filtration 41 ML/MIN (>89) 32 ML/MIN (>89) Rate Random Glucose 141 MG/DL 169 MG/DL (74-106) (74-106) Imaging Last Impressions Lower Extremity Ultrasound 02/23/17 0000 Signed Impressions: Service Date/Time: Thursday, February 23, 2017 18:19 - CONCLUSION: 1. Right greater saphenous vein surgically absent for previous bypass. Measurements on the left given above. Eugene Rice MD Chest CT 02/23/17 0000 Signed Impressions: Service Date/Time: Thursday, February 23, 2017 20:11 - CONCLUSION: 1. Small right-sided pleural effusion. Minimal groundglass opacity in the lungs that may represent minimal edema. Cardiomegaly. No pericardial effusion. 2. Severe coronary artery disease. Aortic valvular calcifications present. No thoracic aortic aneurysm. Eugene Rice MD Carotid Artery Ultrasound 02/23/17 0000 Signed Impressions: Service Date/Time: Thursday, February 23, 2017 18:44 - CONCLUSION: 1. Sonographic findings are most characteristic of a hemodynamically significant stenosis near the right carotid bifurcation, likely greater than 80%% stenosis. Eugene Rice MD Chest X-Ray 02/22/17 1156 Signed Impressions: Service Date/Time: February 11:58 - CONCLUSION: 1. Post median sternotomy changes and cardiomegaly. Exam is stable compared to previous. Ken Juares MD PE at Discharge awake and alert, NAD anicteric soft carotid bruit regular rhythm, 3/6 systolic murmur left sternal border abdomen soft, nontender extremities no edema neuro exam- non focal Pt update on day of discharge ambulating around good readings no chest pain or shortness of breath voiding Hospital Course 76-year-old male with acute exacerbation of systolic and diastolic CHF. Patient also has aortic stenosis and multiple vessel coronary artery disease. Probable issues with compliance with medications who presented mainly with shortness of breath on exertion with associated chest tightness. Acute on chronic diastolic and systolic CHF,- clinically improving. Aortic stenosis: -Elevated BNP. Combination of CHF, aortic stenosis and ischemia from CAD. - Continue metoprolol, oral Lasix, Ranexa, Imdur Decrease Metorpolol to 75 mg po bid- HR- occasionally in the high 40s- 50s Repeat 2-D echocardiogram per experimental psychologist's read shows LVEF of 35-40%. Moderate to severe aortic stenosis. CT surgery following. aortic valve replacement -- medical management - stress Echo - confirmed low EF -continue medical management with Lasix, - consider add Zeke- once creatinine stabilizes - Dr. Chicas ff Chest pain/Coronary artery disease: Patient with known CAD, multivessel disease. No acute changes on EKG Right carotid stenosis- 80% - CT surgery following. Considering CABG and aortic valve replacement.- possible in the future- OP ff up. medical management for now Continue isosorbide mononitrate, Ranexa, nitroglycerin as needed - OP ff up with Dr. Veloz - no history of CVA - on Plavix - Diabetes Mellitus - New diagnosis HgB A1C 7.4 SSI with accuchecks. He will need a modified diet and probably oral hypoglycemic agent on discharge/. Hypertension - Continue amlodipine, metoprolol as above. Hyperlipidemia Continue statin Probable issues with compliance: - Based on discussion with the patient's daughter. He may benefit from home health to help ensure he is taking his medications correctly and adhering to a heart failure regimen. CKD: stage 3. non oliguric. . Avoid nephrotoxins. FF BMP as OP Problem Qualifiers Pt Condition on Discharge: Stable Discharge Disposition: Discharge Home Discharge Time: <= 30 minutes Discharge Instructions DIET: Follow Instructions for: Heart Healthy Diet, Diabetic Diet Speech Therapy-Diet Recommends: Regular Activities you can perform: Weight Bearing as Ace Activities to Avoid: Strenuous Activity Follow up Referrals: Cardiology - 03/05/17 with elvia PCP Follow-up - 03/05/17 with say New Orders: COMP MET PROF (CMP) - 03/02/17 New Medications: Furosemide (Lasix) 20 Mg Tab 20 MG PO DAILY CAD #30 Ref 0 TAB Glyburide (Glyburide) 2.5 Mg Tab 1.25 MG PO DAILYAC DM Days 30 TAB ([Simethicone Chew]) 80 MG CHEW 80 MG CHEW PCHS gerd Days 14 TAB.CHEW Continued Medications: Albuterol 8.5 GM Inh (Proair Hfa 8.5 GM Inh) 90 Mcg/Act Aer 2 PUFF INH Q4-6H 108 mcg/actuation PRN SHORTNESS OF BREATH #1 Ref 0 INHALER Amlodipine (Amlodipine) 5 Mg Tab 5 MG PO DAILY Blood Pressure Management #30 Ref [address] (Aspir-81) 81 Mg Tabdr 81 MG PO DAILY Clopidogrel (Clopidogrel) 75 Mg Tab 75 MG PO DAILY Blood Clot Prevention #30 Ref 0 TAB Finasteride (Proscar) 5 Mg Tab 5 MG PO DAILY Do not crush. Manage Prostate Problems #30 Ref 0 TAB Isosorbide Mononitrate (Isosorbide Mononitrate) 20 Mg Tab 30 MG PO DAILY Take 2 doses 7 hours apart. Prevent Chest Pain #60 Ref 0 TAB Metoprolol Tartrate (Metoprolol Tartrate) 100 Mg Tab 100 MG PO BID #60 Ref 0 TAB Nitroglycerin SL (Nitrostat SL) 0.4 Mg Subl 0.4 MG SL DIRECTED 1 tablet under the tongue as needed for chest pain. Repeat every 5 minutes for a total of 3 DOSES or call 911 if NO relief. PRN CHEST PAIN #100 Ref 0 TAB.SL Potassium Chloride Microencaps (Potassium Chloride Microencaps) 20 Meq Tab 20 MEQ PO DAILY #30 TAB Ranolazine ER 12 HR (Ranexa ER 12 HR) 500 Mg Tab 500 MG PO BID Chest Pain #60 Ref 0 TAB Rosuvastatin (Rosuvastatin) 10 Mg Tab 10 MG PO DAILY Cholesterol Management Ref 0 TAB Tristan Garces MD Feb 28, 2017 18:21
[2017-02-28] MEDS ORDERED: BLOOD GLUCOSE M1 KIT (18:27)
--- NOTE | 2017-02-28 22:03 | PD.CARD.PN ---
Subjective Subjective Remarks Has positive dobutamine study for significant Objective Vital Signs / I&O Vital Signs Date Time Temp Pulse Resp B/P Pulse Ox O2 Delivery O2 Flow Rate FiO2 02/28/17 16:13 97.2 60 17 115/69 97 02/28/17 12:17 97.9 49 15 103/57 98 02/28/17 08:55 98.9 54 15 102/60 100 02/28/17 06:00 58 02/28/17 05:00 48 02/28/17 04:00 52 02/28/17 03:00 55 02/28/17 03:00 97.5 53 12 109/59 97 02/28/17 02:00 50 02/28/17 01:00 48 02/28/17 00:00 54 02/27/17 23:00 97.2 55 16 114/50 98 02/27/17 23:00 49 02/27/17 22:00 52 I/O 02/27/17 02/27/17 02/27/17 02/28/17 02/28/17 02/28/17 07:00 15:00 23:00 07:00 15:00 23:00 Intake Total 240 ml 600 ml 480 ml Output Total 350 ml 525 ml Balance -110 ml 600 ml -45 ml Intake Oral 240 ml 600 ml 480 ml Output Urine Total 350 ml 525 ml # Voids 5 Physical Exam GENERAL: Well-nourished, well-developed patient in no apparent distress.No more chest pain SKIN: Warm and dry. NECK: JVD normal - less than or equal to 5 cm H20. CARDIOVASCULAR: Regular rate and rhythm systolic murmur RESPIRATORY: Normal breath sounds - equal bilaterally. No accessory muscle use. No wheezes, rales or rubs. PERIPHERY: No cyanosis Laboratory Laboratory Tests Test 02/28/17 02/28/17 05:25 11:05 White Blood Count 7.9 TH/MM3 Red Blood Count 4.00 MIL/MM3 Hemoglobin 11.4 GM/DL Hematocrit 34.7 % Mean Corpuscular Volume 86.8 FL Mean Corpuscular Hemoglobin 28.5 PG Mean Corpuscular Hemoglobin 32.9 % Concent Red Cell Distribution Width 14.7 % Platelet Count 183 TH/MM3 Mean Platelet Volume 10.6 FL Sodium Level 134 MEQ/L Potassium Level 4.7 MEQ/L Chloride Level 100 MEQ/L Carbon Dioxide Level 26.6 MEQ/L Anion Gap 7 MEQ/L Blood Urea Nitrogen 46 MG/DL Creatinine 2.05 MG/DL Estimat Glomerular Filtration 32 ML/MIN Rate Random Glucose 169 MG/DL Calcium Level 9.7 MG/DL Assessment and Plan Problem List: (1) CAD (coronary artery disease) (2) Hx of CABG (3) Aortic stenosis Assessment and Plan: Significant probable TAVR candidate as per Dr Veloz. Will reconsider Stent of SVG if pt becomes symptomatic. However runoff is very small. Suspect component of CHF as major cause of symptoms. Appreciate Dr Veloz input.. (4) Congestive heart failure Assessment and Plan Try medical management for now, as pt much better. Will discuss with Dr Veloz Problem Qualifiers (1) CAD (coronary artery disease): Qualified Code: I25.10 - Coronary artery disease, angina presence unspecified, unspecified vessel or lesion type, unspecified whether [place] or transplanted heart (2) Aortic stenosis: Qualified Code: I35.0 - Aortic valve stenosis, unspecified etiology (3) Congestive heart failure: Qualified Code: I50.9 - Acute on chronic congestive heart failure, unspecified congestive heart failure type Dave Chicas MD Feb 28, 2017 22:03
== END 2017-02-28 18:57 | disposition home or self-care (01) | DRG 291 ==
LOC: NEPE 11:27 → NEDA 14:13 → HCIS 17:12
PROVIDERS: ADMIT Internal Medicine; ATTEND Internal Medicine
DX: I13.0 Hypertensive heart and chronic kidney disease with heart failure and stage 1 through stage 4 chronic kidney disease, or unspecified chronic kidney disease (principal); I50.43 Acute on chronic combined systolic (congestive) and diastolic (congestive) heart failure; I25.110 Atherosclerotic heart disease of native coronary artery with unstable angina pectoris; N18.3 Chronic kidney disease, stage 3 (moderate); E11.9 Type 2 diabetes mellitus without complications; I35.0 Nonrheumatic aortic (valve) stenosis; E78.5 Hyperlipidemia, unspecified; M10.9 Gout, unspecified; Z95.1 Presence of aortocoronary bypass graft; Z86.73 Personal history of transient ischemic attack (TIA), and cerebral infarction without residual deficits; Z87.891 Personal history of nicotine dependence
CPT/HCPCS: 71010; 71250; 80048; 80053; 81001; 82550; 82948; 83036; 83735; 83880; 84443; 84484; 85025; 85027; 85610; 85730; 87641; 93005; 93306; 93350; 93880; 93970; 93998; 94010; J1250; J1644; J1815; J7040

== ENCOUNTER 2017-03-03 20:42 | Inpatient (IN) | payer MEDICARE ==
[~2017-03-03] VITALS: Ht 170.2 cm; Wt 81.0 kg
[~2017-03-03 20:42] MED LIST changes: -AMLO10TA2 PO; +AMLO5TAB2 PO; +BLOOD GLUCOSE M1 KIT; +FURO1TAB62 PO; -FURO20TA PO; +GLYB2.5T3 PO; +Simethicone Chew CHEW
[2017-03-03 20:45] VITALS: O2SAT 98
[2017-03-03 20:46] VITALS: BP 128/73; PULSE 60; RESP 21; TEMP 97.4; O2SAT 96
[2017-03-03] MEDS ORDERED: NITROGLYCERIN 2% OINT 1 GM PACKET TOPICAL ONE (21:00)
[2017-03-03] MEDS ORDERED: RESP: ALBUTEROL 2.5 MG/IPRATROPIUM 0.5 MG NEB (SCH) INH ONE (21:00)
[2017-03-03] MEDS ORDERED: SODIUM CHLORIDE 0.9% FLUSH 10 ML FLUSH IVF PRN ×2 (21:00→22:15)
--- NOTE | 2017-03-03 21:16 | RADRPT ---
EXAM DATE/TIME: 03/03/2017 21:07 [facility] COMPARISON: CHEST SINGLE AP, February 22, 2017, 11:58. INDICATIONS : Shortness of breath. MEDICAL HISTORY : Myocardial infarction. Congestive heart failure. Hypercholesterolemia. Hearing loss.Cerebrovascular a ccident. Coronary artery disease. Hypertension. SURGICAL HISTORY : Coronary artery stent. CABG. Bowel repair. Right leg skin graft. ENCOUNTER: Initial ACUITY: 1 day PAIN SCORE: 0/10 LOCATION: Bilateral chest FINDINGS: Perihilar and basilar pulmonary edema present. No large effusion. No pneumothorax. Mild cardiomegaly is stable. Patient has had previous median sternotomy. CONCLUSION: Mild failure. Dain Moeller MD on March 03, 2017 at 21:11 Board Certified Radiologist. This report was verified electronically.
[2017-03-03 21:23] LABS: BLOOD GAS CARBOXYHEMOGLOBIN 1.7 % (0-4); BLOOD GAS HCO3 21 mmol/L (22-26); BLOOD GAS METHEMOGLOBIN 0.8 % (0-2); BLOOD GAS O2 HGB SATURATION 93 % (90-100); BLOOD GAS OXYGEN CONTENT 16.2 Vol % (12.0-20.0); BLOOD GAS PCO2 31 mmHg (38-42); BLOOD GAS PO2 76 mmHG (61-120); BLOOD GAS TOTAL HGB 12.4 G/DL (12.0-16.0); TEMP CORR TO 98.6
[2017-03-03 21:23] LABS: AUTOMATED NEUTROPHIL # 10.8 TH/MM3 (1.8-7.7); BASOPHIL % 0.3 % (0.0-2.0); EOSINOPHIL # 0.3 TH/MM3 (0-0.4); HEMATOCRIT 37.7 % (39.0-51.0); HEMO FLAGS DIFF FINAL; LYMPHOCYTE # 1.3 TH/MM3 (1.0-4.8); MEAN CELL VOLUME 87.3 FL (80.0-100.0); MEAN CORPUSCULAR HEMOGLOBIN 29.1 PG (27.0-34.0); MEAN CORPUSCULAR HGB CONC 33.4 % (32.0-36.0); MONO % 6.6 % (0.0-8.0); NEUT % 81.1 % (16.0-70.0); PLATELET COUNT 229 TH/MM3 (150-450); RED BLOOD COUNT 4.32 MIL/MM3 (4.50-5.90); RED CELL DISTRIBUTION WIDTH 15.4 % (11.6-17.2); WHITE BLOOD COUNT 13.3 TH/MM3 (4.0-11.0)
[2017-03-03 21:24] LABS: CRITICAL VALUE NO; DRAW SITE RT RADIAL; FIO2 40 %; NUMBER OF ARTERIAL PUNCTURES 1; OXYGEN DEVICE BiPAP; STAT YES; ULNAR PULSE PRESENT; VENT SETTINGS IPAP10/EPAP5
[2017-03-03 21:35] LABS: APTT (PATIENT) 26.7 SEC (24.3-30.1); PROTHROMBIN TIME - PATIENT 11.5 SEC (9.8-11.6)
[2017-03-03 21:42] LABS: ALT (GPT) 51 U/L (12-78); ANION GAP 12 MEQ/L (5-15); AST (GOT) 25 U/L (15-37); BICARBONATE 20.4 MEQ/L (21.0-32.0); BLOOD UREA NITROGEN 51 MG/DL (7-18); CHLORIDE 101 MEQ/L (98-107); GLOMERULAR FILTRATION RATE 34 ML/MIN (>89); MAGNESIUM 2.4 MG/DL (1.5-2.5); POTASSIUM 4.2 MEQ/L (3.5-5.1); SODIUM (NA) 133 MEQ/L (136-145); TOTAL BILIRUBIN ADULT 0.8 MG/DL (0.2-1.0)
[2017-03-03 21:44] LABS: ALKALINE PHOSPHATASE 83 U/L (45-117)
[2017-03-03 21:46] LABS: CREATINE KINASE 83 U/L (39-308)
--- NOTE | 2017-03-03 21:47 | PD ---
HPI Chief Complaint: Respiratory Symptoms Time Seen by Provider: 20:49 Travel History International Travel<30 days: No Contact w/Intl Traveler<30days: No Traveled to known affect area: No History of Present Illness HPI 76-year-old male presents to the emergency department by EMS transport from a local movie theater where he started to develop shortness of breath. Patient reports that he was just hospitalized approximate 1 week ago with an episode of CHF or edema. Patient is followed by primary care provider Dr. Beth lowe and bacon skin lifter Dr. Chicas. According to medical records patient underwent recent cardiac catheterization by his bacon skin lifter Dr. Chicas, 02/06/17; mild to moderate aortic stenosis by heart catheter EF 40%; severe three-vessel coronary artery disease occluded vein graft to the right coronary with evidence of prior embolization of the vein graft to the right coronary; evidence of stent placement to right coronary which is patent; evidence of intermediate ramus being graft with 90% stenosis and very poor distal vessels; right coronary artery large vessel some diffuse disease 25-40%; posterior descending artery tortuous; posterior lateral branch with previously placed finger rash with evidence of embolization of being graft at its midsection; left internal mammary artery large vessel; and medium-size LAD with good anastomosis. Patient is determined not to be a TAB R candidate and medical management was planned. Patient was subsequently admitted for unstable angina and bony edema ; at that time patient was seen by his bacon skin lifter Dr. Chicas who indicated patient may need bypass surgery 22 branches of the right coronary and it was recommended that patient be evaluated by Dr. Veloz. PFSH Past Medical History Cardiac Catheterization: Yes Cardiovascular Problems: Yes (CAD, CABG, STENTS, CO, CHF) High Cholesterol: Yes Congestive Heart Failure: Yes ([place]) Cerebrovascular Accident: Yes (CVA) Coronary Artery Disease: Yes Diabetes: No Diminished Hearing: Yes Endocrine: No Gout: Yes Hypertension: Yes Implanted Vascular Access Dvce: No Musculoskeletal: No Respiratory: Yes (PULMONARY EDEMA) Myocardial Infarction: Yes (x1) Tetanus Vaccination: Unknown Influenza Vaccination: No Past Surgical History Abdominal Surgery: Yes (twisted bowel repair) Coronary Artery Bypass Graft: Yes (triple bypass) Coronary Stent: Yes (one stent in place) Other Surgery: Yes Social History Alcohol Use: Yes (occas. wine) Tobacco Use: No (hx of cigs ) Substance Use: No Allergies-Medications (Allergen,Severity, Reaction): Coded Allergies: No Known Allergies (Unverified , 03/03/17) Reported Meds & Prescriptions Reported Meds & Active Scripts Active Blood Glucose Monitoring W/Device (Device) 1 Kit Kit 1 Kit .ROUTE DIRECTED check FS pre breakfast and predinner and record and bring to PCP office Glyburide 2.5 Mg Tab 1.25 Mg PO DAILYAC 30 Days Lasix (Furosemide) 20 Mg Tab 20 Mg PO DAILY [Simethicone Chew] 80 MG Chew 80 Mg CHEW PCHS 14 Days Proair Hfa 8.5 GM Inh (Albuterol Sulfate) 90 Mcg/Act Aer 2 Puff INH Q4-6H PRN 108 mcg/actuation Potassium Chloride Microencaps 20 Meq Tab 20 Meq PO DAILY Reported Amlodipine (Amlodipine Besylate) 5 Mg Tab 5 Mg PO DAILY Isosorbide Mononitrate 20 Mg Tab 30 Mg PO DAILY Take 2 doses 7 hours apart. Aspir-81 (Aspirin) 81 Mg Tabdr 81 Mg PO DAILY Nitrostat SL (Nitroglycerin) 0.4 Mg Subl 0.4 Mg SL DIRECTED PRN 1 tablet under the tongue as needed for chest pain. Repeat every 5 minutes for a total of 3 DOSES or call 911 if NO relief. Proscar (Finasteride) 5 Mg Tab 5 Mg PO DAILY Do not crush. Rosuvastatin (Rosuvastatin Calcium) 10 Mg Tab 10 Mg PO DAILY Clopidogrel (Clopidogrel Bisulfate) 75 Mg Tab 75 Mg PO DAILY Metoprolol Tartrate 100 Mg Tab 100 Mg PO BID Ranexa ER 12 HR (Ranolazine) 500 Mg Tab 500 Mg PO BID Review of Systems Except as stated in HPI: all other systems reviewed are Neg General / Constitutional: No: Fever, Chills HENT: No: Congestion Cardiovascular: No: Chest Pain or Discomfort, Diaphoresis Respiratory: Positive: Shortness of Breath Gastrointestinal: No: Nausea, Vomiting, Abdominal Pain Genitourinary: No: Flank Pain Musculoskeletal: No: Myalgias, Arthralgias, Cramping, Edema, Pain Skin: No Rash Neurologic: No: Weakness, Dizziness, Syncope, Focal Abnormalities, Coordination Problem Psychiatric: No: Anxiety Hematologic/Lymphatic: No: Easy Bruising Physical Exam Narrative GENERAL: Well-developed well-nourished male in no acute distress mild respiratory distress with BiPAP in place SKIN: Warm and dry. HEAD: Normocephalic. EYES: No scleral icterus. No injection or drainage. NECK: Supple, trachea midline. No JVD or lymphadenopathy. CARDIOVASCULAR: Regular rate and rhythm without murmurs, gallops, or rubs. RESPIRATORY: Breath sounds equal bilaterally few basilar inspiratory crackles rare end expiratory wheeze. No accessory muscle use. GASTROINTESTINAL: Abdomen soft, non-tender, nondistended. MUSCULOSKELETAL: No cyanosis, or edema. No calf swelling tenderness or Homans sign bilaterally; radial and dorsalis pedis pulses 2+ to palpation. BACK: Nontender without obvious deformity. No CVA tenderness. Data Data Last Documented VS Vital Signs Date Time Temp Pulse Resp B/P Pulse Ox O2 Delivery O2 Flow Rate FiO2 03/03/17 20:56 97 BiPAP 40 03/03/17 20:46 97.4 60 21 128/73 Orders Complete Blood Count With Diff (03/03/17 20:49) Comprehensive Metabolic Panel (03/03/17 20:49) B-Type Natriuretic Peptide (03/03/17 20:49) Act Partial Throm Time (Ptt) (03/03/17 20:49) Prothrombin Time / Inr (Pt) (03/03/17 20:49) Magnesium (Mg) (03/03/17 20:49) Ckmb (Isoenzyme) Profile (03/03/17 20:49) Troponin I (03/03/17 20:49) Iv Access Insert/Monitor (03/03/17 20:49) Electrocardiogram (03/03/17 20:49) Ecg Monitoring (03/03/17 20:49) Oximetry (03/03/17 20:49) Oxygen Administration (03/03/17 20:49) Chest, Single Ap (03/03/17 20:49) Sodium Chloride 0.9% Flush (Ns Flush) (03/03/17 21:00) Albuterol-Ipratropium Neb (Duoneb Neb) (03/03/17 21:00) Resp Bipap / Cpap Non Invas Vt (03/03/17 ) Nitroglycerin 2% Oint (Nitroglycerin 2% (03/03/17 21:00) Arterial Blood Gas (Abg) (03/03/17 21:11) Ventilation & Perfusion Scan (03/03/17 ) Admit Order (Ed Use Only) (03/03/17 ) ^ Saline Lock (03/03/17 22:07) Notify Dr: Other (03/03/17 22:07) Sodium Chloride 0.9% Flush (Ns Flush) (03/04/17 09:00) Sodium Chloride 0.9% Flush (Ns Flush) (03/03/17 22:15) Consult Cardiology (03/03/17 22:07) Resp Oxygen Jewel C Titrat 1-4 L (03/03/17 ) Labs Laboratory Tests Test 03/03/17 03/03/17 21:00 21:11 White Blood Count 13.3 TH/MM3 Red Blood Count 4.32 MIL/MM3 Hemoglobin 12.6 GM/DL Hematocrit 37.7 % Mean Corpuscular Volume 87.3 FL Mean Corpuscular Hemoglobin 29.1 PG Mean Corpuscular Hemoglobin 33.4 % Concent Red Cell Distribution Width 15.4 % Platelet Count 229 TH/MM3 Mean Platelet Volume 11.2 FL Neutrophils (%) (Auto) 81.1 % Lymphocytes (%) (Auto) 10.0 % Monocytes (%) (Auto) 6.6 % Eosinophils (%) (Auto) 2.0 % Basophils (%) (Auto) 0.3 % Neutrophils # (Auto) 10.8 TH/MM3 Lymphocytes # (Auto) 1.3 TH/MM3 Monocytes # (Auto) 0.9 TH/MM3 Eosinophils # (Auto) 0.3 TH/MM3 Basophils # (Auto) 0.0 TH/MM3 CBC Comment DIFF FINAL Differential Comment Prothrombin Time 11.5 SEC Prothromb Time International 1.0 RATIO Ratio Activated Partial 26.7 SEC Thromboplast Time Sodium Level 133 MEQ/L Potassium Level 4.2 MEQ/L Chloride Level 101 MEQ/L Carbon Dioxide Level 20.4 MEQ/L Anion Gap 12 MEQ/L Blood Urea Nitrogen 51 MG/DL Creatinine 1.92 MG/DL Estimat Glomerular Filtration 34 ML/MIN Rate Random Glucose 259 MG/DL Calcium Level 8.6 MG/DL Magnesium Level 2.4 MG/DL Total Bilirubin 0.8 MG/DL Aspartate Amino Transf 25 U/L (AST/SGOT) Alanine Aminotransferase 51 U/L (ALT/SGPT) Alkaline Phosphatase 83 U/L Total Creatine Kinase 83 U/L Troponin I 0.04 NG/ML B-Type Natriuretic Peptide 491 PG/ML Total Protein 7.5 GM/DL Albumin 3.8 GM/DL Blood Gas Puncture Site RT RADIAL Blood Gas Patient Temperature 98.6 Blood Gas HCO3 21 mmol/L Blood Gas Base Excess -3.0 mmol/L Blood Gas Oxygen Saturation 93 % Arterial Blood pH 7.44 Arterial Blood Partial 31 mmHg Pressure CO2 Arterial Blood Partial 76 mmHG Pressure O2 Arterial Blood Oxygen Content 16.2 Vol % Arterial Blood 1.7 % Carboxyhemoglobin Arterial Blood Methemoglobin 0.8 % Blood Gas Hemoglobin 12.4 G/DL Oxygen Delivery Device BiPAP Blood Gas Ventilator Setting IPAP10/EPAP5 Blood Gas Inspired Oxygen 40 % [facility] Medical Decision Making Medical Screen Exam Complete: Yes Emergency Medical Condition: Yes Medical Record Reviewed: Yes Interpretation(s) EKG: Normal sinus rhythm rate 66 and interventricular conduction delay with LVH no acute ST elevation or injury pattern change nonspecific ST segment flattening laterally Vital Signs Date Time Temp Pulse Resp B/P Pulse Ox O2 Delivery O2 Flow Rate FiO2 03/03/17 20:56 97 BiPAP 40 03/03/17 20:46 97.4 60 21 128/73 96 03/03/17 20:45 98 40 03/03/17 20:45 98 BiPAP CBC & BMP Diagram 03/03/17 21:00 Vital Signs Date Time Temp Pulse Resp B/P Pulse Ox O2 Delivery O2 Flow Rate FiO2 03/03/17 20:56 97 BiPAP 40 03/03/17 20:46 97.4 60 21 128/73 96 03/03/17 20:45 98 40 03/03/17 20:45 98 BiPAP trop I: 0.04, upper limit of normal range; ck: 83, not elevated; bnp: 491, elevated Differential Diagnosis Dyspnea, CHF, unstable angina, ACS, CO, PE, COPD, pneumonia Narrative Course Patient clinically markedly improved per patient as well as EMS after receiving CPAP, Lasix 100 mg IV, albuterol updraft 2, sublingual nitroglycerin 2 prior to arrival to the emergency department. Patient taken off of BiPAP and placed on 2 L/m nasal cannula and O2 saturation increases to 87-88% with some minimal work of breathing but able to speak in complete sentences therefore BiPAP resumed. Patient continues to show evidence of improvement labs pending EKG shows no acute ST elevation or injury pattern Patient continues to deny any chest pain and no shortness of breath at this time ; troponin I is 0.04, not elevated renal function is elevated with creatinine of 1.92 and GFR of 34 Patient with chest x-ray that shows perihilar vascular congestion and bibasilar vascular congestion consistent with pulmonary edema Patient continues to feel comfortable is aware plan for admission in view of patient's recent hospitalizations and cardiac catheterization and ongoing hypoxia on supplemental oxygen nasal cannula will proceed with VQ scan to evaluate as well for possible PE as well as hypertensive urgency with CHF although it appears that CHF is the source of his dyspnea at this time. Blood pressure well controlled with ongoing topical nitroglycerin. Call placed to patient's bacon skin lifter Dr. 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 Stevenson; patient will be admitted to [facility] to have his service as discussed with Dr. Rodriguez. Critical Care Narrative Aggregate critical care time was 35 minutes. Time to perform other separately billable procedures was not included in the critical care time. My time did not include minutes spent treating any other patients simultaneously or on activities that did not directly contribute to the patient's treatment. The services I provided to this patient were to treat and/or prevent clinically significant deterioration that could result in: Respiratory failure/arrest, arrhythmia, I provided critical care services requiring my management, as noted below: Chart data review, documentation time, medication orders and management, vital sign assessments/reviewing monitor data, ordering and reviewing lab tests, ordering and interpreting/reviewing x-rays and diagnostic studies, care of the patient and discussion of the patient with the admitting physicians. Physician Communication Physician Communication call placed to Dr Chicas--discussed with Dr Stevenson --covering; discussed with [facility] MD Dr Rodriguez --will admit to [facility] req v/q Diagnosis Primary Impression: CHF (congestive heart failure) Qualified Code: I50.43 - Acute on chronic combined systolic and diastolic congestive heart failure Additional Impression: CAD (coronary artery disease) Qualified Code: I25.118 - Coronary artery disease of [place] heart with stable angina pectoris, unspecified vessel or lesion type Admitting Information Admitting Physician Requests: Admit Lani Matamoros MD Mar 03, 2017 21:47
[2017-03-03 22:00] VITALS: O2SAT 100
[2017-03-03] MEDS ORDERED: BISACODYL 10 MG SUPP RECTAL PRN (22:15)
[2017-03-03] MEDS ORDERED: DEXTROSE 50% IN WATER 50 ML VIAL(D50) IV PRN (22:15)
[2017-03-03] MEDS ORDERED: MORPHINE SULFATE 4 MG/ML INJ IV PRN (22:15)
[2017-03-03] MEDS ORDERED: LACTULOSE SYRUP 20 GM/30 ML CUP PO PRN (22:15)
[2017-03-03] MEDS ORDERED: SODIUM CHLORIDE 0.9% FLUSH 10 ML FLUSH IV FLUSH PRN (22:15)
[2017-03-03] MEDS ORDERED: GLUCAGON 1 MG/ML VIAL OTHER PRN (22:15)
[2017-03-03] MEDS ORDERED: MAGNESIUM HYDROXIDE SUSP 30 ML CUP PO PRN (22:15)
[2017-03-03] MEDS ORDERED: ACETAMINOPHEN 325 MG TAB PO PRN (22:15)
[2017-03-03] MEDS ORDERED: ACETAMINOPHEN/HYDROcodone 325 MG/5 MG TAB PO PRN (22:15)
[2017-03-03] MEDS ORDERED: ONDANSETRON HCL 4 MG/2 ML VIAL IVP PRN (22:15)
[2017-03-03] MEDS ORDERED: SENNOSIDES 8.6 MG TAB PO PRN (22:15)
--- NOTE | 2017-03-03 22:21 | HHI.HP ---
HPI Service [facility] Primary Care Physician Milton Rosa MD Admission Diagnosis chf; htn; cad Diagnoses: (1) CHF (congestive heart failure) Diagnosis: Principal (2) Hypoxia Diagnosis: Principal (3) Aortic stenosis Diagnosis: Principal (4) Renal insufficiency Diagnosis: Principal (5) DM (diabetes mellitus) Diagnosis: Principal Travel History International Travel<30 Days: No Contact w/Intl Traveler <30 Da: No Traveled to Known Affected Are: No History of Present Illness This is a 76-year-old male with a PMH of HTN, CAD s/p CABG, Mod/Severe Aortic Stenosis, CHF (Echo 02/22/17 w/ EF 35-40%) and DM who was brought to the ER by EMS secondary o severe SOB and chest pain starting earlier this evening. Upon EMS arrival, O2 sat 82-83% on RA, s/p Solu-Medrol, Albuterol x3, NTG, Lasix 100mg IV x1 and started on CPAP w/ O2 sat improved to 96%. Recent admit 02/22- for CHF Exacerbation, s/p eval by Dr. Chicas and Dr. Veloz w/ CT Sx, possible plan for CABG w/ AVR, medical management for now. Pt states he was feeling absolutely fine at time of discharge from hospital. Today, developed acute onset of SOB and chest pain. On arrival, BP 128/73, HR 60, O2 sat 98% on BiPAP, FiO2 40%, Afebrile. WBC 13.3. Creatinine 1.92, previously 2.05 on . 0.04. BNP 491. INR 1.0. CXR with mild failure. VQ Scan w/ no evidence of PE. Review of Systems Except as stated in HPI: all other systems reviewed are Neg ROS: 14 point review of systems otherwise negative. Past Family Social History Past Medical History PMH: HTN, CAD s/p CABG, Mod/Severe Aortic Stenosis, CHF (Echo 02/22/17 w/ EF 35- 40%) and DM Past Surgical History PAST SURGICAL HISTORY: Abdominal Surgery, CABG Cardiac Stent Allergies: Coded Allergies: No Known Allergies (Unverified , 03/03/17) Family History PAST FAMILY HISTORY: Reviewed. No h/o DM or CAD Social History PAST SOCIAL HISTORY: Occasional alcohol. Negative for tobacco or drugs. Physical Exam Vital Signs Vital Signs Date Time Temp Pulse Resp B/P Pulse Ox O2 Delivery O2 Flow Rate FiO2 03/03/17 20:56 97 BiPAP 40 03/03/17 20:46 97.4 60 21 128/73 96 03/03/17 20:45 98 40 03/03/17 20:45 98 BiPAP Physical Exam PE: GENERAL: Extremely pleasant elderly white male in no acute distress on BIPAP, appears comfortable. HEENT: PERRLA, EOMI. No scleral icterus or conjunctival pallor. No lid lag or facial droop. CARDIOVASCULAR: Regular rate and rhythm. No obvious murmurs to auscultation. No chest tenderness to palpation. RESPIRATORY: No obvious rhonchi or wheezing. Clear to auscultation. Breath sounds equal bilaterally. GASTROINTESTINAL: Abdomen soft, non-tender, nondistended. BS normal. MUSCULOSKELETAL: Extremities without clubbing, cyanosis, or edema. No obvious deformities. NEUROLOGICAL: Awake, alert and oriented x4. No focal neurologic deficits. Moving both upper and lower extremities spontaneously. Laboratory Laboratory Tests Test 03/03/17 03/03/17 21:00 21:11 White Blood Count 13.3 Red Blood Count 4.32 Hemoglobin 12.6 Hematocrit 37.7 Mean Corpuscular Volume 87.3 Mean Corpuscular Hemoglobin 29.1 Mean Corpuscular Hemoglobin 33.4 Concent Red Cell Distribution Width 15.4 Platelet Count 229 Mean Platelet Volume 11.2 Neutrophils (%) (Auto) 81.1 Lymphocytes (%) (Auto) 10.0 Monocytes (%) (Auto) 6.6 Eosinophils (%) (Auto) 2.0 Basophils (%) (Auto) 0.3 Neutrophils # (Auto) 10.8 Lymphocytes # (Auto) 1.3 Monocytes # (Auto) 0.9 Eosinophils # (Auto) 0.3 Basophils # (Auto) 0.0 CBC Comment DIFF FINAL Differential Comment Prothrombin Time 11.5 Prothromb Time International 1.0 Ratio Activated Partial 26.7 Thromboplast Time Sodium Level 133 Potassium Level 4.2 Chloride Level 101 Carbon Dioxide Level 20.4 Anion Gap 12 Blood Urea Nitrogen 51 Creatinine 1.92 Estimat Glomerular Filtration 34 Rate Random Glucose 259 Calcium Level 8.6 Magnesium Level 2.4 Total Bilirubin 0.8 Aspartate Amino Transf 25 (AST/SGOT) Alanine Aminotransferase 51 (ALT/SGPT) Alkaline Phosphatase 83 Total Creatine Kinase 83 Troponin I 0.04 B-Type Natriuretic Peptide 491 Total Protein 7.5 Albumin 3.8 Blood Gas Puncture Site RT RADIAL Blood Gas Patient Temperature 98.6 Blood Gas HCO3 21 Blood Gas Base Excess -3.0 Blood Gas Oxygen Saturation 93 Arterial Blood pH 7.44 Arterial Blood Partial 31 Pressure CO2 Arterial Blood Partial 76 Pressure O2 Arterial Blood Oxygen Content 16.2 Arterial Blood 1.7 Carboxyhemoglobin Arterial Blood Methemoglobin 0.8 Blood Gas Hemoglobin 12.4 Oxygen Delivery Device BiPAP Blood Gas Ventilator Setting IPAP10/EPAP5 Blood Gas Inspired Oxygen 40 Result Diagram: 03/03/17209903/03/172099 Assessment and Plan Problem List: (1) CHF (congestive heart failure) ICD Code: I50.9 Status: Acute (2) Hypoxia ICD Code: R09.02 Status: Acute (3) Renal insufficiency ICD Code: N28.9 Status: Acute (4) Aortic stenosis ICD Code: I35.0 Status: Acute (5) DM (diabetes mellitus) ICD Code: E11.9 Status: Acute Assessment and Plan A/P: 1. Hypoxia: acute onset of SOB w/ O2 sat 82-83% on RA per EMS, currently on BIPAP w/ O2 sat improved to 98% on 40% FIO2. Wean as tolerated, monitor O2. CXR w/ mild failure. V/Q Scan without evidence of PE, images reviewed by me. 2. CHF: Acute on Chronic. Systolic. Echo 02/22/17 w/ EF 35-40%, BNP 491, CXR w / mild failure, s/p Lasix 100mg IV x1 by EMS. Will start Lasix 40mg IV bid. Following w/ Dr. Chicas as outpatient, will place consult for further eval. 3. Aortic Stenosis: s/p eval by Dr. Veloz on last admit, Mod/Severe Aortic Stenosis, medical management at this time, however plan for possible AVR and CABG. 4. DM: Sliding scale w/ Accu-Cheks. Hgb A1c 7.4 5. DVT Prophylaxis: Heparin sq 6. Social work for d/c planning as needed. 7. Case discussed w/ ER physician at length. Physician Certification 2 Midnight Certification Type: Admission for Inpatient Services Order for Inpatient Services The services are ordered in accordance with Medicare regulations or non- Medicare payer requirements, as applicable. In the case of services not specified as inpatient-only, they are appropriately provided as inpatient services in accordance with the 2-midnight benchmark. Estimated LOS (days): 2 days is the estimated time the patient will need to remain in the hospital, assuming treatment plan goals are met and no additional complications. Post-Hospital Plan: Not yet determined Problem Qualifiers (1) CHF (congestive heart failure): Qualified Code: I50.43 - Acute on chronic combined systolic and diastolic congestive heart failure Deisy Rodriguez MD Mar 03, 2017 22:21
[2017-03-03 23:55] VITALS: BP 119/57; PULSE 60; RESP 19; O2SAT 96
--- NOTE | 2017-03-03 23:57 | RADRPT ---
EXAM DATE/TIME: 03/03/2017 22:52 [facility] COMPARISON: CT THORAX W/O CONTRAST, February 23, 2017, 20:11. CHEST SINGLE AP, March 03, 2017, 21:07. LUNG VENTILATI ON & PERFUSION SCAN, February 05, 2017, 13:04. INDICATIONS : Dyspnea with congestive heart faliure. DOSE: 1.12 mCi Tc99m DTPA 8.8 mCi Tc99m MAA MEDICAL HISTORY : Myocardial infarction. Hypertension. Stroke. SURGICAL HISTORY : CABG Coronary artery stent. ENCOUNTER: Initial ACUITY: 1 day PAIN SCALE: 0/10 LOCATION: Bilateral chest TECHNIQUE: Following five minutes of tidal breathing of DTPA aerosol, planar images of the lungs were performed in eight projections. The patient was then injected with MAA, and eight-view perfusion scan was perf ormed. FINDINGS: There is mild clumping of radiotracer in the airways centrally but otherwise homogeneous pattern of d elivery to the lungs. No significant change in the pattern when compared to the prior study of 2016 The perfusion lung scan demonstrates a homogenous pattern of uptake in both lungs. No segmental or s ubsegmental defects are seen. CONCLUSION: No evidence of pulmonary embolus. Torey Sutton MD on March 03, 2017 at 23:51 Board Certified Radiologist. This report was verified electronically.
[2017-03-04] VITALS (28 sets, daily range): BP systolic 90–130; BP diastolic 38–70; PULSE 57–73; RESP 18–20; TEMP 97–98; O2SAT 94–99
[2017-03-04] MEDS: INSULIN ASPART SUPPLEMENTAL SCALE SQ SCH ×4 (06:05→20:26)
[2017-03-04] MEDS ORDERED: SODIUM CHLORIDE 0.9% FLUSH 10 ML FLUSH IV FLUSH SCH (09:00)
[2017-03-04] MEDS ORDERED: PNEUMOCOCCAL POLYVALENT INJ 25 MCG/0.5 ML SYR IM ONE (09:00)
[2017-03-04] MEDS ORDERED: FUROSEMIDE 40 MG/4 ML VIAL IV PUSH SCH (09:00)
[2017-03-04] MEDS: RANOLAZINE 500 MG EXTENDED RELEASE TAB PO SCH ×2 (09:12→20:16)
[2017-03-04] MEDS: SODIUM CHLORIDE 0.9% FLUSH 10 ML FLUSH IV FLUSH SCH ×2 (09:12→20:17)
[2017-03-04] MEDS: METOPROLOL TARTRATE 100 MG TAB PO SCH ×2 (09:13→20:17)
[2017-03-04] MEDS: ASPIRIN EC 81 MG TABEC PO SCH (09:13)
[2017-03-04] MEDS: ISOSORBIDE MONONITRATE 20 MG TAB PO SCH (09:13)
[2017-03-04] MEDS: CLOPIDOGREL 75 MG TAB PO SCH (09:13)
[2017-03-04] MEDS: DOCUSATE SODIUM 50 MG/SENNA 8.6 MG TAB PO SCH ×2 (09:13→20:16)
[2017-03-04] MEDS: amLODIPine BESYLATE 5 MG TAB PO SCH (09:14)
[2017-03-04] MEDS: ATORVASTATIN 20 MG TAB PO SCH (09:14)
[2017-03-04] MEDS: FINASTERIDE 5 MG TAB PO SCH (09:14)
[2017-03-04 11:22] LABS: AUTOMATED NEUTROPHIL # 9.4 TH/MM3 (1.8-7.7); BASOPHIL % 0.1 % (0.0-2.0); HEMATOCRIT 35.1 % (39.0-51.0); HEMO FLAGS DIFF FINAL; LYMPH % 3.6 % (9.0-44.0); LYMPHOCYTE # 0.4 TH/MM3 (1.0-4.8); MEAN CORPUSCULAR HEMOGLOBIN 29.2 PG (27.0-34.0); MEAN CORPUSCULAR HGB CONC 33.9 % (32.0-36.0); MONO % 1.5 % (0.0-8.0); NEUT % 94.8 % (16.0-70.0); PLATELET COUNT 225 TH/MM3 (150-450); RED BLOOD COUNT 4.08 MIL/MM3 (4.50-5.90); RED CELL DISTRIBUTION WIDTH 14.9 % (11.6-17.2); WHITE BLOOD COUNT 9.9 TH/MM3 (4.0-11.0)
[2017-03-04 11:57] LABS: ALKALINE PHOSPHATASE 74 U/L (45-117); ALT (GPT) 45 U/L (12-78); ANION GAP 14 MEQ/L (5-15); AST (GOT) 17 U/L (15-37); BICARBONATE 20.7 MEQ/L (21.0-32.0); BLOOD UREA NITROGEN 53 MG/DL (7-18); CHLORIDE 99 MEQ/L (98-107); GLOMERULAR FILTRATION RATE 28 ML/MIN (>89); POTASSIUM 4.1 MEQ/L (3.5-5.1); SODIUM (NA) 134 MEQ/L (136-145); TOTAL BILIRUBIN ADULT 1.1 MG/DL (0.2-1.0)
--- NOTE | 2017-03-04 12:17 | EKG ---
Date Performed: 03/03/2017 Time Performed: 20:46:12 PTAGE: 76 years EKG: Sinus rhythm INTRAVENTRICULAR CONDUCTION DELAY LEFT VENTRICULAR HYPERTROPHY AND ST-T CHANGE ABNORMAL ECG NO PREVIOUS TRACING DOCTOR: Avi Riley Interpretating Date/Time 03/04/2017 12:13:54
--- NOTE | 2017-03-04 13:29 | MB ---
cc: RAJIV DAVIS M.D. DATE OF CONSULTATION: 03/04/2017. REASON FOR CONSULTATION: Congestive heart failure, shortness of breath. PRIMARY CARE PHYSICIAN: Dr. Rosa. ADMITTING PHYSICIAN: Dr. Olivas. MANAGEMENT PROFESSOR: Dr. Chicas CONSULTING PHYSICIAN: Dr. Rajvi Davis IMPRESSION: 1. 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 2. Mild to moderate aortic stenosis with valve area 1.21 cm2. 3. Three vessel coronary artery disease. 4. Ejection fraction 40%. 5. History of hypertension. 6. History of prior stenting. 7. Prior coronary bypass graft surgery with an occluded vein graft to the right coronary artery, evidence of a stent placement to the right coronary artery, a saphenous vein bypass graft to the ramus intermediate branch artery. Uncertain if there is an internal mammary artery graft to the left anterior descending. 8. Renal insufficiency. 9. History of diabetes mellitus. RECOMMENDATIONS: The patient is currently stable on his medications. He claims to be compliant with his medications and his diet. Dr. Chicas will re-evaluate him in the morning. The patient is under the idea that he is going to receive balloon valvuloplasty and/or TAVR. Personally I would think that he might benefit from Entresto. SUBJECTIVE: Mr. Roland is a very pleasant 76-year-old male with a history of coronary artery disease status post bypass graft surgery, mild to moderate aortic stenosis by recent cardiac catheterization 02/05/2017, multiple episodes of acute on chronic combined heart failure, ejection fraction 40% who presented last night to the emergency room with increasing shortness of breath [place] the movie theater which responded immediately to intravenous Lasix and a BiPAP mask. He is currently pain-free and shortness of breath, up and walking about his room. PAST MEDICAL HISTORY: His past medical history is remarkable for: 1. Hypertension. 2. Aortic stenosis. 3. He has had prior bypass and cardiac stenting of the right coronary artery. MEDICATIONS: His medications are listed as: 1. Amlodipine 5 milligrams daily. 2. Aspirin 81 milligrams a day. 3. Plavix 75 milligrams a day. 4. Finasteride 5 milligrams daily. 5. Isosorbide mononitrate 30 milligrams daily. 6. Metoprolol 100 milligrams twice a day. 7. Ranolazine 500 milligrams twice a day. 8. Atorvastatin 20 milligrams daily. 9. Furosemide 40 milligrams twice a day IV push. 10. Insulin on a sliding scale. ALLERGIES: HE HAS NO KNOWN MEDICATION ALLERGIES. FAMILY HISTORY: His family history is unchanged from previous. REVIEW OF SYSTEMS: GI: No recent hematemesis, melena, or blood per rectum. RESPIRATORY: Shortness of breath at rest as above. NEUROLOGIC: No evidence of stroke, epilepsy or TIA. Other twelve-point review of systems is negative except for a history of osteoarthritis. He is listed as having renal insufficiency. Most recent glomerulofiltration rate 34. PHYSICAL EXAMINATION: VITAL SIGNS: On exam, blood pressure 128/70, heart rate 60. HEAD, EYES, EARS, NOSE, THROAT: Pupils are equal. The sclerae are clear. NECK: The neck veins are not distended. LUNGS: The lungs are clear. CARDIAC: There is a grade 2/6 systolic ejection murmur and a diastolic murmur. ABDOMEN: Soft. EXTREMITIES: Without edema. Peripheral pulses are diminished. NEUROLOGIC: Right-handed, fluent speech, moves all extremities. Sensory and motor are intact. LABORATORY: Hemoglobin 12.6, hematocrit 37. BUN 51, creatinine 1.92, GFR 34, glucose 259 random, potassium 4.2. Troponin 0.04. BNP 491. DISCUSSION BNP is a little on the low side for this degree of shortness of breath. A pro-BNP may be in order. Also, consideration for other lung issues in order. Rajiv Davis MD [facility]/[place] /12:06 PM /1:17 PM
--- NOTE | 2017-03-04 13:53 | HHI.PR ---
Subjective Remarks patient feeling better, up and ambulating- comfortable good sats conversing a lot- very animately- no chest pains or shortness of breath no leg swelling or chest pains Objective Vitals Vital Signs Date Time Temp Pulse Resp B/P Pulse Ox O2 Delivery O2 Flow Rate FiO2 03/04/17 13:00 58 03/04/17 12:00 62 03/04/17 11:00 68 03/04/17 11:00 97.0 63 20 94/59 98 03/04/17 10:00 73 03/04/17 09:20 98 Nasal Cannula 2.00 03/04/17 09:00 71 03/04/17 08:13 97 Nasal Cannula 4.00 03/04/17 08:00 69 03/04/17 07:00 97.8 72 20 106/51 98 03/04/17 06:06 113/64 03/04/17 06:00 60 03/04/17 05:00 58 03/04/17 04:34 98.0 63 18 90/38 99 03/04/17 04:00 65 03/04/17 03:00 64 03/04/17 02:00 64 03/04/17 01:00 60 03/04/17 00:22 98.0 59 18 120/68 94 03/04/17 00:20 95 Nasal Cannula 4.00 03/04/17 00:20 59 03/04/17 00:20 95 4.00 03/03/17 23:55 60 19 119/57 96 Nasal Cannula 4 03/03/17 22:00 100 100 03/03/17 20:56 97 BiPAP 40 03/03/17 20:46 97.4 60 21 128/73 96 03/03/17 20:45 98 40 03/03/17 20:45 98 BiPAP I/O 03/03/17 03/03/17 03/03/17 03/04/17 03/04/17 03/04/17 07:00 15:00 23:00 07:00 15:00 23:00 Intake Total 240 ml Output Total 775 ml 600 ml Balance -775 ml -360 ml Intake Oral 240 ml IV Total 0 ml Output Urine Total 775 ml 600 ml # Bowel Movements 0 Result Diagram: 03/04/17 1035 03/04/17 1035 Imaging Last Impressions Chest X-Ray 03/03/172048 Signed Impressions: Service Date/Time: Friday, March 03, 2017 21:07 - CONCLUSION: Mild failure. Dain Moeller MD Lung Scan-VQ Nuclear Medicine 03/03/17 0000 Signed Impressions: Service Date/Time: Friday, March 03, 2017 22:52 - CONCLUSION: No evidence of pulmonary embolus. Torey Sutton MD Objective Remarks awake and alert anicteric lungs no rales or wheezes regular rhythm. 3/6 systolic murmur left sternal border abdomen soft, nontender no leg swelling, no calf tenderness gait steady neuro exam- unremarkable A/P Problem List: (1) CHF (congestive heart failure) ICD Code: I50.9 Status: Acute (2) Hypoxia ICD Code: R09.02 Status: Acute (3) Renal insufficiency ICD Code: N28.9 Status: Acute (4) Aortic stenosis ICD Code: I35.0 Status: Acute (5) DM (diabetes mellitus) ICD Code: E11.9 Status: Acute Assessment and Plan A/P: Acute Hypoxia: acute onset of SOB w/ O2 sat 82-83% on RA. Now improved CHF: Acute on Chronic.Systolic. Echo 02/22/17 w/ EF 35-40%, BNP 491 History of CAD Severe Aortic Stenosis: s/p eval by Dr. Veloz on last admit, Mod/Severe Aortic Stenosis, medical management at this time, - plan for possible AVR and CABG. CXR w/ mild failure. V/Q Scan without evidence of PE, - clinically no edema, lungs now clear , CXR w/ mild failure, s/p Lasix 100mg IV x1 by EMS. (was DC on Lasix 20 mg po daily) now on Lasix 40 mg IV bid- Hold Lasix for now with RM very gentle hydration x 1 L. consider restarting Lasix po in am will consult [facility]- this admission- reevaluate- - 3rd admission in 4 weeks- surgery sooner Acute Kidney Injury on top of CKI Hold Lasix bid for now gentle hydration x 500 cc Nephrology consult DM:type 2 DM- d/w him diet- a1C 7.4 Sliding scale w/ Accu-Cheks for now DVT Prophylaxis: Heparin sq CAse discussed with patient, and daughter Problem Qualifiers (1) CHF (congestive heart failure): Qualified Code: I50.43 - Acute on chronic combined systolic and diastolic congestive heart failure Tristan Garces MD Mar 04, 2017 13:53 Tristan Garces MD Mar 04, 2017 13:53
--- NOTE | 2017-03-04 13:59 | HHI.PR ---
Objective Vitals Vital Signs Date Time Temp Pulse Resp B/P Pulse Ox O2 Delivery O2 Flow Rate FiO2 03/04/17 13:00 58 03/04/17 12:00 62 03/04/17 11:00 68 03/04/17 11:00 97.0 63 20 94/59 98 03/04/17 10:00 73 03/04/17 09:20 98 Nasal Cannula 2.00 03/04/17 09:00 71 03/04/17 08:13 97 Nasal Cannula 4.00 03/04/17 08:00 69 03/04/17 07:00 97.8 72 20 106/51 98 03/04/17 06:06 113/64 03/04/17 06:00 60 03/04/17 05:00 58 03/04/17 04:34 98.0 63 18 90/38 99 03/04/17 04:00 65 03/04/17 03:00 64 03/04/17 02:00 64 03/04/17 01:00 60 03/04/17 00:22 98.0 59 18 120/68 94 03/04/17 00:20 95 Nasal Cannula 4.00 03/04/17 00:20 59 03/04/17 00:20 95 4.00 03/03/17 23:55 60 19 119/57 96 Nasal Cannula 4 03/03/17 22:00 100 100 03/03/17 20:56 97 BiPAP 40 03/03/17 20:46 97.4 60 21 128/73 96 03/03/17 20:45 98 40 03/03/17 20:45 98 BiPAP I/O 03/03/17 03/03/17 03/03/17 03/04/17 03/04/17 03/04/17 07:00 15:00 23:00 07:00 15:00 23:00 Intake Total 240 ml Output Total 775 ml 600 ml Balance -775 ml -360 ml Intake Oral 240 ml IV Total 0 ml Output Urine Total 775 ml 600 ml # Bowel Movements 0 Result Diagram: 03/04/17 1035 03/04/17 1035 Objective Remarks awake and alert anicteric lungs no rales or wheezes regular rhythm. 11/20 systolic murmur left sternal border abdomen soft, nontender no leg swelling, no calf tenderness gait steady neuro exam- unremarkable Tristan Garces MD Mar 04, 2017 13:59 (1) CHF (congestive heart failure) ICD Code: I50.9 Status: Acute (2) Hypoxia ICD Code: R09.02 Status: Acute (3) Renal insufficiency ICD Code: N28.9 Status: Acute (4) Aortic stenosis ICD Code: I35.0 Status: Acute (5) DM (diabetes mellitus) ICD Code: E11.9 Status: Acute Assessment and Plan 76 years old male Acute Hypoxia: acute onset of SOB w/ O2 sat 82-83% on RA - now on 02NC- good sats. up and ambulating well. VQ scan negative for PE CHF: Acute on Chronic. Systolic. Echo 02/22/17 w/ EF 35-40%, BNP 491, CXR w/ mild failure, s/p Lasix 100mg IV x1 by EMS- clinically improved. clincially no edema, no rales Hold Lasix for now with acute kidney injury CAD, Severe Aortic Stenosis: s/p eval by Dr. Veloz on last admit, Mod/Severe Aortic Stenosis, medical management at this time, however plan for possible AVR and CABG. consult Dr. Veloz- reevaluate- third admission in 4 weeks Acute Kidney injury on top of CKI HOld Lasix for now gentle hydration 50 cc/hr of NS DM: Sliding scale w/ Accu-Cheks. Hgb A1c 7.4 DVT Prophylaxis: Heparin sq Social work for d/c planning as needed. Case discussed w/ ER physician at length. Problem Qualifiers (1) CHF (congestive heart failure): Qualified Code: I50.43 - Acute on chronic combined systolic and diastolic congestive heart failure Tristan Garces MD Mar 04, 2017 13:59
[2017-03-04] MEDS ORDERED: SODIUM CHLORID 0.9% 500 ML INJ 500 ML IV SCH (15:00)
[2017-03-05] VITALS (20 sets, daily range): BP systolic 110–140; BP diastolic 64–68; PULSE 42–90; RESP 16–18; TEMP 97.5–98.1; O2SAT 94–99
[2017-03-05] MEDS: HEPARIN SODIUM - SQ 10,000 UNITS/ML VIAL SQ SCH ×2 (00:42→11:45)
[2017-03-05] MEDS: INSULIN ASPART SUPPLEMENTAL SCALE SQ SCH ×3 (05:57→16:00)
[2017-03-05 06:24] LABS: BICARBONATE 24.3 MEQ/L (21.0-32.0); POTASSIUM 4.5 MEQ/L (3.5-5.1)
[2017-03-05] MEDS: RANOLAZINE 500 MG EXTENDED RELEASE TAB PO SCH (08:21)
[2017-03-05] MEDS: DOCUSATE SODIUM 50 MG/SENNA 8.6 MG TAB PO SCH (08:22)
[2017-03-05] MEDS: CLOPIDOGREL 75 MG TAB PO SCH (08:22)
[2017-03-05] MEDS: ATORVASTATIN 20 MG TAB PO SCH (08:22)
[2017-03-05] MEDS: FINASTERIDE 5 MG TAB PO SCH (08:22)
[2017-03-05] MEDS: amLODIPine BESYLATE 5 MG TAB PO SCH (08:22)
[2017-03-05] MEDS: ISOSORBIDE MONONITRATE 20 MG TAB PO SCH (08:22)
[2017-03-05] MEDS: METOPROLOL TARTRATE 100 MG TAB PO SCH ×2 (08:22→09:00)
[2017-03-05] MEDS: ASPIRIN EC 81 MG TABEC PO SCH (08:23)
[2017-03-05] MEDS: SODIUM CHLORIDE 0.9% FLUSH 10 ML FLUSH IV FLUSH SCH (08:23)
--- NOTE | 2017-03-05 11:19 | HHI.PR ---
Subjective Remarks Patient states feels much better denies cp/sob denies fevers/chills denies cough Objective Vitals Vital Signs Date Time Temp Pulse Resp B/P Pulse Ox O2 Delivery O2 Flow Rate FiO2 03/05/17 11:01 69 03/05/17 10:00 68 03/05/17 09:00 62 03/05/17 08:01 52 03/05/17 08:01 97.5 52 18 140/67 94 03/05/17 08:01 94 Room Air 03/05/17 07:01 62 03/05/17 06:00 67 03/05/17 05:00 64 03/05/17 04:00 98.0 85 16 115/64 98 03/05/17 04:00 42 03/05/17 03:00 67 03/05/17 02:00 67 03/05/17 01:00 73 03/05/17 00:00 67 03/05/17 00:00 97.6 55 16 110/64 98 03/04/17 23:00 68 03/04/17 22:00 72 03/04/17 21:00 66 03/04/17 20:00 69 03/04/17 20:00 94 Room Air 03/04/17 20:00 97.9 65 20 95/53 94 03/04/17 19:00 66 03/04/17 18:00 57 03/04/17 17:00 62 03/04/17 16:00 60 03/04/17 15:00 97.5 57 20 130/70 96 03/04/17 15:00 58 03/04/17 14:00 58 03/04/17 13:00 58 03/04/17 12:00 62 I/O 03/04/17 03/04/17 03/04/17 03/05/17 03/05/17 03/05/17 07:00 15:00 23:00 07:00 15:00 23:00 Intake Total 240 ml 822 ml 240 ml Output Total 600 ml Balance -360 ml 822 ml 240 ml Intake Oral 240 ml 720 ml 240 ml IV Total 0 ml 102 ml Output Urine Total 600 ml # Voids 4 2 # Bowel Movements 0 0 Result Diagram: 03/04/17 1035 03/05/17 0502 Imaging Last Impressions Chest X-Ray 03/03/172048 Signed Impressions: Service Date/Time: Friday, March 03, 2017 21:07 - CONCLUSION: Mild failure. Dain Moeller MD Lung Scan- Nuclear Medicine 03/03/17 0000 Signed Impressions: Service Date/Time: Friday, March 03, 2017 22:52 - CONCLUSION: No evidence of pulmonary embolus. Torey Sutton MD Objective Remarks GENERAL: well nourished, sitting in bed. SKIN: Warm and dry. HEAD: Normocephalic. EYES: No scleral icterus. No injection or drainage. NECK: Supple, trachea midline. No JVD or lymphadenopathy. CARDIOVASCULAR: Holosystolic murmur best heard at the second right intercostal space, no rubs or gallops auscultated. RESPIRATORY: Breath sounds equal bilaterally. No accessory muscle use. GASTROINTESTINAL: Abdomen soft, non-tender, nondistended. MUSCULOSKELETAL: No cyanosis, or edema. BACK: Nontender without obvious deformity. No CVA tenderness. Procedures none Medications and IVs Current Medications Medications (Trade) Dose Ordered Sig/Moreno Route Start Time Stop Time Status Last Admin (D50w (Vial) Inj) 50 ml UNSCH PRN IV 03/03/17 22:15 (Glucagon Inj) 1 mg UNSCH PRN OTHER 03/03/17 22:15 (NS Flush) 2 ml UNSCH PRN IV FLUSH 03/03/17 22:15 (NS Flush) 2 ml BID IV FLUSH 03/04/17 09:00 03/05/17 08:23 (Zofran Inj) 4 mg Q6H PRN IVP 03/03/17 22:15 (Heparin Inj) 5,000 units Q12H SQ 03/04/17 23:00 03/05/17 11:45 (Tylenol) 650 mg Q6H PRN PO 03/03/17 22:15 ([place] 5-325 Mg) 1 tab Q4H PRN PO 03/03/17 22:15 (Morphine Inj) 2 mg Q3H PRN IV 03/03/17 22:15 (Corine-Colace) 1 tab BID PO 03/04/17 09:00 03/05/17 08:22 (Milk Of Magnesia Liq) 30 ml Q12H PRN PO 03/03/17 22:15 (Senokot) 17.2 mg Q12H PRN PO 03/03/17 22:15 (Dulcolax Supp) 10 mg DAILY PRN RECTAL 03/03/17 22:15 (Lactulose Liq) 30 ml DAILY PRN PO 03/03/17 22:15 (Norvasc) 5 mg DAILY PO 03/04/17 09:00 03/05/17 08:22 (Ecotrin Ec) 81 mg DAILY PO 03/04/17 09:00 03/05/17 08:23 (Plavix) 75 mg DAILY PO 03/04/17 09:00 03/05/17 08:22 (Proscar) 5 mg DAILY PO 03/04/17 09:00 03/05/17 08:22 (Ismo) 30 mg DAILY PO 03/04/17 09:00 03/05/17 08:22 (Lopressor) 100 mg BID PO 03/04/17 09:00 03/04/17 09:13 (Ranexa) 500 mg BID PO 03/04/17 09:00 03/05/17 08:21 (Lipitor) 20 mg DAILY PO 03/04/17 09:00 03/05/17 08:22 Urinary Catheter: No Vascular Central Line Catheter: No A/P Problem List: (1) Acute on chronic systolic (congestive) heart failure ICD Code: I50.23 Status: Acute Plan: Echo done on showed an EF of 35-40%. BNP 491 Chest x-ray reviewed by me showed mild failure. Treated with IV diuretics which were held on 03/04 due to worsening kidney function. (2) Acute hypoxemic respiratory failure ICD Code: J96.01 Status: Resolved Plan: Likely secondary to acute on chronic systolic heart failure. Chest clear with mild failure as above. VQ scan without evidence of PE. Status post Lasix 100 mg IV 1 by EMS. Currently no signs of edema, lungs clear. (3) RM (acute kidney injury) ICD Code: N17.9 Status: Acute Plan: Upper review of records the patient had a creatinine of 1.6 on 02/05 which is likely the patient's baseline creatinine. Creatinine on admission 1.9 and trended up to 2.30. Medics were held and the patient was given gentle hydration with 500 cc of normal saline with some improvement of creatinine down to 2.24. Continue to monitor BUN/creatinine, strict I's and O's, would nephrotoxins. Patient has severe aortic stenosis and there is a plan for possible aVR and CABG I will consult nephrology. (4) Aortic stenosis ICD Code: I35.0 Status: Acute Plan: Patient has severe aortic stenosis. The patient is status post a valve by Dr. Nunes on last admission. Being treated with medical management at this time. There is a plan for possible aVR and CABG. (5) Diabetes mellitus with hyperglycemia ICD Code: E11.65 Status: Acute Plan: Patient on glyburide at home which was held on admission. 11 A1c was 7.4 on 02/23. I will resume patient's home glyburide dose since blood sugars very elevated and uncontrolled. Continue SSI with insulin NovoLog. Continue to monitor Accu-Cheks (6) CAD (coronary artery disease) ICD Code: I25.10 Status: Acute Plan: Patient has history of CAD. Currently chest pain-free. Continue aspirin 81 mg, Plavix, beta magdy, isosorbide mononitrate, Ranexa, statin. Assessment and Plan GI prophylaxis: Continue bowel regimen to prevent constipation. DVT prophylaxis: SCDs, heparin subcutaneously. Discharge Planning Nephrology consultation pending. Creatinine still not at baseline. Possible DC in 1-2 days pending clinical improvement of acute kidney injury. Problem Qualifiers (1) Diabetes mellitus with hyperglycemia: Qualified Code: E11.65 - Type 2 diabetes mellitus with hyperglycemia, without long-term current use of insulin (2) CAD (coronary artery disease): Qualified Code: I25.10 - Coronary artery disease involving campo coronary artery of campo heart without angina pectoris Natanael Marquez MD Mar 05, 2017 11:19
--- NOTE | 2017-03-05 15:09 | PD.CARD.PN ---
Subjective Subjective Remarks Had CP and sob last night. Now better Objective Medications Administered Medications Medications (Trade) Dose Ordered Sig/Moreno Route PRN Reason Start Time Stop Time Status Last Admin Dose Admin Sodium Chloride (NS Flush) 2 ml BID IV FLUSH 03/04/17 09:00 03/05/17 08:23 Heparin Sodium (Porcine) (Heparin Inj) 5,000 units Q12H SQ 03/04/17 23:00 03/05/17 11:45 Senna/Docusate Sodium (Corine-Colace) 1 tab BID PO 03/04/17 09:00 03/05/17 08:22 Amlodipine Besylate (Norvasc) 5 mg DAILY PO 03/04/17 09:00 03/05/17 08:22 Aspirin (Ecotrin Ec) 81 mg DAILY PO 03/04/17 09:00 03/05/17 08:23 Clopidogrel Bisulfate (Plavix) 75 mg DAILY PO 03/04/17 09:00 03/05/17 08:22 Finasteride (Proscar) 5 mg DAILY PO 03/04/17 09:00 03/05/17 08:22 Isosorbide Mononitrate (Ismo) 30 mg DAILY PO 03/04/17 09:00 03/05/17 08:22 Metoprolol Tartrate (Lopressor) 100 mg BID PO 03/04/17 09:00 03/04/17 09:13 Ranolazine (Ranexa) 500 mg BID PO 03/04/17 09:00 03/05/17 08:21 Atorvastatin Calcium (Lipitor) 20 mg DAILY PO 03/04/17 09:00 03/05/17 08:22 Vital Signs / I&O Vital Signs Date Time Temp Pulse Resp B/P Pulse Ox O2 Delivery O2 Flow Rate FiO2 03/05/17 14:01 90 03/05/17 13:00 68 03/05/17 12:00 66 03/05/17 11:45 98.0 71 18 110/67 98 03/05/17 11:01 69 03/05/17 10:28 96 03/05/17 10:00 68 03/05/17 09:00 62 03/05/17 08:01 52 03/05/17 08:01 97.5 52 18 140/67 94 03/05/17 08:01 94 Room Air 03/05/17 07:01 62 03/05/17 06:00 67 03/05/17 05:00 64 03/05/17 04:00 98.0 85 16 115/64 98 03/05/17 04:00 42 03/05/17 03:00 67 03/05/17 02:00 67 03/05/17 01:00 73 03/05/17 00:00 67 03/05/17 00:00 97.6 55 16 110/64 98 03/04/17 23:00 68 03/04/17 22:00 72 03/04/17 21:00 66 03/04/17 20:00 69 03/04/17 20:00 94 Room Air 03/04/17 20:00 97.9 65 20 95/53 94 03/04/17 19:00 66 03/04/17 18:00 57 03/04/17 17:00 62 03/04/17 16:00 60 I/O 03/04/17 03/04/17 03/04/17 03/05/17 03/05/17 03/05/17 07:00 15:00 23:00 07:00 15:00 23:00 Intake Total 240 ml 822 ml 240 ml Output Total 600 ml Balance -360 ml 822 ml 240 ml Intake Oral 240 ml 720 ml 240 ml IV Total 0 ml 102 ml Output Urine Total 600 ml # Voids 4 2 # Bowel Movements 0 0 Physical Exam GENERAL: Well-nourished, well-developed patient in no apparent distress. SKIN: Warm and dry. NECK: JVD normal - less than or equal to 5 cm H20. CARDIOVASCULAR: Regular rate and rhythm without murmurs, gallops or rubs. RESPIRATORY: Normal breath sounds - equal bilaterally. No accessory muscle use. No wheezes, rales or rubs. PERIPHERY: No cyanosis or edema. Laboratory Laboratory Tests Test 03/05/17 05:02 Sodium Level 138 MEQ/L Potassium Level 4.5 MEQ/L Chloride Level 103 MEQ/L Carbon Dioxide Level 24.3 MEQ/L Anion Gap 11 MEQ/L Blood Urea Nitrogen 64 MG/DL Creatinine 2.24 MG/DL Estimat Glomerular Filtration 29 ML/MIN Rate Random Glucose 176 MG/DL Calcium Level 9.3 MG/DL Assessment and Plan Assessment and Plan Will plan to proceed with referral to [facility] for stent and TAVR as per Dr Veloz Discussed Condition With Dave Yusuf MD Mar 05, 2017 15:09
--- NOTE | 2017-03-09 20:36 | PD.AMA ---
Against Medical Advice Note Discharge Disposition: Against Medical Advice Pt Condition on Discharge: Guarded Recommended Treatment Course (1) Acute on chronic systolic (congestive) heart failure Echo done on showed an EF of 35-40%. BNP 491 Chest x-ray reviewed by me showed mild failure. Treated with IV diuretics which were held on 03/04 due to worsening kidney function. (2) Acute hypoxemic respiratory failure Likely secondary to acute on chronic systolic heart failure. Chest clear with mild failure as above. VQ scan without evidence of PE. Status post Lasix 100 mg IV 1 by EMS. Currently no signs of edema, lungs clear. (3) RM (acute kidney injury) Upper review of records the patient had a creatinine of 1.6 on 02/05 which is likely the patient's baseline creatinine. Creatinine on admission 1.9 and trended up to 2.30. Medics were held and the patient was given gentle hydration with 500 cc of normal saline with some improvement of creatinine down to 2.24. Continue to monitor BUN/creatinine, strict I's and O's, would nephrotoxins. Patient has severe aortic stenosis and there is a plan for possible TAVR and CABG, nephrology consulted. (4) Aortic stenosis Patient has severe aortic stenosis. The patient is status post evaluation by Dr. Nunes on last admission who recommended medical treatment. As per cardiology patient to be referred to [facility] for TAVR and stent placement. (5) Diabetes mellitus with hyperglycemia Patient on glyburide at home which was held on admission. Hemoglobin A1c was 7.4 on 02/23. Patient's glyburide resumed since blood sugars very elevated and uncontrolled. Continue SSI with insulin NovoLog. Continue to monitor Accu-Cheks (6) CAD (coronary artery disease) Patient has history of CAD. Currently chest pain-free. Continue aspirin 81 mg, Plavix, beta magdy, isosorbide mononitrate, Ranexa, statin. GI prophylaxis: Continue bowel regimen to prevent constipation. DVT prophylaxis: SCDs, heparin subcutaneously. AMA Statement Patient Nasir Roland has decided to leave the hospital against medical advice. This patient has the capacity to refuse care and understands the risks of leaving, including permanent disability and/or , and has had an opportunity to ask questions about his condition. The patient has been informed that he may return for care at any time, and follow up has been arranged/ advised. Natanael Marquez MD Mar 09, 2017 20:36
== END 2017-03-05 17:34 | disposition short-term general hospital (02) | DRG 291 ==
LOC: NEPC 20:42 → NEDA 22:19 → HCIS 03-04 00:13
PROVIDERS: ADMIT Hospitalist; ATTEND Hospitalist
DX: I11.0 Hypertensive heart disease with heart failure (principal); J96.01 Acute respiratory failure with hypoxia; N17.9 Acute kidney failure, unspecified; I50.43 Acute on chronic combined systolic (congestive) and diastolic (congestive) heart failure; I25.110 Atherosclerotic heart disease of native coronary artery with unstable angina pectoris; I25.2 Old myocardial infarction; M10.9 Gout, unspecified; E11.65 Type 2 diabetes mellitus with hyperglycemia; E78.00 Pure hypercholesterolemia, unspecified; I35.0 Nonrheumatic aortic (valve) stenosis; Z79.82 Long term (current) use of aspirin; Z86.73 Personal history of transient ischemic attack (TIA), and cerebral infarction without residual deficits; Z95.1 Presence of aortocoronary bypass graft; Z95.5 Presence of coronary angioplasty implant and graft; H91.90 Unspecified hearing loss, unspecified ear
CPT/HCPCS: 36600; 71010; 78582; 80048; 80053; 82550; 82805; 82948; 83735; 83880; 84484; 85025; 85610; 85730; 93005; 94002; 94664; A9540; A9567; J1644; J1815; J1940; J7040

== ENCOUNTER 2017-06-19 01:51 | Inpatient (IN) | payer MEDICARE ==
[~2017-06-19] VITALS: Ht 170.2 cm; Wt 83.3 kg
[2017-06-19] VITALS (11 sets, daily range): BP systolic 131–160; BP diastolic 61–74; PULSE 59–74; RESP 18–22; TEMP 97.4–99; O2SAT 92–97
[2017-06-19] MEDS ORDERED: SODIUM CHLORIDE 0.9% FLUSH 10 ML FLUSH IVF PRN ×2 (02:15→04:15)
[2017-06-19] MEDS ORDERED: FUROSEMIDE 40 MG/4 ML VIAL IVP ONE (02:15)
--- NOTE | 2017-06-19 02:21 | RADRPT ---
EXAM DATE/TIME: 06/19/2017 02:08 [facility] COMPARISON: CHEST SINGLE AP, March 03, 2017, 21:07. INDICATIONS : Shortness of breath. MEDICAL HISTORY : Congestive heart failure. Myocardial infarction. Coronary artery disease. SURGICAL HISTORY : CABG. Coronary artery stent. ENCOUNTER: Initial ACUITY: 1 day PAIN SCORE: 0/10 LOCATION: Bilateral chest FINDINGS: There is an ill-defined infiltrate in the left lung base. Right lung appears reasonably clear. I don' t see a large effusion. No pneumothorax. Heart size stable, mildly enlarged. Median sternotomy and CABG changes are again noted. CONCLUSION: Left base pneumonia. Dain Moeller MD on June 19, 2017 at 2:18 Board Certified Radiologist. This report was verified electronically.
[2017-06-19 02:30] LABS: AUTOMATED NEUTROPHIL # 11.2 TH/MM3 (1.8-7.7); BASOPHIL # 0.3 TH/MM3 (0-0.2); EOSINOPHIL # 0.3 TH/MM3 (0-0.4); EOSINOPHIL % 2.5 % (0.0-4.0); HEMATOCRIT 37.5 % (39.0-51.0); LYMPH % 8.5 % (9.0-44.0); LYMPHOCYTE # 1.2 TH/MM3 (1.0-4.8); MEAN CELL VOLUME 79.4 FL (80.0-100.0); MEAN CORPUSCULAR HEMOGLOBIN 26.9 PG (27.0-34.0); MEAN CORPUSCULAR HGB CONC 33.8 % (32.0-36.0); MONO % 4.9 % (0.0-8.0); NEUT % 82.1 % (16.0-70.0); PLATELET COUNT 214 TH/MM3 (150-450); RED BLOOD COUNT 4.72 MIL/MM3 (4.50-5.90); RED CELL DISTRIBUTION WIDTH 15.5 % (11.6-17.2); WHITE BLOOD COUNT 13.7 TH/MM3 (4.0-11.0)
[2017-06-19 02:40] LABS: CHLORIDE 101 MEQ/L (98-107); POTASSIUM 3.9 MEQ/L (3.5-5.1); SODIUM (NA) 134 MEQ/L (136-145)
[2017-06-19 02:44] LABS: ANION GAP 8 MEQ/L (5-15); BICARBONATE 24.6 MEQ/L (21.0-32.0); BLOOD UREA NITROGEN 36 MG/DL (7-18); HEMO FLAGS AUTO DIFF; MAGNESIUM 2.1 MG/DL (1.5-2.5)
[2017-06-19 02:45] LABS: PROTHROMBIN TIME - PATIENT 10.9 SEC (9.8-11.6)
[2017-06-19 02:47] LABS: ALT (GPT) 33 U/L (12-78); AST (GOT) 21 U/L (15-37); GLOMERULAR FILTRATION RATE 50 ML/MIN (>89)
[2017-06-19 02:49] LABS: TOTAL BILIRUBIN ADULT 1.1 MG/DL (0.2-1.0)
[2017-06-19 02:50] LABS: ALKALINE PHOSPHATASE 126 U/L (45-117); CREATINE KINASE 104 U/L (39-308)
[2017-06-19] MEDS ORDERED: AZITHROMYCIN INJ 500 MG in SODIUM CHLOR 0.9% 250 ML INJ 250 ML IV ONE (03:00)
[2017-06-19] MEDS ORDERED: cefTRIAXone INJ 1,000 MG in SODIUM CHLORIDE 0.9% INJ 100 ML IV ONE (03:00)
[2017-06-19 03:01] LABS: PLATELET ESTIMATE SMEAR NORMAL (NORMAL); PLATELET MORPHOLOGY NORMAL (NORMAL); SCAN/DIFF AUTO DIFF CONFIRMED
[2017-06-19 03:02] LABS: CKMB 1.6 NG/ML (0.5-3.6)
[2017-06-19] MEDS ORDERED: RESP: ALBUTEROL 2.5 MG/IPRATROPIUM 0.5 MG NEB (SCH) NEB ONE (03:30)
--- NOTE | 2017-06-19 03:37 | PD ---
HPI Chief Complaint: Respiratory Distress Time Seen by Provider: 02:06 Travel History International Travel<30 days: No Contact w/Intl Traveler<30days: No Traveled to known affect area: No History of Present Illness HPI 76-year-old male presents to the emergency department by private transportation for evaluation of progressive worsening shortness of breath times one day. Patient has had mild shortness of breath and cough symptoms over the past couple of days but symptoms became worse since 5 PM this evening. Patient has noted orthopnea and PND as well as dyspnea at rest. Patient has prior history of CHF. Patient states in March he underwent placement of a stent to the coronary vessel as well as TAVR at [facility]. Patient denies any chest pain. Patient denies any referred neck jaw back shoulder arm or abdominal pain. Patient has had cough productive of some yellow sputum. Patient does not know she's had a fever. Patient has extensive past medical history that also includes CHF with echocardiogram 02/22/17 with an EF of 30-40% prior respiratory failure secondary to chronic CHF exacerbation chronic kidney injury aortic stenosis previously managed with TAB are diabetes with hyperglycemia and then CAD with previous CABG. Pain is 0/10. PFSH Past Medical History Narrative Medical CAD CABG coronary stent aortic valve replacement CHF hypertension diabetes kidney injury occasional alcohol use; nursing notes reviewed Cardiac Catheterization: Yes Cardiovascular Problems: Yes (CAD, CABG, STENTS, ME, CHF) High Cholesterol: Yes Congestive Heart Failure: Yes (NEW ONSET) Cerebrovascular Accident: Yes (CVA) Coronary Artery Disease: Yes Diabetes: No Diminished Hearing: Yes Endocrine: No Gout: Yes Hypertension: Yes Implanted Vascular Access Dvce: No Musculoskeletal: No Respiratory: Yes (PULMONARY EDEMA) Myocardial Infarction: Yes (x1) Tetanus Vaccination: Unknown Influenza Vaccination: No Past Surgical History Abdominal Surgery: Yes (twisted bowel repair) Coronary Artery Bypass Graft: Yes (triple bypass) Coronary Stent: Yes (one stent in place) Other Surgery: Yes Social History Alcohol Use: Yes (occas. wine) Tobacco Use: No (hx of cigs ) Substance Use: No Allergies-Medications (Allergen,Severity, Reaction): Coded Allergies: No Known Allergies (Unverified , 06/19/17) Reported Meds & Prescriptions Reported Meds & Active Scripts Active Blood Glucose Monitoring W/Device (Device) 1 Kit Kit 1 Kit .ROUTE DIRECTED check FS pre breakfast and predinner and record and bring to PCP office Glyburide 2.5 Mg Tab 1.25 Mg PO DAILYAC 30 Days Reported Amlodipine (Amlodipine Besylate) 5 Mg Tab 5 Mg PO DAILY Isosorbide Mononitrate 20 Mg Tab 30 Mg PO DAILY Take 2 doses 7 hours apart. Aspir-81 (Aspirin) 81 Mg Tabdr 81 Mg PO DAILY Proscar (Finasteride) 5 Mg Tab 5 Mg PO DAILY Do not crush. Rosuvastatin (Rosuvastatin Calcium) 10 Mg Tab 10 Mg PO DAILY Clopidogrel (Clopidogrel Bisulfate) 75 Mg Tab 75 Mg PO DAILY Metoprolol Tartrate 100 Mg Tab 100 Mg PO BID Ranexa ER 12 HR (Ranolazine) 500 Mg Tab 500 Mg PO BID Review of Systems Except as stated in HPI: all other systems reviewed are Neg General / Constitutional: Positive: Chills, No: Fever HENT: Positive: Congestion Cardiovascular: No: Chest Pain or Discomfort Respiratory: Positive: Cough, Shortness of Breath, Wheezing Gastrointestinal: No: Abdominal Pain Genitourinary: No: Flank Pain Musculoskeletal: No: Myalgias, Arthralgias, Edema Skin: No Rash Neurologic: No: Weakness Psychiatric: No: Anxiety Hematologic/Lymphatic: No: Lymph Node Enlargement Physical Exam Narrative GENERAL: Well-developed well-nourished animated very conversant male in no acute distress mild respiratory distress SKIN: Warm and dry. HEAD: Normocephalic. EYES: No scleral icterus. No injection or drainage. NECK: Supple, trachea midline. No JVD or lymphadenopathy. CARDIOVASCULAR: Regular rate and rhythm without murmurs, gallops, or rubs. RESPIRATORY: Breath sounds equal bilaterally with bibasilar crackles. No accessory muscle use. GASTROINTESTINAL: Abdomen soft, non-tender, nondistended. MUSCULOSKELETAL: No cyanosis, or edema. BACK: Nontender without obvious deformity. No CVA tenderness. Data Data Last Documented VS Vital Signs Date Time Temp Pulse Resp B/P (MAP) Pulse Ox O2 Delivery O2 Flow Rate FiO2 06/19/17 02:27 99.0 68 20 160/70 (100) 92 Nasal Cannula 4.00 Orders Orders Complete Blood Count With Diff (06/19/17 02:06) Comprehensive Metabolic Panel (06/19/17 02:06) B-Type Natriuretic Peptide (06/19/17 02:06) Act Partial Throm Time (Ptt) (06/19/17 02:06) Prothrombin Time / Inr (Pt) (06/19/17 02:06) Magnesium (Mg) (06/19/17 02:06) Ckmb (Isoenzyme) Profile (06/19/17 02:06) Troponin I (06/19/17 02:06) Iv Access Insert/Monitor (06/19/17 02:06) Electrocardiogram (06/19/17 02:06) Ecg Monitoring (06/19/17 02:06) Oximetry (06/19/17 02:06) Oxygen Administration (06/19/17 02:06) Chest, Single Ap (06/19/17 02:06) Sodium Chloride 0.9% Flush (Ns Flush) (06/19/17 02:15) Furosemide Inj (Lasix Inj) (06/19/17 02:15) Blood Culture (06/19/17 02:47) Lactic Acid (06/19/17 02:47) Ceftriaxone Inj (Rocephin Inj) (06/19/17 03:00) Azithromycin Inj (Zithromax Inj) (06/19/17 03:00) CKMB (06/19/17 02:22) CKMB% (06/19/17 02:22) Albuterol-Ipratropium Neb (Duoneb Neb) (06/19/17 03:30) Labs Laboratory Tests Test 06/19/17 02:22 06/19/17 02:50 White Blood Count 13.7 TH/MM3 Red Blood Count 4.72 MIL/MM3 Hemoglobin 12.7 GM/DL Hematocrit 37.5 % Mean Corpuscular Volume 79.4 FL Mean Corpuscular Hemoglobin 26.9 PG Mean Corpuscular Hemoglobin Concent 33.8 % Red Cell Distribution Width 15.5 % Platelet Count 214 TH/MM3 Mean Platelet Volume 9.9 FL Neutrophils (%) (Auto) 82.1 % Lymphocytes (%) (Auto) 8.5 % Monocytes (%) (Auto) 4.9 % Eosinophils (%) (Auto) 2.5 % Basophils (%) (Auto) 2.0 % Neutrophils # (Auto) 11.2 TH/MM3 Lymphocytes # (Auto) 1.2 TH/MM3 Monocytes # (Auto) 0.7 TH/MM3 Eosinophils # (Auto) 0.3 TH/MM3 Basophils # (Auto) 0.3 TH/MM3 CBC Comment AUTO DIFF Differential Comment AUTO DIFF CONFIRMED Platelet Estimate NORMAL Platelet Morphology Comment NORMAL Prothrombin Time 10.9 SEC Prothromb Time International Ratio 1.0 RATIO Activated Partial Thromboplast Time 32.0 SEC Blood Urea Nitrogen 36 MG/DL Creatinine 1.40 MG/DL Random Glucose 205 MG/DL Total Protein 8.1 GM/DL Albumin 4.0 GM/DL Calcium Level 9.4 MG/DL Magnesium Level 2.1 MG/DL Alkaline Phosphatase 126 U/L Aspartate Amino Transf (AST/SGOT) 21 U/L Alanine Aminotransferase (ALT/SGPT) 33 U/L Total Bilirubin 1.1 MG/DL Sodium Level 134 MEQ/L Potassium Level 3.9 MEQ/L Chloride Level 101 MEQ/L Carbon Dioxide Level 24.6 MEQ/L Anion Gap 8 MEQ/L Estimat Glomerular Filtration Rate 50 ML/MIN Total Creatine Kinase 104 U/L Creatine Kinase MB 1.6 NG/ML Troponin I 0.02 NG/ML B-Type Natriuretic Peptide 780 PG/ML MDM Medical Decision Making Medical Screen Exam Complete: Yes Emergency Medical Condition: Yes Medical Record Reviewed: Yes Interpretation(s) Troponin i: <0.02, not elevated CK: 104, not elevated BNP: 780, elevated CBC & BMP Diagram 06/19/17 02:22 Total Protein 8.1, Albumin 4.0, Calcium Level 9.4, Magnesium Level 2.1, Alkaline Phosphatase 126 H, Aspartate Amino Transf (AST/SGOT) 21, Alanine Aminotransferase (ALT/SGPT) 33, Total Bilirubin 1.1 H Vital Signs Date Time Temp Pulse Resp B/P (MAP) Pulse Ox O2 Delivery O2 Flow Rate FiO2 06/19/17 02:27 99.0 68 20 160/70 (100) 92 Nasal Cannula 4.00 06/19/17 02:12 22 92 Nasal Cannula 4.00 06/19/17 02:08 22 92 Nasal Cannula 4.00 06/19/17 02:08 92 Nasal Cannula 4.00 CXR: FINDINGS: There is an ill-defined infiltrate in the left lung base. Right lung appears reasonably clear. I don't see a large effusion. No pneumothorax. Heart size stable, mildly enlarged. Median sternotomy and CABG changes are again noted. CONCLUSION: Left base pneumonia. Dain Moeller MD on June 19, 2017 at 2:18 Board Certified Radiologist. This report was verified electronically. Differential Diagnosis Dyspnea, CHF, COPD, pneumonia, ACS, ME, PE Narrative Course Well-developed pleasant animated conversant elderly male with mild shortness of breath and bibasilar crackles to auscultation placed on quality assurance monitor and pulse oximetry EKG performed which shows sinus rhythm with rate of 70 LVH by voltage criterion no acute ST segment elevation change noted; patient administered Lasix and DuoNeb updrafts along with one dose of aspirin. CBC is automated differential shows elevation of white count and chest x-ray shows cardiomegaly with prominence in the left base possible early infiltrate with some mild vascularization Blood culture and lactic acid attitude lab work and patient administered Rocephin and azithromycin in view of patient's complaint of cough productive of yellow sputum mild temperature elevation of 99 without evidence of fever at this time. Patient given DuoNeb updraft Patient clinically improved Physician Communication Physician Communication discussed with Dr Canales for admission Diagnosis Primary Impression: CHF (congestive heart failure) Additional Impressions: Renal insufficiency Pulmonary infiltrate in right lung on chest x-ray Admitting Information Admitting Physician Requests: Admit Lani Matamoros MD Jun 19, 2017 03:37
[2017-06-19] MEDS ORDERED: ASPIRIN 81 MG CHEW TAB CHEW ONE (03:45)
[2017-06-19] MEDS ORDERED: SODIUM CHLORIDE 0.9% FLUSH 10 ML FLUSH IV FLUSH PRN (04:15)
[2017-06-19] MEDS ORDERED: NALOXONE HCL 0.4 MG/ML AMP IV PUSH PRN (04:15)
--- NOTE | 2017-06-19 08:16 | EKG ---
Date Performed: 06/19/2017 Time Performed: 01:59:06 PTAGE: 76 years EKG: Sinus rhythm LEFT VENTRICULAR HYPERTROPHY AND ST-T CHANGE ABNORMAL ECG Compared to prior tracing no significant c duke PREVIOUS TRACING DOCTOR: Silvina Clinton Interpretating Date/Time 06/19/2017 08:13:06
[2017-06-19] MEDS: SODIUM CHLORIDE 0.9% FLUSH 10 ML FLUSH IV FLUSH SCH ×2 (08:33→21:07)
[2017-06-19] MEDS ORDERED: LEVOFLOXACIN 750 MG TAB PO SCH (09:00)
[2017-06-19] MEDS ORDERED: SODIUM CHLORIDE 0.9% FLUSH 10 ML FLUSH IV FLUSH SCH (09:00)
--- NOTE | 2017-06-19 09:11 | HHI.HP ---
[facility] Service [facility] Primary Care Physician Milton Rosa MD Admission Diagnosis chf; LLLinfiltrate Diagnoses: Travel History International Travel<30 Days: No Contact w/Intl Traveler <30 Da: No Traveled to Known Affected Are: No History of Present Illness Mr. Roland is a 76 year old male. He came into the hospital secondary to shortness of breath. He felt that this was related to his heart as last time he felt like this he was having congestive heart failure symptoms that resulted in a valve replacement. Findings are not consistent with a CHF etiology, though there may be a mild exacerbation. Findings are consistent with a left lower lobe pneumonia. No sepsis. Renal function is worse in baseline. Review of Systems Constitutional: DENIES: Fatigue, Fever, Chills Eyes: DENIES: Blurred vision, Diplopia, Eye inflammation Ears, nose, mouth, throat: DENIES: Tinnitus, Hearing loss, Vertigo Respiratory: COMPLAINS OF: Shortness of breath, DENIES: Apneas, Cough, Snoring Cardiovascular: DENIES: Chest pain, Palpitations, Syncope Gastrointestinal: DENIES: Abdominal pain, Black stools, Bloody stools Musculoskeletal: DENIES: Joint pain, Muscle aches, Stiffness, Joint Swelling Integumentary: DENIES: Abnormal pigmentation, Nail changes, Pruritus Hematologic/lymphatic: DENIES: Bruising, Lymphadenopathy Immunologic/allergic: DENIES: Eczema, Urticaria Neurologic: DENIES: Abnormal gait, Headache, Paresthesias Psychiatric: DENIES: Anxiety, Confusion, Hallucinations Past Family Social History Past Medical History HTN CAD s/p CABG Mod/Severe Aortic Stenosis CHF (Echo 02/22/17 w/ EF 35-40%) DM Past Surgical History Abdominal Surgery CABG Cardiac Stent Reported Medications Reported Meds & Active Scripts Active Blood Glucose Monitoring W/Device (Device) 1 Kit Kit 1 Kit .ROUTE DIRECTED check FS pre breakfast and predinner and record and bring to PCP office Glyburide 2.5 Mg Tab 1.25 Mg PO DAILYAC 30 Days Reported Amlodipine (Amlodipine Besylate) 5 Mg Tab 5 Mg PO DAILY Isosorbide Mononitrate 20 Mg Tab 30 Mg PO DAILY Take 2 doses 7 hours apart. Aspir-81 (Aspirin) 81 Mg Tabdr 81 Mg PO DAILY Proscar (Finasteride) 5 Mg Tab 5 Mg PO DAILY Do not crush. Rosuvastatin (Rosuvastatin Calcium) 10 Mg Tab 10 Mg PO DAILY Clopidogrel (Clopidogrel Bisulfate) 75 Mg Tab 75 Mg PO DAILY Metoprolol Tartrate 100 Mg Tab 100 Mg PO BID Ranexa ER 12 HR (Ranolazine) 500 Mg Tab 500 Mg PO BID Allergies: Coded Allergies: No Known Allergies (Unverified , 06/19/17) Active Ordered Medications Administered Medications Medications (Trade) Dose Ordered Sig/Moreno Route PRN Reason Start Time Stop Time Status Last Admin Dose Admin Sodium Chloride (NS Flush) 2 ml BID IV FLUSH 06/19/17 09:00 06/19/17 08:33 Levofloxacin (Levaquin) 750 mg DAILY PO 06/19/17 09:00 06/19/17 08:33 Family History No h/o DM or CAD Social History Occasional alcohol. Negative for tobacco or drugs. Physical Exam Vital Signs Vital Signs Date Time Temp Pulse Resp B/P (MAP) Pulse Ox O2 Delivery O2 Flow Rate FiO2 06/19/17 08:00 97.7 59 20 142/61 (88) 94 06/19/17 05:49 62 06/19/17 04:51 65 20 131/65 (87) 92 Nasal Cannula 4.00 06/19/17 03:31 94 Nasal Cannula 4.00 06/19/17 02:27 99.0 68 20 160/70 (100) 92 Nasal Cannula 4.00 06/19/17 02:12 22 92 Nasal Cannula 4.00 06/19/17 02:08 22 92 Nasal Cannula 4.00 06/19/17 02:08 92 Nasal Cannula 4.00 Physical Exam GENERAL: NAD, A&Ox3 HEAD: Normocephalic. NECK: Supple, trachea midline. No lymphadenopathy. EYES: No scleral icterus. No injection or drainage. CARDIOVASCULAR: Regular rate and rhythm without murmurs, gallops, or rubs. RESPIRATORY: Breath sounds equal bilaterally. No accessory muscle use. GASTROINTESTINAL: Abdomen soft, non-tender, nondistended. MUSCULOSKELETAL: No cyanosis, or edema. SKIN: Warm and dry. NEURO: No focal neurological deficitis. Laboratory Laboratory Tests Test 06/19/17 02:22 06/19/17 03:41 06/19/17 09:00 White Blood Count 13.7 Red Blood Count 4.72 Hemoglobin 12.7 Hematocrit 37.5 Mean Corpuscular Volume 79.4 Mean Corpuscular Hemoglobin 26.9 Mean Corpuscular Hemoglobin Concent 33.8 Red Cell Distribution Width 15.5 Platelet Count 214 Mean Platelet Volume 9.9 Neutrophils (%) (Auto) 82.1 Lymphocytes (%) (Auto) 8.5 Monocytes (%) (Auto) 4.9 Eosinophils (%) (Auto) 2.5 Basophils (%) (Auto) 2.0 Neutrophils # (Auto) 11.2 Lymphocytes # (Auto) 1.2 Monocytes # (Auto) 0.7 Eosinophils # (Auto) 0.3 Basophils # (Auto) 0.3 CBC Comment AUTO DIFF Differential Comment AUTO DIFF CONFIRMED Platelet Estimate NORMAL Platelet Morphology Comment NORMAL Prothrombin Time 10.9 Prothromb Time International Ratio 1.0 Activated Partial Thromboplast Time 32.0 Blood Urea Nitrogen 36 Creatinine 1.40 Random Glucose 205 Total Protein 8.1 Albumin 4.0 Calcium Level 9.4 Magnesium Level 2.1 Alkaline Phosphatase 126 Aspartate Amino Transf (AST/SGOT) 21 Alanine Aminotransferase (ALT/SGPT) 33 Total Bilirubin 1.1 Sodium Level 134 Potassium Level 3.9 Chloride Level 101 Carbon Dioxide Level 24.6 Anion Gap 8 Estimat Glomerular Filtration Rate 50 Total Creatine Kinase 104 Creatine Kinase MB 1.6 Troponin I 0.02 B-Type Natriuretic Peptide 780 Lactic Acid Level 1.0 Date/Time Source Procedure Growth Status 06/19/17 03:00 Blood Peripheral Aerobic Blood Culture Pending Received 06/19/17 03:00 Blood Peripheral Anaerobic Blood Culture Pending Received Result Diagram: 06/19/1722106/19/17221 Imaging Last Impressions Chest X-Ray 06/19/17205 Signed Impressions: Service Date/Time: Monday, June 19, 2017 02:08 - CONCLUSION: Left base pneumonia. MD Yvette Headley VTE Risk Assessment Yvette VTE Risk Assessment: Mod/High Risk (score >= 2) Caprini Risk Assessment Model Point Value = 1 Point Value = 2 Point Value = 3 Point Value = 5 Age 41-60 Minor surgery BMI > 25 kg/m2 Swollen legs Varicose veins or History of unexplained or recurrent spontaneous Oral contraceptives or hormone replacement Sepsis (< 1 month) Serious lung disease, including pneumonia (< 1 month) Abnormal pulmonary function Acute myocardial infarction Congestive heart failure (< 1 month) History of inflammatory bowel disease Medical patient at bed rest Age 61-74 Arthroscopic surgery Major open surgery (> 45 min) Laparoscopic surgery (> 45 min) Malignancy Confined to bed (> 72 hours) Immobilizing plaster cast Central venous access Age >= 75 History of VTE Family history of VTE Factor V Leiden Prothrombin [id number] Lupus anticoagulant Anticardiolipin antibodies Elevated serum homocysteine Heparin-induced thrombocytopenia Other congenital or acquired thrombophilia Stroke (< 1 month) Elective arthroplasty Hip, pelvis, or leg fracture Acute spinal cord injury (< 1 month) Prophylaxis Regimen Total Risk Factor Score Risk Level Prophylaxis Regimen 0-1 Low Early ambulation 2 Moderate Order ONE of the following: *Sequential Compression Device (SCD) *Heparin 5000 units SQ BID 3-4 Higher Order ONE of the following medications: *Heparin 5000 units SQ TID *Enoxaparin/Lovenox 40 mg SQ daily (WT < 150 kg, CrCl > 30 mL/min) *Enoxaparin/Lovenox 30 mg SQ daily (WT < 150 kg, CrCl > 10-29 mL/min) *Enoxaparin/Lovenox 30 mg SQ BID (WT < 150 kg, CrCl > 30 mL/min) AND/OR *Sequential Compression Device (SCD) 5 or more Highest Order ONE of the following medications: *Heparin 5000 units SQ TID (Preferred with Epidurals) *Enoxaparin/Lovenox 40 mg SQ daily (WT < 150 kg, CrCl > 30 mL/min) *Enoxaparin/Lovenox 30 mg SQ daily (WT < 150 kg, CrCl > 10-29 mL/min) *Enoxaparin/Lovenox 30 mg SQ BID (WT < 150 kg, CrCl > 30 mL/min) AND *Sequential Compression Device (SCD) Assessment and Plan Problem List: (1) Pulmonary infiltrate in right lung on chest x-ray ICD Code: R91.8 - Other nonspecific abnormal finding of lung field Status: Acute (2) CHF (congestive heart failure) ICD Code: I50.9 - Heart failure, unspecified Status: Acute (3) Renal insufficiency ICD Code: N28.9 - Disorder of kidney and ureter, unspecified Status: Acute (4) Acute hypoxemic respiratory failure ICD Code: J96.01 - Acute respiratory failure with hypoxia Status: Resolved Assessment and Plan Assessment and plan 76-year-old male admitted with left lower lobe pneumonia, CHF exacerbation, and acute kidney injury Left lower lobe pneumonia Continue oxygen as needed Monitor for any worsening respiratory status Continue Levaquin Probiotics Chronic systolic CHF Acute CHF exacerbation Coronary artery disease History of CABG Improved after diuretic Treat pneumonia Diuresis as needed Improved today Follow clinically for any recurrence of symptoms Acute kidney injury Follow renal function Hypertension Continue baseline blood pressure treatments Follow blood pressures Diabetes mellitus type 2 Follow blood sugars Insulin sliding scale Diabetic diet DVT prophylaxis Lovenox Physician Certification 2 Midnight Certification Type: Admission for Inpatient Services Order for Inpatient Services The services are ordered in accordance with Medicare regulations or non- Medicare payer requirements, as applicable. In the case of services not specified as inpatient-only, they are appropriately provided as inpatient services in accordance with the 2-midnight benchmark. Estimated LOS (days): 2 days is the estimated time the patient will need to remain in the hospital, assuming treatment plan goals are met and no additional complications. Post-Hospital Plan: Home Ken Herbert MD Jun 19, 2017 09:11
[2017-06-19] MEDS ORDERED: GLUCAGON 1 MG/ML VIAL OTHER PRN (13:45)
[2017-06-19] MEDS ORDERED: DEXTROSE 50% IN WATER 50 ML VIAL(D50) IV PUSH PRN (13:45)
[2017-06-19] MEDS ORDERED: ENOXAPARIN SODIUM 40 MG/0.4 ML SYRINGE SQ SCH (15:00)
--- NOTE | 2017-06-19 16:42 | EKG ---
Date Performed: 06/19/2017 Time Performed: 08:53:41 PTAGE: 76 years EKG: Sinus rhythm LEFT VENTRICULAR HYPERTROPHY AND ST-T CHANGE Compared to prior tracing no significant change ABNORMA L ECG PREVIOUS TRACING : 06/19/2017 01.59 DOCTOR: Silvina Clinton Interpretating Date/Time 06/19/2017 16:39:44
[2017-06-19] MEDS: INSULIN ASPART SUPPLEMENTAL SCALE SQ SCH ×2 (17:00→21:08)
[2017-06-19] MEDS: LACTOBACILLUS ACIDOPHILUS TAB PO SCH (17:12)
[2017-06-19] MEDS: METOPROLOL TARTRATE 100 MG TAB PO SCH (21:07)
[2017-06-19] MEDS: RANOLAZINE 500 MG EXTENDED RELEASE TAB PO SCH (21:07)
[2017-06-20] VITALS: BP 146/73; PULSE 65; RESP 20; TEMP 98; O2SAT 97
[2017-06-20 05:45] LABS: AUTOMATED NEUTROPHIL # 7.8 TH/MM3 (1.8-7.7); BASOPHIL % 0.4 % (0.0-2.0); EOSINOPHIL # 0.4 TH/MM3 (0-0.4); EOSINOPHIL % 4.3 % (0.0-4.0); HEMATOCRIT 36.6 % (39.0-51.0); HEMO FLAGS DIFF FINAL; LYMPH % 12.5 % (9.0-44.0); LYMPHOCYTE # 1.3 TH/MM3 (1.0-4.8); MEAN CELL VOLUME 80.1 FL (80.0-100.0); MEAN CORPUSCULAR HEMOGLOBIN 26.8 PG (27.0-34.0); MEAN CORPUSCULAR HGB CONC 33.4 % (32.0-36.0); MONO % 6.8 % (0.0-8.0); PLATELET COUNT 201 TH/MM3 (150-450); RED BLOOD COUNT 4.57 MIL/MM3 (4.50-5.90); RED CELL DISTRIBUTION WIDTH 16.1 % (11.6-17.2); WHITE BLOOD COUNT 10.2 TH/MM3 (4.0-11.0)
[2017-06-20 05:53] LABS: CHLORIDE 101 MEQ/L (98-107); POTASSIUM 4.1 MEQ/L (3.5-5.1); SODIUM (NA) 134 MEQ/L (136-145)
[2017-06-20 07:00] LABS: ALKALINE PHOSPHATASE 97 U/L (45-117); ALT (GPT) 24 U/L (12-78); ANION GAP 6 MEQ/L (5-15); AST (GOT) 14 U/L (15-37); BICARBONATE 27.3 MEQ/L (21.0-32.0); BLOOD UREA NITROGEN 37 MG/DL (7-18); GLOMERULAR FILTRATION RATE 50 ML/MIN (>89)
[2017-06-20 08:00] VITALS: BP 153/77; PULSE 64; RESP 21; TEMP 97.6; O2SAT 99
[2017-06-20] MEDS: METOPROLOL TARTRATE 100 MG TAB PO SCH (08:45)
[2017-06-20] MEDS: RANOLAZINE 500 MG EXTENDED RELEASE TAB PO SCH (08:45)
[2017-06-20] MEDS: SODIUM CHLORIDE 0.9% FLUSH 10 ML FLUSH IV FLUSH SCH (08:45)
[2017-06-20] MEDS: LACTOBACILLUS ACIDOPHILUS TAB PO SCH (08:46)
[2017-06-20] MEDS: INSULIN ASPART SUPPLEMENTAL SCALE SQ SCH ×2 (08:47→12:00)
[2017-06-20] MEDS ORDERED: ISOSORBIDE MONONITRATE 30 MG TAB PO SCH (09:00)
[2017-06-20] MEDS ORDERED: ASPIRIN EC 81 MG TABEC PO SCH (09:00)
[2017-06-20] MEDS ORDERED: amLODIPine BESYLATE 5 MG TAB PO SCH (09:00)
[2017-06-20] MEDS ORDERED: ISOSORBIDE MONONITRATE 20 MG TAB PO SCH (09:00)
[2017-06-20] MEDS ORDERED: ATORVASTATIN 20 MG TAB PO SCH (09:00)
[2017-06-20] MEDS ORDERED: FINASTERIDE 5 MG TAB PO SCH (09:00)
[2017-06-20] MEDS ORDERED: CLOPIDOGREL 75 MG TAB PO SCH (09:00)
[2017-06-20 09:40] LABS: HDL CHOLESTEROL 45.6 MG/DL (40.0-60.0); LDL CHOLESTEROL 112 MG/DL (0-99)
[2017-06-20] MEDS ORDERED: LEVA750T9 PO (12:10)
--- NOTE | 2017-06-20 12:12 | HHI.DS ---
cc: Milton Rosa MD Discharge Summary Admission Date Jun 19, 2017 at 04:15 Discharge Date: Jun 20, 2017 Admitting Diagnosis chf; LLLinfiltrate (1) Pulmonary infiltrate in right lung on chest x-ray ICD Code: R91.8 - Other nonspecific abnormal finding of lung field Status: Acute (2) CHF (congestive heart failure) ICD Code: I50.9 - Heart failure, unspecified Status: Acute (3) Renal insufficiency ICD Code: N28.9 - Disorder of kidney and ureter, unspecified Status: Acute (4) Acute hypoxemic respiratory failure ICD Code: J96.01 - Acute respiratory failure with hypoxia Status: Resolved Procedures none Brief History - From Admission Mr. Roland is a 76 year old male. He came into the hospital secondary to shortness of breath. He felt that this was related to his heart as last time he felt like this he was having congestive heart failure symptoms that resulted in a valve replacement. Findings are not consistent with a CHF etiology, though there may be a mild exacerbation. Findings are consistent with a left lower lobe pneumonia. No sepsis. Renal function is worse in baseline. CBC/BMP: 06/20/17 0455 06/20/17 0455 Significant Findings Laboratory Tests Test 06/19/17 02:22 06/19/17 03:41 06/19/17 09:00 06/19/17 14:05 White Blood Count 13.7 TH/MM3 (4.0-11.0) Hemoglobin 12.7 GM/DL (13.0-17.0) Hematocrit 37.5 % (39.0-51.0) Mean Corpuscular Volume 79.4 FL (80.0-100.0) Mean Corpuscular Hemoglobin 26.9 PG (27.0-34.0) Neutrophils (%) (Auto) 82.1 % (16.0-70.0) Lymphocytes (%) (Auto) 8.5 % (9.0-44.0) Neutrophils # (Auto) 11.2 TH/MM3 (1.8-7.7) Basophils # (Auto) 0.3 TH/MM3 (0-0.2) Activated Partial Thromboplast Time 32.0 SEC (24.3-30.1) Blood Urea Nitrogen 36 MG/DL (7-18) Creatinine 1.40 MG/DL (0.60-1.30) Random Glucose 205 MG/DL (74-106) Alkaline Phosphatase 126 U/L (45-117) Total Bilirubin 1.1 MG/DL (0.2-1.0) Sodium Level 134 MEQ/L (136-145) Estimat Glomerular Filtration Rate 50 ML/MIN (>89) B-Type Natriuretic Peptide 780 PG/ML (0-100) Test 06/20/17 04:55 Hemoglobin 12.2 GM/DL (13.0-17.0) Hematocrit 36.6 % (39.0-51.0) Mean Corpuscular Hemoglobin 26.8 PG (27.0-34.0) Neutrophils (%) (Auto) 76.0 % (16.0-70.0) Eosinophils (%) (Auto) 4.3 % (0.0-4.0) Neutrophils # (Auto) 7.8 TH/MM3 (1.8-7.7) Blood Urea Nitrogen 37 MG/DL (7-18) Creatinine 1.40 MG/DL (0.60-1.30) Random Glucose 141 MG/DL (74-106) Aspartate Amino Transf (AST/SGOT) 14 U/L (15-37) Sodium Level 134 MEQ/L (136-145) Estimat Glomerular Filtration Rate 50 ML/MIN (>89) LDL Cholesterol 112 MG/DL (0-99) Imaging Last Impressions Chest X-Ray 06/19/17 0206 Signed Impressions: Service Date/Time: Monday, June 19, 2017 02:08 - CONCLUSION: Left base pneumonia. Dain Moeller MD PE at Discharge GENERAL: This is a well-nourished, well-developed patient, in no apparent distress. CARDIOVASCULAR: Regular rate and rhythm without murmurs, gallops, or rubs. RESPIRATORY: Clear to auscultation. Breath sounds equal bilaterally. No wheezes , rales, or rhonchi. GASTROINTESTINAL: Abdomen soft, non-tender, nondistended. Normal active bowel sounds MUSCULOSKELETAL: Extremities without clubbing, cyanosis, or edema. NEURO: Alert & Oriented x4 to person, place, time, situation. Moves all ext x4 Pt update on day of discharge Patient seen and evaluated today in follow-up for pneumonia and shortness of breath. Shortness of breath is resolved. Leukocytosis improved. Patient does not require oxygen as per walk test completed morning. Discharge plans discussed with patient Hospital Course Patient is a 76-year-old gentleman had some shortness of breath and came to the hospital for further evaluation. He had some leukocytosis and some mild hypoxemia with evidence of pneumonia. Patient did well with oxygenation and antibiotic administration. He did not require oxygen at discharge. He felt well. No evidence clinical exam of congestive heart failure. Pt Condition on Discharge: Good Discharge Disposition: Discharge Home Discharge Time: > 30 minutes Discharge Instructions DIET: Follow Instructions for: Heart Healthy Diet Activities you can perform: Regular-No Restrictions Follow up Referrals: PCP Follow-up - 1 Week with say New Medications: Levofloxacin (Levaquin) 750 Mg Tablet 750 MG PO Q2D for Infection, #5 TAB Continued Medications: Amlodipine (Amlodipine) 5 Mg Tab 5 MG PO DAILY for Blood Pressure Management, #30 TAB [address] (Aspir-81) 81 Mg Tabdr 81 MG PO DAILY Clopidogrel (Clopidogrel) 75 Mg Tab 75 MG PO DAILY for Blood Clot Prevention, #30 TAB 0 Refills Finasteride (Proscar) 5 Mg Tab 5 MG PO DAILY for Manage Prostate Problems, #30 TAB 0 Refills Do not crush. Glyburide (Glyburide) 2.5 Mg Tab 1.25 MG PO DAILYAC for DM for 30 Days, TAB Isosorbide Mononitrate (Isosorbide Mononitrate) 20 Mg Tab 30 MG PO DAILY for Prevent Chest Pain, #60 TAB 0 Refills Take 2 doses 7 hours apart. Metoprolol Tartrate (Metoprolol Tartrate) 100 Mg Tab 100 MG PO BID, #60 TAB 0 Refills Ranolazine ER 12 HR (Ranexa ER 12 HR) 500 Mg Tab 500 MG PO BID for Chest Pain, #60 TAB 0 Refills Rosuvastatin (Rosuvastatin) 10 Mg Tab 10 MG PO DAILY for Cholesterol Management, TAB 0 Refills Brittany Toribio MD Jun 20, 2017 12:12
[2017-06-20] MEDS ORDERED: ISOS30TA3 PO (12:39)
--- NOTE | 2017-06-20 14:26 | EKG ---
Date Performed: 06/19/2017 Time Performed: 14:09:14 PTAGE: 76 years EKG: Sinus rhythm LEFT VENTRICULAR HYPERTROPHY AND ST-T CHANGE ABNORMAL ECG PREVIOUS TRACING : 06/19/2017 08.53 DOCTOR: Girma London Interpretating Date/Time 06/20/2017 14:25:07
[2017-06-21] MEDS ORDERED: LEVOFLOXACIN 750 MG TAB PO SCH ×2 (11:00)
== END 2017-06-20 13:25 | disposition home or self-care (01) | DRG 193 ==
LOC: PHED 01:51 → PHEDA 04:15 → PH3B 05:28
PROVIDERS: ADMIT Hospitalist; ATTEND Hospitalist
DX: J18.1 Lobar pneumonia, unspecified organism (principal); J96.01 Acute respiratory failure with hypoxia; N17.9 Acute kidney failure, unspecified; I50.22 Chronic systolic (congestive) heart failure; E11.9 Type 2 diabetes mellitus without complications; I11.0 Hypertensive heart disease with heart failure; E78.00 Pure hypercholesterolemia, unspecified; I25.10 Atherosclerotic heart disease of native coronary artery without angina pectoris; Z95.1 Presence of aortocoronary bypass graft; H91.90 Unspecified hearing loss, unspecified ear; M10.9 Gout, unspecified; Z86.73 Personal history of transient ischemic attack (TIA), and cerebral infarction without residual deficits; Z95.2 Presence of prosthetic heart valve; Z95.5 Presence of coronary angioplasty implant and graft; I35.0 Nonrheumatic aortic (valve) stenosis
CPT/HCPCS: 71010; 80053; 80061; 82550; 82552; 82948; 83605; 83735; 83880; 84484; 85025; 85610; 85730; 87040; 93005; 94620; 94664; 96365; 96375; J0456; J0696; J1650; J1815; J1940; J7050